=== PATIENT | female | born 1945 | race Caucasian/White ===

== ENCOUNTER 2017-07-09 22:51 | Inpatient (IN) | payer MEDICARE ==
[~2017-07-09] VITALS: Ht 160 cm; Wt 101.8 kg
[~2017-07-09 22:51] MED LIST: ALLO300 PO; ASPI81TA82 PO; BACL20TA PO; FERR65TA2 PO; FURO1TAB93 PO; GLUCTAB PO; HYDR10TA16 PO; LANSO15 PO; LIPI40TA PO; LORTA5 PO; METO50 PO; MOBI7.5T PO; PRED20 PO; SERT-132 PO; SYNT25TA PO
[2017-07-09 22:55] VITALS: BP 178/93; PULSE 90; RESP 16; TEMP 98.3; O2SAT 98
--- NOTE | 2017-07-09 23:38 | PD ---
HPI Chief Complaint: Chest Pain Time Seen by Provider: 23:32 Travel History International Travel<30 days: No Contact w/Intl Traveler<30days: No Traveled to known affect area: No History of Present Illness HPI The patient is a 72 year old female who presents to the [facility] emergency department with a history of chest pain and she reports began 2 days ago. The patient reports that the pain is located in the midepigastric area and underneath the left breast. The patient reports that the pain was coming and going until yesterday evening when it became persistent. She reports that the pain as an 8 out of 10 in severity currently. She reports that the pain has a dull character. She reports that at first she thought it may be angina or pleurisy as she has had both in the past, however the symptoms were worse this evening. She reports that she has associated nausea without vomiting. She reports that this evening the pain was radiating into the left arm. She denies having any shortness of breath. She denies having any diaphoresis. 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 She reports that she last had a stress test done approximately 2 years ago. She reports that she has had a history of cardiac catheterization with stent placement previously. On review of systems otherwise, the patient denies any recent fevers, cough, congestion, neck pain, abdominal pain, diarrhea, urinary symptoms, or neurologic symptoms. She last moved her bowels earlier today. She denies having any blood in her stool or black or tarry stools. She reports that she takes a low-dose aspirin daily. The patient denies any indigestion or worsening heartburn. [facility] Past Medical History Narrative Medical The patient's past medical history is significant for having coronary artery disease with a history of reactive At her rosace and was sent placement previously, history of hypertension, history of renal artery stenosis status post renal artery stent, history of hypothyroid disorder, asthma, osteoarthritis , hyperlipidemia, history of GI ulcers, acid reflux, gout, anemia, history of renal stones, carpal tunnel syndrome. Hx Anticoagulant Therapy: Yes (ASA) Arthritis: Yes Asthma: Yes Autoimmune Disease: No Blood Disorders: No Anxiety: No Depression: Yes Heart Rhythm Problems: Yes Cancer: No Cardiovascular Problems: Yes ([place]) High Cholesterol: Yes Chest Pain: Yes (HX OF ANGINA) Congestive Heart Failure: Yes COPD: No Cerebrovascular Accident: No Diabetes: Yes Patient Takes Glucophage: Yes (metformin ) Endocrine: No Gastrointestinal Disorders: Yes (ULCERS) GERD: Yes Gout: Yes Genitourinary: Yes (KIDNEY STONE HX) Hiatal Hernia: Yes Hypertension: Yes Immune Disorder: No Kidney Stones: Yes Musculoskeletal: No Neurologic: No Psychiatric: Yes Reproductive: No Respiratory: Yes (ASTHMA) Migraines: No Myocardial Infarction: Yes (2005) Renal Failure: No Seizures: No Sleep Apnea: Yes Ulcer: Yes Past Surgical History Narrative Surgical The patient's past surgical history is significant for a hysterectomy, bilateral knee replacements, , coronary artery catheterization with stent placement, renal artery stent. Abdominal Surgery: Yes (C SECTION,HYSTERECTOMY) AICD: No Arteriovenous Shunt: No Cardiac Surgery: Yes (STENT 2005) Section: Yes Coronary Stent: Yes (2005) Ear Surgery: No Endocrine Surgery: No Eye Surgery: Yes (CORNEA SX) Genitourinary Surgery: Yes (KIDNEY STONES-STENTS) Gynecologic Surgery: Yes (C SECTION,HYSTERECTOMY) Hysterectomy: Yes Insulin Pump: No Joint Replacement: Yes (BILATERAL KNEE ) Oral Surgery: No Pacemaker: No Thoracic Surgery: No Other Surgery: Yes Social History Alcohol Use: No Tobacco Use: No Substance Use: No Allergies-Medications (Allergen,Severity, Reaction): Uncoded Allergies: RED SNAPPER (Allergy, Severe, HIVES, 04/30/12) WOOL (Allergy, Severe, HIVES, 04/30/12) bees (Allergy, Severe, HIVES, 04/30/12) Reported Meds & Prescriptions Reported Meds & Active Scripts Active Reported Aspirin 81 Mg Chew 81 Mg CHEW DAILY Sertraline (Sertraline HCl) 50 Mg Tab 50 Mg PO DAILY Gabapentin 300 Mg Cap 300 Mg PO TID Atorvastatin (Atorvastatin Calcium) 40 Mg Tab 40 Mg PO HS Lansoprazole 30 Mg Capdr 30 Mg PO DAILY Metformin (Metformin HCl) 500 Mg Tab 500 Mg PO BIDPC Amlodipine (Amlodipine Besylate) 10 Mg Tab 10 Mg PO DAILY Metoprolol Tartrate 100 Mg Tab 150 Mg PO BID Allopurinol 300 Mg Tab 300 Mg PO DAILY Baclofen 20 Mg Tab 20 Mg PO TID Furosemide 40 Mg Tab 40 Mg PO BID Levothyroxine (Levothyroxine Sodium) 75 Mcg Tab 75 Mcg PO DAILY Potassium Chloride ER (Potassium Chloride) 10 Meq Cap 10 Meq PO DAILY Review of Systems Except as stated in HPI: all other systems reviewed are Neg General / Constitutional: No: Fever Eyes: No: Visual changes HENT: No: Headaches Cardiovascular: Positive: Chest Pain or Discomfort, No: Dyspnea on exertion Respiratory: Positive: Shortness of Breath, No: Cough Gastrointestinal: Positive: Nausea, No: Vomiting, Diarrhea, Abdominal Pain, Changes in Bowel Habits, Indigestion, Loss of Appetite Genitourinary: No: Dysuria Musculoskeletal: No: Pain Skin: No Rash Neurologic: No: Weakness Psychiatric: No: Depression Endocrine: No: Polydipsia Hematologic/Lymphatic: No: Easy Bruising Physical Exam Narrative General: The patient is a well-developed well-nourished female in no acute distress. Head and Neck exam: Head is normocephalic atraumatic. Eyes: EOMI, pupils are equal round and reactive to light. Nose: Midline septum with pink mucous membranes Mouth: Dentition unremarkable. Moist mucus membranes. Posterior oropharynx is not erythematous. No tonsillar hypertrophy. Uvula midline. Airway patent. Neck: No palpable lymphadenopathy. No nuchal rigidity. No thyromegaly. Cardiovascular: Regular rate and rhythm without murmurs, gallops, or rubs. Lungs: Clear to auscultation bilaterally. No wheezes, rhonchi, or rales. Abdomen: Soft, with reported tenderness on palpation along the midepigastric area and bilateral upper quadrants of the abdomen, no other tenderness on palpation of the lower quadrants of the abdomen. No tenderness on palpation of McBurney's point. No guarding, rebound, or rigidity. Negative Foster's sign. Normal bowel sounds are audible. Extremities: No clubbing, cyanosis, or edema. 2+ pulses in all 4 extremities. No calf tenderness on palpation. Back: No spinous process tenderness to palpation. Right-sided CVA tenderness on palpation. Neurologic Exam: Grossly nonfocal. Skin Exam: No rash noted. Intact skin that is warm and dry. Data Data Last Documented VS Vital Signs Date Time Temp Pulse Resp B/P (MAP) Pulse Ox O2 Delivery O2 Flow Rate FiO2 07/10/17 02:30 72 16 161/76 (104) 91 Room Air 07/10/17 01:00 2.00 07/09/17 22:55 98.3 Orders Orders Electrocardiogram (07/09/17 23:38) B-Type Natriuretic Peptide (07/09/17 23:38) Ckmb (Isoenzyme) Profile (07/09/17 23:38) Complete Blood Count With Diff (07/09/17 23:38) Comprehensive Metabolic Panel (07/09/17:38) Magnesium (Mg) (07/09/17 23:38) Prothrombin Time / Inr (Pt) (07/09/17:38) Act Partial Throm Time (Ptt) (07/09/17:38) Troponin I (07/09/17:38) Lipase (07/09/17 23:38) Chest, Single Ap (07/09/17:38) Ecg Monitoring (07/09/17:38) Bilateral Bp Monitoring (07/09/17:38) Iv Access Insert/Monitor (07/09/17:38) Oximetry (07/09/17:38) Oxygen Administration (07/09/17 23:38) Aspirin Chew (Aspirin Chew) (07/09/17 23:45) Nitroglycerin 2% Oint (Nitroglycerin 2% (07/09/17 23:45) Sodium Chloride 0.9% Flush (Ns Flush) (07/09/17 23:45) Nitroglycerin Sl (Nitrostat Sl) (07/09/17 23:45) CKMB (07/09/17 23:45) CKMB% (07/09/17 23:45) Potassium Chloride Eff (K-Lyte Cl Eff) (07/10/17 01:00) Urinalysis - C+S If Indicated (07/10/17 02:15) Admit Order (Ed Use Only) (07/10/17 02:42) Urine Culture (07/10/17 02:20) Labs Laboratory Tests Test 07/09/17 23:45 07/10/17 02:20 White Blood Count 15.6 TH/MM3 Red Blood Count 4.07 MIL/MM3 Hemoglobin 11.4 GM/DL Hematocrit 34.2 % Mean Corpuscular Volume 83.9 FL Mean Corpuscular Hemoglobin 27.9 PG Mean Corpuscular Hemoglobin Concent 33.3 % Red Cell Distribution Width 14.9 % Platelet Count 465 TH/MM3 Mean Platelet Volume 7.4 FL Neutrophils (%) (Auto) 73.8 % Lymphocytes (%) (Auto) 18.3 % Monocytes (%) (Auto) 6.0 % Eosinophils (%) (Auto) 1.2 % Basophils (%) (Auto) 0.7 % Neutrophils # (Auto) 11.5 TH/MM3 Lymphocytes # (Auto) 2.8 TH/MM3 Monocytes # (Auto) 0.9 TH/MM3 Eosinophils # (Auto) 0.2 TH/MM3 Basophils # (Auto) 0.1 TH/MM3 CBC Comment DIFF FINAL Differential Comment Prothrombin Time 12.0 SEC Prothromb Time International Ratio 1.1 RATIO Activated Partial Thromboplast Time 32.9 SEC Blood Urea Nitrogen 15 MG/DL Creatinine 0.97 MG/DL Random Glucose 138 MG/DL Total Protein 8.4 GM/DL Albumin 3.3 GM/DL Calcium Level 8.0 MG/DL Magnesium Level 0.9 MG/DL Alkaline Phosphatase 185 U/L Aspartate Amino Transf (AST/SGOT) 14 U/L Alanine Aminotransferase (ALT/SGPT) 10 U/L Total Bilirubin 0.3 MG/DL Sodium Level 137 MEQ/L Potassium Level 2.4 MEQ/L Chloride Level 94 MEQ/L Carbon Dioxide Level 31.3 MEQ/L Anion Gap 12 MEQ/L Estimat Glomerular Filtration Rate 56 ML/MIN Total Creatine Kinase 130 U/L Creatine Kinase MB 1.0 NG/ML Troponin I LESS THAN 0.02 NG/ML B-Type Natriuretic Peptide 42 PG/ML Lipase 173 U/L Urine Color YELLOW Urine Turbidity HAZY Urine pH 5.5 Urine Specific [place] 1.012 Urine Protein TRACE mg/dL Urine Glucose (UA) NEG mg/dL Urine Ketones NEG mg/dL Urine Occult Blood SMALL Urine Nitrite NEG Urine Bilirubin NEG Urine Urobilinogen LESS THAN 2.0 MG/DL Urine Leukocyte Esterase LARGE Urine RBC 2 /hpf Urine WBC 13 /hpf Urine Squamous Epithelial Cells 2 /hpf Urine Transitional Epithelial Cells 3 /hpf Microscopic Urinalysis Comment CULTURE INDICATED MDM Medical Decision Making Medical Screen Exam Complete: Yes Emergency Medical Condition: Yes Medical Record Reviewed: Yes Interpretation(s) Last Impressions Chest X-Ray 07/09/17 5692 Signed Impressions: Service Date/Time: Sunday, July 09, 2017 23:44 - CONCLUSION: 1. No acute cardiopulmonary disease. Lj Vasquez MD Differential Diagnosis Acute coronary syndrome, versus pancreatitis, versus acid reflux, versus peptic ulcer disease Narrative Course During the course of the patients emergency department visit, the patients history, examination, and differential diagnosis were reviewed with the patient. The patient had IV access obtained and blood work sent for analysis. The patient was placed on a classroom monitor with oximetry and blood pressure monitoring. An EKG was done on arrival. The patient's EKG showed no evidence of acute ST segment elevation. The patient was initially provided aspirin 324 mg by mouth 1, nitroglycerin sublingual 1, nitroglycerin 1 inch the chest wall. The patients laboratory studies were reviewed and remarkable for a white count of 15.6, hemoglobin 11.4, platelets 465 with 73.8 neutrophil. CMP is remarkable for potassium 2.4 which was supplemented orally with 50 mEq of potassium chloride. Glucose 138, calcium 8.0, magnesium 0.9, AST 14, alkaline phosphatase 185, CPK 1:30, troponin I less than 0.02, BNP 42, lipase 173. PT 12 , PTT 32.9, urinalysis shows small occult blood, large leukocyte esterase, 13 WBCs, culture indicated. Culture will be done. Radiology studies were reviewed and remarkable for a chest x-ray that shows no evidence of acute cardiopulmonary disease. Given the patient's history of coronary artery disease the patient will be admitted to the hospital for rule out serial cardiac enzyme protocol as well as further treatment of her hypokalemia. The patients results were discussed with the patient, including the plan of care. I explained that further testing and/ or monitoring is indicated based on the patients history, examination, and/ or laboratory findings. Therefore, I recommended admission for additional evaluation. The patient expressed understanding and was agreeable with this plan. The patient was admitted to the hospital in stable condition and sent to a bed under the care of [facility]. Physician Communication Physician Communication The patient's case was d/w Dr. Rivero for admission. She did agree to admit the patient for further evaluation and treatment at this time. Diagnosis Primary Impression: Chest pain, rule out acute myocardial infarction Additional Impression: Hypokalemia Admitting Information Admitting Physician Requests: Admit Iris Hernandes MD Jul 09, 2017 23:38
[2017-07-09 23:39] VITALS: BP 173/84; PULSE 73; RESP 18; O2SAT 91
[2017-07-09] MEDS ORDERED: ALLO300T2 PO (23:39)
[2017-07-09] MEDS ORDERED: LEVO75TA3 PO (23:39)
[2017-07-09] MEDS ORDERED: ATOR40TA16 PO (23:39)
[2017-07-09] MEDS ORDERED: AMLO10TA2 PO (23:39)
[2017-07-09] MEDS ORDERED: ASPI81CH CHEW (23:39)
[2017-07-09] MEDS ORDERED: BACL20TA PO (23:39)
[2017-07-09] MEDS ORDERED: METO100T PO (23:39)
[2017-07-09] MEDS ORDERED: FURO40TA PO (23:39)
[2017-07-09] MEDS ORDERED: METF500T PO (23:39)
[2017-07-09] MEDS ORDERED: GABA300C5 PO (23:39)
[2017-07-09] MEDS ORDERED: POTA10CA PO (23:39)
[2017-07-09] MEDS ORDERED: LANS30CA PO (23:39)
[2017-07-09] MEDS ORDERED: SERT-132 PO (23:39)
[2017-07-09] MEDS ORDERED: ASPIRIN 81 MG CHEW TAB PO ONE (23:45)
[2017-07-09] MEDS ORDERED: SODIUM CHLORIDE 0.9% FLUSH 10 ML FLUSH IVF PRN (23:45)
[2017-07-09] MEDS ORDERED: NITROGLYCERIN 0.4 MG SL 25 TABS/BTL SL ONE (23:45)
[2017-07-09] MEDS ORDERED: NITROGLYCERIN 2% OINT 1 GM PACKET TOP ONE (23:45)
[2017-07-09 23:55] VITALS: BP 161/79; PULSE 84; RESP 18; O2SAT 94
[2017-07-09 23:55] LABS: AUTOMATED NEUTROPHIL # 11.5 TH/MM3 (1.8-7.7); BASOPHIL # 0.1 TH/MM3 (0-0.2); BASOPHIL % 0.7 % (0.0-2.0); EOSINOPHIL # 0.2 TH/MM3 (0-0.4); EOSINOPHIL % 1.2 % (0.0-4.0); HEMATOCRIT 34.2 % (35.0-46.0); HEMO FLAGS DIFF FINAL; LYMPH % 18.3 % (9.0-44.0); LYMPHOCYTE # 2.8 TH/MM3 (1.0-4.8); MEAN CELL VOLUME 83.9 FL (80.0-100.0); MEAN CORPUSCULAR HEMOGLOBIN 27.9 PG (27.0-34.0); MEAN CORPUSCULAR HGB CONC 33.3 % (32.0-36.0); NEUT % 73.8 % (16.0-70.0); PLATELET COUNT 465 TH/MM3 (150-450); RED BLOOD COUNT 4.07 MIL/MM3 (4.00-5.30); RED CELL DISTRIBUTION WIDTH 14.9 % (11.6-17.2); WHITE BLOOD COUNT 15.6 TH/MM3 (4.0-11.0)
[2017-07-10] VITALS (18 sets, daily range): BP systolic 130–161; BP diastolic 60–87; PULSE 66–89; RESP 16–24; TEMP 98.5–99.3; O2SAT 91–97
--- NOTE | 2017-07-10 00:22 | RADRPT ---
EXAM DATE/TIME: 07/09/2017 23:44 [place] COMPARISON: No previous studies available for comparison. INDICATIONS : Chest pain. MEDICAL HISTORY : Hypertension. Diabetes mellitus type II. Asthma SURGICAL HISTORY : Coronary artery stent. Renal stent ENCOUNTER: Initial ACUITY: 1 day PAIN SCORE: 5/10 LOCATION: Bilateral chest FINDINGS: A single view of the chest demonstrates the lungs to be symmetrically aerated without evidence of mas s, infiltrate or effusion. The cardiomediastinal contours are unremarkable. Osseous structures are intact. CONCLUSION: 1. No acute cardiopulmonary disease. Lj Vasquez MD on July 10, 2017 at 0:21 Board Certified Radiologist. This report was verified electronically.
[2017-07-10 00:35] LABS: ALKALINE PHOSPHATASE 185 U/L (45-117); ALT (GPT) 10 U/L (10-53); ANION GAP 12 MEQ/L (5-15); AST (GOT) 14 U/L (15-37); BICARBONATE 31.3 MEQ/L (21.0-32.0); BLOOD UREA NITROGEN 15 MG/DL (7-18); CHLORIDE 94 MEQ/L (98-107); CREATINE KINASE 130 U/L (26-192); GLOMERULAR FILTRATION RATE 56 ML/MIN (>89); MAGNESIUM 0.9 MG/DL (1.5-2.5); SODIUM (NA) 137 MEQ/L (136-145); TOTAL BILIRUBIN ADULT 0.3 MG/DL (0.2-1.0)
[2017-07-10 00:50] LABS: POTASSIUM 2.4 MEQ/L (3.5-5.1)
[2017-07-10 00:52] LABS: APTT (PATIENT) 32.9 SEC (24.3-30.1); INTERNATIONAL NORMALIZED RATIO 1.1 RATIO
[2017-07-10] MEDS ORDERED: POTASSIUM CHLORIDE 25 MEQ EFFERVESCENT TAB PO ONE (01:00)
[2017-07-10 02:42] LABS: BLOOD, URINE SMALL (NEG); COMMENT (UR) CULTURE INDICATED; CULTURE IF INDICATED CULTURE INDICATED; GLUCOSE,URINE NEG (NEG); KETONE, URINE NEG (NEG); NITRITE,URINE NEG (NEG); PH, URINE 5.5 (5.0-8.5); SQUAMOUS EPITHELIAL CELL URINE 2 /hpf (0-5); TRANSITIONAL EPI CELLS, URINE 3 /hpf; URINE COLOR YELLOW (YELLW/STRAW)
[2017-07-10] MEDS ORDERED: ONDANSETRON HCL 4 MG/2 ML VIAL IVP PRN (02:45)
[2017-07-10] MEDS ORDERED: SODIUM CHLORIDE 0.9% FLUSH 10 ML FLUSH IV FLUSH PRN (02:45)
[2017-07-10] MEDS ORDERED: DEXTROSE 50% IN WATER 50 ML VIAL(D50) IV PUSH PRN (02:45)
[2017-07-10] MEDS ORDERED: MAGNESIUM HYDROXIDE SUSP 30 ML CUP PO PRN (02:45)
[2017-07-10] MEDS ORDERED: ACETAMINOPHEN 325 MG TAB PO PRN (02:45)
[2017-07-10] MEDS ORDERED: SENNOSIDES 8.6 MG TAB PO PRN (02:45)
[2017-07-10] MEDS ORDERED: BISACODYL 10 MG SUPP RECTAL PRN (02:45)
[2017-07-10] MEDS ORDERED: LACTULOSE SYRUP 20 GM/30 ML CUP PO PRN (02:45)
[2017-07-10] MEDS ORDERED: GLUCAGON 1 MG/ML VIAL OTHER PRN (02:45)
[2017-07-10] MEDS ORDERED: MAGNESIUM SULFATE 1 GM PREMIX 100 ML IV ONE ×2 (03:00→19:15)
[2017-07-10] MEDS ORDERED: NITROGLYCERIN 2% OINT 1 GM PACKET TOPICAL PRN (03:00)
[2017-07-10] MEDS ORDERED: PILL SPLITTER OTHER PRN (03:15)
--- NOTE | 2017-07-10 03:22 | HHI.HP ---
HPI Service [facility] Primary Care Physician Saul Taylor, DO Admission Diagnosis cp r/o mi, hypokalemia Diagnoses: (1) Chest pain Diagnosis: Principal (2) Hypokalemia Diagnosis: Principal (3) Hypomagnesemia Diagnosis: Principal (4) Dehydration Diagnosis: Principal (5) HTN (hypertension) Diagnosis: Principal (6) UTI (urinary tract infection) Diagnosis: Principal (7) DM (diabetes mellitus) Diagnosis: Principal Travel History International Travel<30 Days: No Contact w/Intl Traveler <30 Da: No Traveled to Known Affected Are: No History of Present Illness This is a 72-year-old female with a PMH of Depression, HTN, Hyperlipidemia, GERD , Gout, Asthma, DM and Hypothyroidism who presented to the ER with complaints of chest pain x2-3 days. States symptoms have been intermittent but have gotten progressively worse. Notes pain mostly underneath left breast and epigastric region. Denies nausea, vomiting or diarrhea. H/o CAD s/p Stent approx 4-5yrs ago. States she follows w/ Dr. Kirkpatrick but hasn't seen him in several years. No c/o SOB, cough or sick contacts. On arrival, BUN 38/93, HR 90, O2 sat 98% on RA, Afebrile. WBC 15.6. K+ 2.4. GFR 56. Trop negative. INR 1.1. U/a w/ UTI. CXR w/ no acute findings. Currently chest pain free. S/ p K+ replacement in ER. Review of Systems Except as stated in HPI: all other systems reviewed are Neg ROS: 14 point review of systems otherwise negative. Past Family Social History Past Medical History PMH: Depression, HTN, Hyperlipidemia, GERD, Gout, Asthma, DM and Hypothyroidism Past Surgical History PAST SURGICAL HISTORY: , Hysterectomy, Cardiac Stent, Bilateral Knee Replacements, Renal Artery Stent, Cornea Surgery Allergies: Uncoded Allergies: RED SNAPPER (Allergy, Severe, HIVES, 04/30/12) WOOL (Allergy, Severe, HIVES, 04/30/12) bees (Allergy, Severe, HIVES, 04/30/12) Family History PAST FAMILY HISTORY: Reviewed. No h/o DM or CAD Social History PAST SOCIAL HISTORY: Negative for alcohol, tobacco or drugs. Physical Exam Vital Signs Vital Signs Date Time Temp Pulse Resp B/P (MAP) Pulse Ox O2 Delivery O2 Flow Rate FiO2 07/10/17 02:30 72 16 161/76 (104) 91 Room Air 07/10/17 01:00 66 16 141/78 (99) 97 Nasal Cannula 2.00 07/09/17 23:55 84 18 161/79 (106) 94 Nasal Cannula 2.00 07/09/17 23:39 91 Nasal Cannula 2.00 07/09/17 23:39 73 18 173/84 (113) 91 Room Air 07/09/17 23:29 87 07/09/17 22:55 98.3 90 16 178/93 (121) 98 Room Air Physical Exam PE: GENERAL: Elderly white female in no acute distress. Son at bedside HEENT: PERRLA, EOMI. No scleral icterus or conjunctival pallor. No lid lag or facial droop. CARDIOVASCULAR: Regular rate and rhythm. No obvious murmurs to auscultation. No chest tenderness to palpation. RESPIRATORY: No obvious rhonchi or wheezing. Clear to auscultation. Breath sounds equal bilaterally. GASTROINTESTINAL: Abdomen soft, mild epigastric tenderness to palpation, nondistended. BS normal. MUSCULOSKELETAL: Extremities without clubbing, cyanosis, or edema. No obvious deformities. NEUROLOGICAL: Awake, alert and oriented x4. No focal neurologic deficits. Moving both upper and lower extremities spontaneously. Laboratory Laboratory Tests Test 07/09/17 23:45 07/10/17 02:20 White Blood Count 15.6 Red Blood Count 4.07 Hemoglobin 11.4 Hematocrit 34.2 Mean Corpuscular Volume 83.9 Mean Corpuscular Hemoglobin 27.9 Mean Corpuscular Hemoglobin Concent 33.3 Red Cell Distribution Width 14.9 Platelet Count 465 Mean Platelet Volume 7.4 Neutrophils (%) (Auto) 73.8 Lymphocytes (%) (Auto) 18.3 Monocytes (%) (Auto) 6.0 Eosinophils (%) (Auto) 1.2 Basophils (%) (Auto) 0.7 Neutrophils # (Auto) 11.5 Lymphocytes # (Auto) 2.8 Monocytes # (Auto) 0.9 Eosinophils # (Auto) 0.2 Basophils # (Auto) 0.1 CBC Comment DIFF FINAL Differential Comment Prothrombin Time 12.0 Prothromb Time International Ratio 1.1 Activated Partial Thromboplast Time 32.9 Blood Urea Nitrogen 15 Creatinine 0.97 Random Glucose 138 Total Protein 8.4 Albumin 3.3 Calcium Level 8.0 Magnesium Level 0.9 Alkaline Phosphatase 185 Aspartate Amino Transf (AST/SGOT) 14 Alanine Aminotransferase (ALT/SGPT) 10 Total Bilirubin 0.3 Sodium Level 137 Potassium Level 2.4 Chloride Level 94 Carbon Dioxide Level 31.3 Anion Gap 12 Estimat Glomerular Filtration Rate 56 Total Creatine Kinase 130 Creatine Kinase MB 1.0 Troponin I LESS THAN 0.02 B-Type Natriuretic Peptide 42 Lipase 173 Urine Color YELLOW Urine Turbidity HAZY Urine pH 5.5 Urine Specific [place] 1.012 Urine Protein TRACE Urine Glucose (UA) NEG Urine Ketones NEG Urine Occult Blood SMALL Urine Nitrite NEG Urine Bilirubin NEG Urine Urobilinogen LESS THAN 2.0 Urine Leukocyte Esterase LARGE Urine RBC 2 Urine WBC 13 Urine Squamous Epithelial Cells 2 Urine Transitional Epithelial Cells 3 Microscopic Urinalysis Comment CULTURE INDICATED Date/Time Source Procedure Growth Status 07/10/17 02:20 Urine Random Urine Urine Culture Pending Received Result Diagram: 07/09/17 2345 07/09/17 2345 Caprini VTE Risk Assessment Caprini VTE Risk Assessment: No/Low Risk (score <= 1) Caprini Risk Assessment Model Point Value = 1 Point Value = 2 Point Value = 3 Point Value = 5 Age 41-60 Minor surgery BMI > 25 kg/m2 Swollen legs Varicose veins or History of unexplained or recurrent spontaneous Oral contraceptives or hormone replacement Sepsis (< 1 month) Serious lung disease, including pneumonia (< 1 month) Abnormal pulmonary function Acute myocardial infarction Congestive heart failure (< 1 month) History of inflammatory bowel disease Medical patient at bed rest Age 61-74 Arthroscopic surgery Major open surgery (> 45 min) Laparoscopic surgery (> 45 min) Malignancy Confined to bed (> 72 hours) Immobilizing plaster cast Central venous access Age >= 75 History of VTE Family history of VTE Factor V Leiden Prothrombin [id number] Lupus anticoagulant Anticardiolipin antibodies Elevated serum homocysteine Heparin-induced thrombocytopenia Other congenital or acquired thrombophilia Stroke (< 1 month) Elective arthroplasty Hip, pelvis, or leg fracture Acute spinal cord injury (< 1 month) Prophylaxis Regimen Total Risk Factor Score Risk Level Prophylaxis Regimen 0-1 Low Early ambulation 2 Moderate Order ONE of the following: *Sequential Compression Device (SCD) *Heparin 5000 units SQ BID 3-4 Higher Order ONE of the following medications: *Heparin 5000 units SQ TID *Enoxaparin/Lovenox 40 mg SQ daily (WT < 150 kg, CrCl > 30 mL/min) *Enoxaparin/Lovenox 30 mg SQ daily (WT < 150 kg, CrCl > 10-29 mL/min) *Enoxaparin/Lovenox 30 mg SQ BID (WT < 150 kg, CrCl > 30 mL/min) AND/OR *Sequential Compression Device (SCD) 5 or more Highest Order ONE of the following medications: *Heparin 5000 units SQ TID (Preferred with Epidurals) *Enoxaparin/Lovenox 40 mg SQ daily (WT < 150 kg, CrCl > 30 mL/min) *Enoxaparin/Lovenox 30 mg SQ daily (WT < 150 kg, CrCl > 10-29 mL/min) *Enoxaparin/Lovenox 30 mg SQ BID (WT < 150 kg, CrCl > 30 mL/min) AND *Sequential Compression Device (SCD) Assessment and Plan Problem List: (1) Chest pain ICD Code: R07.9 - Chest pain, unspecified (2) Hypokalemia ICD Code: E87.6 - Hypokalemia (3) Hypomagnesemia ICD Code: E83.42 - Hypomagnesemia (4) Dehydration ICD Code: E86.0 - Dehydration (5) HTN (hypertension) ICD Code: I10 - Essential (primary) hypertension (6) UTI (urinary tract infection) ICD Code: N39.0 - Urinary tract infection, site not specified (7) DM (diabetes mellitus) ICD Code: E11.9 - Type 2 diabetes mellitus without complications Assessment and Plan A/P: 1. Chest Pain: h/o CAD s/p Cardiac Stent approx 4yrs ago, now w/ chest pain x2 -3 days, r/o ACS. Initial trop negative, EKG w/ no acute ischemia. Check serial cardiac enzymes, resume home ASA, Statin, Metoprolol. NTG/Morphine prn, currently chest pain free. 2. Hypokalemia: Severe. K+ 2.4. S/p replacement in ER, will recheck and replace as needed. 3. Hypomagnesemia: Mg 0.9, will replace and recheck. 4. Dehydration: GFR 56, previously 90 on 01/03/14. U/a positive for UTI, IVF for hydration, repeat labs in am. 5. UTI: U/a +, Start Rocephin IV. 6. DM: Sliding scale w/ Accu-Cheks, hold Metformin for possibility of cardiac intervention. 7. DVT Prophylaxis: SCD/Teds. 8. Social work for d/c planning as needed. 9. Case discussed w/ ER physician at length. Physician Certification 2 Midnight Certification Type: Admission for Inpatient Services Order for Inpatient Services The services are ordered in accordance with Medicare regulations or non- Medicare payer requirements, as applicable. In the case of services not specified as inpatient-only, they are appropriately provided as inpatient services in accordance with the 2-midnight benchmark. Estimated LOS (days): 2 days is the estimated time the patient will need to remain in the hospital, assuming treatment plan goals are met and no additional complications. Post-Hospital Plan: Not yet determined Zuly Rivero MD Jul 10, 2017 03:22
[2017-07-10] MEDS: ACETAMINOPHEN/HYDROcodone 325 MG/5 MG TAB PO PRN ×3 (03:51→15:12)
[2017-07-10] MEDS: cefTRIAXone INJ 1,000 MG in SODIUM CHLORIDE 0.9% INJ 100 ML IV SCH (04:37)
[2017-07-10] MEDS: INSULIN ASPART SUPPLEMENTAL SCALE SQ SCH ×4 (08:00→21:00)
[2017-07-10] MEDS: LEVOTHYROXINE SODIUM 75 MCG TAB PO SCH (08:01)
[2017-07-10] MEDS: FUROSEMIDE 40 MG TAB PO SCH ×2 (08:02→21:52)
[2017-07-10] MEDS: ASPIRIN 81 MG CHEW TAB CHEW SCH (08:02)
[2017-07-10] MEDS: SODIUM CHLORIDE 0.9% FLUSH 10 ML FLUSH IV FLUSH SCH ×2 (08:02→21:53)
[2017-07-10] MEDS: BACLOFEN 20 MG TAB PO SCH ×3 (08:02→17:19)
[2017-07-10] MEDS: GABAPENTIN 300 MG CAP PO SCH ×3 (08:02→17:19)
[2017-07-10] MEDS: ALLOPURINOL 300 MG TAB PO SCH (08:03)
[2017-07-10] MEDS: SERTRALINE HCL 50 MG TAB PO SCH (08:03)
[2017-07-10] MEDS: PANTOPRAZOLE SOD 40 MG DELAYED RELEASE TAB PO SCH (08:03)
[2017-07-10] MEDS: DOCUSATE SODIUM 50 MG/SENNA 8.6 MG TAB PO SCH ×2 (08:03→21:52)
[2017-07-10 08:19] LABS: ALKALINE PHOSPHATASE 146 U/L (45-117); ALT (GPT) 8 U/L (10-53); ANION GAP 9 MEQ/L (5-15); AST (GOT) 8 U/L (15-37); BICARBONATE 34.3 MEQ/L (21.0-32.0); BLOOD UREA NITROGEN 14 MG/DL (7-18); CHLORIDE 95 MEQ/L (98-107); GLOMERULAR FILTRATION RATE 58 ML/MIN (>89); MAGNESIUM 1.2 MG/DL (1.5-2.5); SODIUM (NA) 138 MEQ/L (136-145); TOTAL BILIRUBIN ADULT 0.2 MG/DL (0.2-1.0)
[2017-07-10 08:34] LABS: POTASSIUM 2.5 MEQ/L (3.5-5.1)
[2017-07-10] MEDS ORDERED: METOPROLOL TARTRATE 100 MG TAB PO SCH (09:00)
--- NOTE | 2017-07-10 11:54 | HHI.PR ---
Subjective Remarks in no acute distress. looks comfortable. BMP result noted. son at the bedside. d/w the RN. Objective Vitals Vital Signs Date Time Temp Pulse Resp B/P (MAP) Pulse Ox O2 Delivery O2 Flow Rate FiO2 07/10/17 11:41 80 20 157/76 (103) 93 Nasal Cannula 2.00 07/10/17 08:06 Nasal Cannula 2.00 07/10/17 08:06 76 17 157/87 (110) 97 Room Air 2.00 07/10/17 04:38 82 16 130/72 (91) 94 Nasal Cannula 2.00 07/10/17 02:30 72 16 161/76 (104) 91 Room Air 07/10/17 01:00 66 16 141/78 (99) 97 Nasal Cannula 2.00 07/09/17 23:55 84 18 161/79 (106) 94 Nasal Cannula 2.00 07/09/17 23:39 91 Nasal Cannula 2.00 07/09/17 23:39 73 18 173/84 (113) 91 Room Air 07/09/17 23:29 87 07/09/17 22:55 98.3 90 16 178/93 (121) 98 Room Air I/O 07/09/17 07/09/17 07/09/17 07/10/17 07/10/17 07/10/17 07:00 15:00 23:00 07:00 15:00 23:00 Intake Total 200 ml Balance 200 ml Intake IV Total 200 ml Result Diagram: 07/09/17 2345 07/10/17 0601 Imaging Last Impressions Chest X-Ray 07/09/17 2338 Signed Impressions: Service Date/Time: Sunday, July 09, 2017 23:44 - CONCLUSION: 1. No acute cardiopulmonary disease. Lj Vasquez MD Objective Remarks GENERAL: This is a well-nourished, well-developed patient, in no apparent distress. CARDIOVASCULAR: Regular rate and regular rhythm without murmurs, gallops, or rubs. RESPIRATORY: Clear to auscultation. Breath sounds equal bilaterally. No wheezes , rales, or rhonchi. chest is tender to touch. GASTROINTESTINAL: Abdomen soft, non-tender, nondistended. Normal, active bowel sounds MUSCULOSKELETAL: Extremities without clubbing, cyanosis, or edema. NEURO: Alert & Oriented x4 to person, place, time, situation. Moves all ext x4 Medications and IVs Current Medications Aspirin (Aspirin Chew) 324 mg ONCE ONCE PO Last administered on 07/09/17 23: 48; Start 07/09/17 at 23:45; Stop 07/09/17 at 23:46; Status DC Nitroglycerin (Nitroglycerin 2% Oint) 1 inch ONCE ONCE TOP Last administered on 07/09/17 23:48; Start 07/09/17 at 23:45; Stop 07/09/17 at 23:46; Status DC Sodium Chloride (NS Flush) 2 ml UNSCH PRN IVF FLUSH AFTER USING IV ACCESS; Start 07/09/17 at 23:45; Stop 07/10/17 at 03:04; Status DC Nitroglycerin (Nitrostat Sl) 0.4 mg ONCE ONCE SL Last administered on 23:48; Start 07/09/17 at 23:45; Stop 07/09/17 at 23:46; Status DC Potassium Bicarb/ Potassium Chloride (K-Lyte Cl Eff) 50 meq ONCE ONCE PO Last administered on 07/10/17 01:15; Start 07/10/17 at 01:00; Stop 07/10/17 at 01:01; Status DC Magnesium Sulfate/ Dextrose 100 ml @ 100 mls/hr ONCE ONCE IV Last administered on 07/10/17 03:05; Start 07/10/17 at 03:00; Stop 07/10/17 at 03 :59; Status DC Dextrose (D50w (Vial) Inj) 50 ml UNSCH PRN IV PUSH HYPOGLYCEMIA-SEE COMMENTS; Start 07/10/17 at 02:45 Glucagon (Glucagon Inj) 1 mg UNSCH PRN OTHER HYPOGLYCEMIA-SEE COMMENTS; Start 07/10/17 at 02:45 Insulin Aspart (NovoLOG SUPPLEMENTAL SCALE) 1 ACHS SLIDING SCALE SQ ; Start at 08:00 Sodium Chloride (NS Flush) 2 ml UNSCH PRN IV FLUSH FLUSH AFTER USING IV ACCESS ; Start 07/10/17 at 02:45 Sodium Chloride (NS Flush) 2 ml BID IV FLUSH Last administered on 07/10/17 08 :02; Start 07/10/17 at 09:00 Ondansetron HCl (Zofran Inj) 4 mg Q6H PRN IVP NAUSEA OR VOMITING; Start at 02:45 Acetaminophen (Tylenol) 650 mg Q6H PRN PO FEVER/PAIN SCALE 1 TO 2; Start 07/10 at 02:45 Acetaminophen/ Hydrocodone Bitart ([place] 5-325 Mg) 1 tab Q4H PRN PO PAIN SCALE 3 TO 5 Last administered on 07/10/17 09:41; Start 07/10/17 at 02:45 Morphine Sulfate (Morphine Inj) 2 mg Q3H PRN IV PUSH Pain 6-10; Start at 02:45 Senna/Docusate Sodium (Sarita-Colace) 1 tab BID PO Last administered on 08:03; Start 07/10/17 at 09:00 Magnesium Hydroxide (Milk Of Magnesia Liq) 30 ml Q12H PRN PO Mild constipation ; Start 07/10/17 at 02:45 Sennosides (Senokot) 17.2 mg Q12H PRN PO Moderate constipation; Start at 02:45 Bisacodyl (Dulcolax Supp) 10 mg DAILY PRN RECTAL SEVERE CONSITIPATION; Start 07/10/17 at 02:45 Lactulose (Lactulose Liq) 30 ml DAILY PRN PO SEVERE CONSITIPATION; Start 07/10 at 02:45 Allopurinol (Zyloprim) 300 mg DAILY PO Last administered on 07/10/17 08:03; Start 07/10/17 at 09:00 Amlodipine Besylate (Norvasc) 10 mg DAILY PO Last administered on 07/10/17 08 :03; Start 07/10/17 at 09:00 Aspirin (Aspirin Chew) 81 mg DAILY CHEW Last administered on 07/10/17 08:02; Start 07/10/17 at 09:00 Atorvastatin Calcium (Lipitor) 40 mg HS PO ; Start 07/10/17 at 21:00 Baclofen (Lioresal) 20 mg TID PO ; Start 07/10/17 at 09:00 Furosemide (Lasix) 40 mg BID PO Last administered on 07/10/17 08:02; Start 07/10/17 at 09:00 Gabapentin (Neurontin) 300 mg TID PO Last administered on 07/10/17 08:02; Start 07/10/17 at 09:00 Levothyroxine Sodium (Synthroid) 75 mcg DAILY@0700 PO Last administered on 08:01; Start 07/10/17 at 07:00 Metoprolol Tartrate (Lopressor) 150 mg BID PO Last administered on 07/10/17 08:02; Start 07/10/17 at 09:00 Sertraline HCl (Zoloft) 50 mg DAILY PO Last administered on 07/10/17 08:03; Start 07/10/17 at 09:00 Pantoprazole Sodium (Protonix) 40 mg DAILY PO Last administered on 07/10/17 08:03; Start 07/10/17 at 09:00 Nitroglycerin (Nitroglycerin 2% Oint) 0.5 inch Q6HR PRN TOPICAL CHEST PAIN; Start 07/10/17 at 03:00 Miscellaneous (Pill Splitter) 1 ea UNSCH PRN OTHER SEE LABEL COMMENTS; Start 07/10/17 at 03:15 Ceftriaxone Sodium 1000 mg/ Sodium Chloride 100 ml @ 200 mls/hr Q24H IV Last administered on 07/10/17 04:37; Start 07/10/17 at 04:00 Potassium Chloride (KCl) 40 meq ONCE ONCE PO Last administered on 07/10/17 11:43; Start 07/10/17 at 12:00; Stop 07/10/17 at 12:01 Potassium Chloride (KCl) 40 meq ONCE ONCE PO ; Start 07/10/17 at 15:00; Stop 07/10/17 at 15:01 Potassium Chloride 100 ml @ 50 mls/hr ONCE ONCE IV Last administered on 07/10 11:43; Start 07/10/17 at 12:00; Stop 07/10/17 at 13:59 A/P Problem List: (1) Chest pain ICD Code: R07.9 - Chest pain, unspecified (2) Hypokalemia ICD Code: E87.6 - Hypokalemia (3) Hypomagnesemia ICD Code: E83.42 - Hypomagnesemia (4) Dehydration ICD Code: E86.0 - Dehydration (5) HTN (hypertension) ICD Code: I10 - Essential (primary) hypertension (6) UTI (urinary tract infection) ICD Code: N39.0 - Urinary tract infection, site not specified (7) DM (diabetes mellitus) ICD Code: E11.9 - Type 2 diabetes mellitus without complications Assessment and Plan A/p 1. Chest Pain: h/o CAD s/p Cardiac Stent approx 4yrs ago, now w/ chest pain x2 -3 days, r/o ACS. Initial trops negative, EKG w/ no acute ischemia. resume home ASA, Statin, Metoprolol. NTG/Morphine prn, currently chest pain free. stress test tomorrow- 2. Hypokalemia: Severe. K+ 2.4. S/p replacement in ER, will recheck and replace as needed. 3. Hypomagnesemia: Mg 0.9, will replace and recheck. 4. Dehydration: IVF for hydration, repeat labs in am. 5. UTI: U/a +, continue Rocephin IV. 6. DM: Sliding scale w/ Accu-Cheks, hold Metformin for now. 7. DVT Prophylaxis: SCD/Teds. Leatha Tom MD Jul 10, 2017 11:54
[2017-07-10] MEDS ORDERED: POTASSIUM CHLORIDE 10 MEQ CONTROLLED RELEASE TAB PO ONE ×2 (12:00→15:00)
[2017-07-10] MEDS ORDERED: POTASSIUM CHLOR 20 MEQ PREMIX 100 ML IV ONE (12:00)
[2017-07-10 17:58] LABS: MAGNESIUM 1.2 MG/DL (1.5-2.5)
[2017-07-10 18:13] LABS: POTASSIUM 2.9 MEQ/L (3.5-5.1)
[2017-07-10] MEDS ORDERED: POTASSIUM CHLORIDE 20 MEQ CONTROLLED RELEASE TAB PO ONE (19:15)
[2017-07-10] MEDS: ATORVASTATIN 40 MG TAB PO SCH (21:52)
[2017-07-10] MEDS: MORPHINE SULFATE 4 MG/ML INJ IV PUSH PRN (21:54)
--- NOTE | 2017-07-10 22:09 | EKG ---
Date Performed: 07/09/2017 Time Performed: 23:14:03 PTAGE: 72 years EKG: Sinus rhythm WITH SINUS ARRHYTHMIA WITH FIRST DEGREE AV BLOCK MODERATE ST DEPRESSION ABNORMAL ECG PREVIOUS TRACING : 01/03/2014 19.31 Compared to the previous tracing ST changes more prominent DOCTOR: Luke Joaquin Interpretating Date/Time 07/10/2017 22:08:17
[2017-07-10] MEDS ORDERED: SODIUM CHLOR 0.9% 1000 ML INJ 1,000 ML IV SCH (23:00)
[2017-07-11] VITALS (25 sets, daily range): BP systolic 120–153; BP diastolic 67–90; PULSE 72–98; RESP 16–22; TEMP 98.1–98.8; O2SAT 90–94
[2017-07-11] MEDS: POTASSIUM CHLORIDE 20 MEQ CONTROLLED RELEASE TAB PO SCH ×2 (00:03→04:16)
[2017-07-11] MEDS: cefTRIAXone INJ 1,000 MG in SODIUM CHLORIDE 0.9% INJ 100 ML IV SCH (04:27)
[2017-07-11] MEDS: MORPHINE SULFATE 4 MG/ML INJ IV PUSH PRN ×4 (05:52→16:48)
[2017-07-11] MEDS: LEVOTHYROXINE SODIUM 75 MCG TAB PO SCH (06:06)
[2017-07-11 07:05] LABS: AUTOMATED NEUTROPHIL # 7.1 TH/MM3 (1.8-7.7); BASOPHIL # 0.1 TH/MM3 (0-0.2); BASOPHIL % 0.5 % (0.0-2.0); EOSINOPHIL # 0.1 TH/MM3 (0-0.4); EOSINOPHIL % 1.4 % (0.0-4.0); HEMO FLAGS DIFF FINAL; LYMPH % 20.2 % (9.0-44.0); MEAN CELL VOLUME 84.1 FL (80.0-100.0); MEAN CORPUSCULAR HEMOGLOBIN 28.5 PG (27.0-34.0); MEAN CORPUSCULAR HGB CONC 33.9 % (32.0-36.0); NEUT % 69.9 % (16.0-70.0); PLATELET COUNT 393 TH/MM3 (150-450); RED BLOOD COUNT 3.45 MIL/MM3 (4.00-5.30); RED CELL DISTRIBUTION WIDTH 15.1 % (11.6-17.2); WHITE BLOOD COUNT 10.2 TH/MM3 (4.0-11.0)
[2017-07-11 07:34] LABS: BICARBONATE 30.3 MEQ/L (21.0-32.0); MAGNESIUM 1.5 MG/DL (1.5-2.5)
[2017-07-11] MEDS: INSULIN ASPART SUPPLEMENTAL SCALE SQ SCH ×4 (07:35→21:00)
[2017-07-11 07:36] LABS: POTASSIUM 2.8 MEQ/L (3.5-5.1)
--- NOTE | 2017-07-11 08:05 | HHI.PR ---
Subjective Remarks f/u; chest pain has some chest pain today. no sob. still hypokalemia; denies any vomiting, diarrhea. no other complaints. d/w the RN . Objective Vitals Vital Signs Date Time Temp Pulse Resp B/P (MAP) Pulse Ox O2 Delivery O2 Flow Rate FiO2 07/11/17 06:56 16 07/11/17 06:00 98 07/11/17 05:00 96 07/11/17 04:00 88 07/11/17 03:00 79 07/11/17 02:00 76 07/11/17 01:00 88 07/11/17 00:00 92 07/11/17 00:00 98.5 93 22 153/90 (111) 92 07/10/17 23:00 89 07/10/17 22:00 86 07/10/17 21:00 70 07/10/17 20:00 78 07/10/17 19:02 89 07/10/17 19:00 99.3 78 24 144/80 (101) 91 07/10/17 18:00 80 07/10/17 17:00 74 07/10/17 16:15 20 07/10/17 16:00 74 07/10/17 16:00 74 07/10/17 15:16 98.5 72 20 138/60 (86) 95 07/10/17 15:00 66 07/10/17 14:16 98.8 71 20 154/78 (103) 95 07/10/17 14:10 07/10/17 13:39 70 18 160/82 (108) 97 Nasal Cannula 2.00 07/10/17 11:41 80 20 157/76 (103) 93 Nasal Cannula 2.00 07/10/17 08:06 Nasal Cannula 2.00 07/10/17 08:06 76 17 157/87 (110) 97 Room Air 2.00 I/O 07/10/17 07/10/17 07/10/17 07/11/17 07/11/17 07/11/17 07:00 15:00 23:00 07:00 15:00 23:00 Intake Total 200 ml 338 ml Balance 200 ml 338 ml Intake Oral 240 ml IV Total 200 ml 98 ml # Voids 1 Result Diagram: 07/11/1733 07/11/1733 Imaging Last Impressions Chest X-Ray 07/09/17 2729 Signed Impressions: Service Date/Time: Sunday, July 09, 2017 23:44 - CONCLUSION: 1. No acute cardiopulmonary disease. Lj Vasquez MD Objective Remarks GENERAL: This is a well-nourished, well-developed patient, in no apparent distress. CARDIOVASCULAR: Regular rate and regular rhythm without murmurs, gallops, or rubs. RESPIRATORY: Clear to auscultation. Breath sounds equal bilaterally. No wheezes , rales, or rhonchi. chest is tender to touch. GASTROINTESTINAL: Abdomen soft, non-tender, nondistended. Normal, active bowel sounds MUSCULOSKELETAL: Extremities without clubbing, cyanosis, or edema. NEURO: Alert & Oriented x4 to person, place, time, situation. Moves all ext x4 Medications and IVs Current Medications Aspirin (Aspirin Chew) 324 mg ONCE ONCE PO Last administered on 07/09/17 23: 48; Start 07/09/17 at 23:45; Stop 07/09/17 at 23:46; Status DC Nitroglycerin (Nitroglycerin 2% Oint) 1 inch ONCE ONCE TOP Last administered on 07/09/17 23:48; Start 07/09/17 at 23:45; Stop 07/09/17 at 23:46; Status DC Sodium Chloride (NS Flush) 2 ml UNSCH PRN IVF FLUSH AFTER USING IV ACCESS; Start 07/09/17 at 23:45; Stop 07/10/17 at 03:04; Status DC Nitroglycerin (Nitrostat Sl) 0.4 mg ONCE ONCE SL Last administered on 23:48; Start 07/09/17 at 23:45; Stop 07/09/17 at 23:46; Status DC Potassium Bicarb/ Potassium Chloride (K-Lyte Cl Eff) 50 meq ONCE ONCE PO Last administered on 07/10/17 01:15; Start 07/10/17 at 01:00; Stop 07/10/17 at 01:01; Status DC Magnesium Sulfate/ Dextrose 100 ml @ 100 mls/hr ONCE ONCE IV Last administered on 07/10/17 03:05; Start 07/10/17 at 03:00; Stop 07/10/17 at 03 :59; Status DC Dextrose (D50w (Vial) Inj) 50 ml UNSCH PRN IV PUSH HYPOGLYCEMIA-SEE COMMENTS; Start 07/10/17 at 02:45 Glucagon (Glucagon Inj) 1 mg UNSCH PRN OTHER HYPOGLYCEMIA-SEE COMMENTS; Start 07/10/17 at 02:45 Insulin Aspart (NovoLOG SUPPLEMENTAL SCALE) 1 ACHS SLIDING SCALE SQ Last administered on 07/10/17 21:00; Start 07/10/17 at 08:00 Sodium Chloride (NS Flush) 2 ml UNSCH PRN IV FLUSH FLUSH AFTER USING IV ACCESS ; Start 07/10/17 at 02:45 Sodium Chloride (NS Flush) 2 ml BID IV FLUSH Last administered on 07/10/17 21 :53; Start 07/10/17 at 09:00 Ondansetron HCl (Zofran Inj) 4 mg Q6H PRN IVP NAUSEA OR VOMITING; Start at 02:45 Acetaminophen (Tylenol) 650 mg Q6H PRN PO FEVER/PAIN SCALE 1 TO 2; Start 07/10 at 02:45 Acetaminophen/ Hydrocodone Bitart ([place] 5-325 Mg) 1 tab Q4H PRN PO PAIN SCALE 3 TO 5 Last administered on 07/10/17 15:12; Start 07/10/17 at 02:45 Morphine Sulfate (Morphine Inj) 2 mg Q3H PRN IV PUSH Pain 6-10 Last administered on 07/11/17 05:52; Start 07/10/17 at 02:45 Senna/Docusate Sodium (Sarita-Colace) 1 tab BID PO Last administered on 21:52; Start 07/10/17 at 09:00 Magnesium Hydroxide (Milk Of Magnesia Liq) 30 ml Q12H PRN PO Mild constipation ; Start 07/10/17 at 02:45 Sennosides (Senokot) 17.2 mg Q12H PRN PO Moderate constipation; Start at 02:45 Bisacodyl (Dulcolax Supp) 10 mg DAILY PRN RECTAL SEVERE CONSITIPATION; Start 07/10/17 at 02:45 Lactulose (Lactulose Liq) 30 ml DAILY PRN PO SEVERE CONSITIPATION; Start 07/10 at 02:45 Allopurinol (Zyloprim) 300 mg DAILY PO Last administered on 07/10/17 08:03; Start 07/10/17 at 09:00 Amlodipine Besylate (Norvasc) 10 mg DAILY PO Last administered on 07/10/17 08 :03; Start 07/10/17 at 09:00 Aspirin (Aspirin Chew) 81 mg DAILY CHEW Last administered on 07/10/17 08:02; Start 07/10/17 at 09:00 Atorvastatin Calcium (Lipitor) 40 mg HS PO Last administered on 07/10/17 21: 52; Start 07/10/17 at 21:00 Baclofen (Lioresal) 20 mg TID PO Last administered on 07/10/17 17:19; Start 07/10/17 at 09:00 Furosemide (Lasix) 40 mg BID PO Last administered on 07/10/17 21:52; Start 07/10/17 at 09:00 Gabapentin (Neurontin) 300 mg TID PO Last administered on 07/10/17 17:19; Start 07/10/17 at 09:00 Levothyroxine Sodium (Synthroid) 75 mcg DAILY@0700 PO Last administered on 06:06; Start 07/10/17 at 07:00 Metoprolol Tartrate (Lopressor) 150 mg BID PO Last administered on 07/10/17 08:02; Start 07/10/17 at 09:00; Status Future Hold Sertraline HCl (Zoloft) 50 mg DAILY PO Last administered on 07/10/17 08:03; Start 07/10/17 at 09:00 Pantoprazole Sodium (Protonix) 40 mg DAILY PO Last administered on 07/10/17 08:03; Start 07/10/17 at 09:00 Nitroglycerin (Nitroglycerin 2% Oint) 0.5 inch Q6HR PRN TOPICAL CHEST PAIN; Start 07/10/17 at 03:00 Miscellaneous (Pill Splitter) 1 ea UNSCH PRN OTHER SEE LABEL COMMENTS; Start 07/10/17 at 03:15 Ceftriaxone Sodium 1000 mg/ Sodium Chloride 100 ml @ 200 mls/hr Q24H IV Last administered on 07/11/17 04:27; Start 07/10/17 at 04:00 Potassium Chloride (KCl) 40 meq ONCE ONCE PO Last administered on 07/10/17 11:43; Start 07/10/17 at 12:00; Stop 07/10/17 at 12:01; Status DC Potassium Chloride (KCl) 40 meq ONCE ONCE PO Last administered on 07/10/17 15:12; Start 07/10/17 at 15:00; Stop 07/10/17 at 15:01; Status DC Potassium Chloride 100 ml @ 50 mls/hr ONCE ONCE IV Last administered on 07/10 11:43; Start 07/10/17 at 12:00; Stop 07/10/17 at 13:59; Status DC Sodium Chloride 1,000 ml @ 50 mls/hr Q20H IV Last administered on 07/10/17 23:00; Start 07/10/17 at 23:00 Magnesium Sulfate/ Dextrose 100 ml @ 200 mls/hr NOW ONCE IV Last administered on 07/10/17 21:50; Start 07/10/17 at 19:15; Stop 07/10/17 at 19 :44; Status DC Potassium Chloride (KCl) 40 meq NOW ONCE PO Last administered on 07/10/17 21 :51; Start 07/10/17 at 19:15; Stop 07/10/17 at 19:16; Status DC Potassium Chloride (KCl) 40 meq Q4H PO Last administered on 07/11/17 04:16; Start 07/10/17 at 23:00; Stop 07/11/17 at 03:01; Status DC A/P Problem List: (1) Chest pain ICD Code: R07.9 - Chest pain, unspecified (2) Hypokalemia ICD Code: E87.6 - Hypokalemia (3) Hypomagnesemia ICD Code: E83.42 - Hypomagnesemia (4) Dehydration ICD Code: E86.0 - Dehydration (5) HTN (hypertension) ICD Code: I10 - Essential (primary) hypertension (6) UTI (urinary tract infection) ICD Code: N39.0 - Urinary tract infection, site not specified (7) DM (diabetes mellitus) ICD Code: E11.9 - Type 2 diabetes mellitus without complications Assessment and Plan A/p 1. Chest Pain: h/o CAD s/p Cardiac Stent approx 4yrs ago, now w/ chest pain x2 -3 days. Initial trops negative. resumed home ASA, Statin. NTG/Morphine prn, has some pain today; will repeat EKG. previously d/w 's office; she was seen by in the past but didn't have any follow-up since few years ago. will consult cardiology. 2. Hypokalemia: persistent. hold lasix for now- will replace and monitor. repeat the level this afternoon. 3. Hypomagnesemia: better- will monitor. 4. Dehydration: received IVF. 5. UTI: U/a +, continue Rocephin IV. follow the UC. 6. DM: Sliding scale w/ Accu-Cheks, hold Metformin for now. 7. DVT Prophylaxis: lovenox. Discharge Planning still with electrolyte abnormalities. stress test tomorrow if electrolytes stable. Leatha Tom MD Jul 11, 2017 08:05
[2017-07-11] MEDS ORDERED: POTASSIUM CHLORIDE 10 MEQ CONTROLLED RELEASE TAB PO ONE ×2 (08:45→12:30)
[2017-07-11] MEDS ORDERED: METOPROLOL TARTRATE 100 MG TAB PO ONE (09:00)
[2017-07-11] MEDS ORDERED: POTASSIUM CHLOR 20 MEQ PREMIX 100 ML IV ONE (09:00)
[2017-07-11] MEDS ORDERED: MAGNESIUM SULFATE 1 GM PREMIX 100 ML IV ONE (09:00)
[2017-07-11] MEDS: ALLOPURINOL 300 MG TAB PO SCH (09:00)
[2017-07-11] MEDS: SERTRALINE HCL 50 MG TAB PO SCH (09:19)
[2017-07-11] MEDS: BACLOFEN 20 MG TAB PO SCH ×3 (09:19→16:48)
[2017-07-11] MEDS: GABAPENTIN 300 MG CAP PO SCH ×3 (09:20→16:48)
[2017-07-11] MEDS: ASPIRIN 81 MG CHEW TAB CHEW SCH (09:20)
[2017-07-11] MEDS: DOCUSATE SODIUM 50 MG/SENNA 8.6 MG TAB PO SCH ×2 (09:20→22:25)
[2017-07-11] MEDS: PANTOPRAZOLE SOD 40 MG DELAYED RELEASE TAB PO SCH (09:20)
[2017-07-11] MEDS: ACETAMINOPHEN/HYDROcodone 325 MG/5 MG TAB PO PRN ×2 (09:21→16:48)
[2017-07-11] MEDS: SODIUM CHLORIDE 0.9% FLUSH 10 ML FLUSH IV FLUSH SCH ×2 (09:21→22:25)
[2017-07-11] MEDS: ENOXAPARIN SODIUM 40 MG/0.4 ML SYRINGE SQ SCH (09:22)
--- NOTE | 2017-07-11 14:21 | MB ---
cc: MERYL POP M.D. DATE OF CONSULTATION: 07/11/2017 REASON FOR CONSULTATION Evaluation of chest pain. HISTORY OF PRESENT ILLNESS Lori Gomez is a 72-year-old female with known heart disease. She had a non-STEMI in November 2005 and had a 3.0 x 23 mm Cypher stent placed in her proximal LAD which jailed the diagonal branch. Her last cath was February 28, 2007 showing at most 25% in-stent restenosi. The circumflex artery had irregularities. The right coronary artery had 30-40% disease. She is a patient of Dr. Kirkpatrick and last saw him in 2012. Dr. Kirkpatrick has since retired. She came in with complaints of dull constant chest pain with some nausea. Her troponins have been normal. She had extremely low potassium and magnesium which I think is probably because she has been on 40 mg of Lasix but with no potassium replacement. Her primary is still in the process of trying to get this fixed. The chest pain has been unrelenting. Her troponins are normal. She says it is a constant left lower chest pain and it is reproducible when I press over the epigastrium and left upper quadrant of her abdomen. She has known peptic ulcer disease. She took meloxicam prior to this admission. She is now just on 81 mg aspirin. She is also on pantoprazole. She has had a drop in her hematocrit from 34.0 to 29 with a corresponding drop in hemoglobin from 11.4 to 9.8. I have already called Dr. Reynolds and requesting endoscopy to evaluate her to see if she has an upper GI bleed. She has had a nuclear stress test in the past which was normal but this has been some years ago. PAST MEDICAL HISTORY 1. Diabetes. 2. Obesity. 3. Degenerate joint disease. 4. Gout. 5. Chronic feet and back pain. 6. Hypothyroidism. 7. Previous ulcers. 8. Kidney stones. 9. History of renal artery stenosis. 10.Past iron-deficiency. 11.Asthma. 12.Dental abscesses/gum disease. 13.Hyperlipidemia. 14.Previous cardiac arrest. 15.Obesity. PAST SURGICAL HISTORY 1. Renal artery stent which is a 5.0 x 17 mm stent on December 23, 2005. 2. Coronary stent placed in 2005 as well. 3. C-sections. 4. Hysterectomy. 5. Bilateral knee replacements. ALLERGIES 1. BEES. 2. RED SNAPPER. 3. WOOL. FAMILY HISTORY Positive for CHF and stroke. SOCIAL HISTORY Has never smoked. Does not drink. She is . REVIEW OF SYSTEMS Otherwise noncontributory. PHYSICAL EXAMINATION GENERAL: A morbidly obese white female in no acute distress. VITAL SIGNS: Charted. She has had blood pressure readings as high as 178/93. The last recorded blood pressure is 128/74. HEENT: Unremarkable. NECK: No JVD. No bruits. CHEST: Diminished breath sounds. CARDIAC: S1, S2, regular rate and rhythm. No murmurs or gallops appreciated. ABDOMEN: Notable for some mild left upper quadrant tenderness and epigastric tenderness. EXTREMITIES: No clubbing, cyanosis or edema. EKG EKG showed no evidence for ischemia. LABORATORY Troponins are negative. Hematocrit has gone from 34 to 29. Potassium and magnesium are low and repletion has been ordered. IMAGING Chest x-ray showed no acute disease. IMPRESSION This is a 72-year-old female with constant chest pain. I am strongly suspicious of peptic ulcer disease. She has a drop in hematocrit and she has epigastric and left upper quadrant tenderness. She also has known coronary artery disease, however, there is currently no objective evidence for ischemia. She will need to have this evaluated further but first I think she needs to have an upper endoscopy to make sure she does not have active peptic ulcer disease. I have called Dr. Reynolds directly. Will have this done prior to any further cardiac work-up. I would be fearful doing a cath at this point with the drop in hematocrit. Further therapy to be determined. MD GABBY Oh/MING /1:38 PM /2:03 PM
[2017-07-11 17:35] LABS: MAGNESIUM 1.8 MG/DL (1.5-2.5)
[2017-07-11] MEDS: METOPROLOL TARTRATE 25 MG TAB PO SCH (22:25)
[2017-07-11] MEDS: ATORVASTATIN 40 MG TAB PO SCH (22:25)
[2017-07-11] MEDS ORDERED: SODIUM CHLORID 0.9% 500 ML INJ 500 ML IV ONE (23:00)
[2017-07-12] VITALS (19 sets, daily range): BP systolic 153–162; BP diastolic 72–90; PULSE 72–107; RESP 16–18; TEMP 98.4–99.5; O2SAT 91–94
--- NOTE | 2017-07-12 00:40 | PD.CONS ---
HPI History of Present Illness This is a 72 year old female who presents with complaints of chest pain with known history of coronary artery disease and peptic ulcer disease and the concern is that she may have recurrence of her peptic ulcer disease the patient denies any abdominal pain denies any nausea or vomiting denies any hematemesis coffee-ground emesis denies any melena or hematochezia she also denies any heartburn or reflux denies any change in appetite or weight loss PFSH Past Medical History PMH: Depression, HTN, Hyperlipidemia, GERD, Gout, Asthma, DM and Hypothyroidism Past Surgical History PAST SURGICAL HISTORY: , Hysterectomy, Cardiac Stent, Bilateral Knee Replacements, Renal Artery Stent, Cornea Surgery Uncoded Allergies: RED SNAPPER (Allergy, Severe, HIVES, 04/30/12) WOOL (Allergy, Severe, HIVES, 04/30/12) bees (Allergy, Severe, HIVES, 04/30/12) Medications Current Medications Aspirin (Aspirin Chew) 324 mg ONCE ONCE PO Last administered on 07/09/17 23: 48; Start 07/09/17 at 23:45; Stop 07/09/17 at 23:46; Status DC Nitroglycerin (Nitroglycerin 2% Oint) 1 inch ONCE ONCE TOP Last administered on 07/09/17 23:48; Start 07/09/17 at 23:45; Stop 07/09/17 at 23:46; Status DC Sodium Chloride (NS Flush) 2 ml UNSCH PRN IVF FLUSH AFTER USING IV ACCESS; Start 07/09/17 at 23:45; Stop 07/10/17 at 03:04; Status DC Nitroglycerin (Nitrostat Sl) 0.4 mg ONCE ONCE SL Last administered on 23:48; Start 07/09/17 at 23:45; Stop 07/09/17 at 23:46; Status DC Potassium Bicarb/ Potassium Chloride (K-Lyte Cl Eff) 50 meq ONCE ONCE PO Last administered on 07/10/17 01:15; Start 07/10/17 at 01:00; Stop 07/10/17 at 01:01; Status DC Magnesium Sulfate/ Dextrose 100 ml @ 100 mls/hr ONCE ONCE IV Last administered on 07/10/17 03:05; Start 07/10/17 at 03:00; Stop 07/10/17 at 03 :59; Status DC Dextrose (D50w (Vial) Inj) 50 ml UNSCH PRN IV PUSH HYPOGLYCEMIA-SEE COMMENTS; Start 07/10/17 at 02:45 Glucagon (Glucagon Inj) 1 mg UNSCH PRN OTHER HYPOGLYCEMIA-SEE COMMENTS; Start 07/10/17 at 02:45 Insulin Aspart (NovoLOG SUPPLEMENTAL SCALE) 1 ACHS SLIDING SCALE SQ Last administered on 07/11/17 16:48; Start 07/10/17 at 08:00 Sodium Chloride (NS Flush) 2 ml UNSCH PRN IV FLUSH FLUSH AFTER USING IV ACCESS ; Start 07/10/17 at 02:45 Sodium Chloride (NS Flush) 2 ml BID IV FLUSH Last administered on 07/11/17 22 :25; Start 07/10/17 at 09:00 Ondansetron HCl (Zofran Inj) 4 mg Q6H PRN IVP NAUSEA OR VOMITING; Start at 02:45 Acetaminophen (Tylenol) 650 mg Q6H PRN PO FEVER/PAIN SCALE 1 TO 2; Start 07/10 at 02:45 Acetaminophen/ Hydrocodone Bitart ([place] 5-325 Mg) 1 tab Q4H PRN PO PAIN SCALE 3 TO 5 Last administered on 07/11/17 16:48; Start 07/10/17 at 02:45 Morphine Sulfate (Morphine Inj) 2 mg Q3H PRN IV PUSH Pain 6-10 Last administered on 07/11/17 16:48; Start 07/10/17 at 02:45 Senna/Docusate Sodium (Sarita-Colace) 1 tab BID PO Last administered on 22:25; Start 07/10/17 at 09:00 Magnesium Hydroxide (Milk Of Magnesia Liq) 30 ml Q12H PRN PO Mild constipation ; Start 07/10/17 at 02:45 Sennosides (Senokot) 17.2 mg Q12H PRN PO Moderate constipation; Start at 02:45 Bisacodyl (Dulcolax Supp) 10 mg DAILY PRN RECTAL SEVERE CONSITIPATION; Start 07/10/17 at 02:45 Lactulose (Lactulose Liq) 30 ml DAILY PRN PO SEVERE CONSITIPATION; Start 07/10 at 02:45 Allopurinol (Zyloprim) 300 mg DAILY PO Last administered on 07/11/17 09:00; Start 07/10/17 at 09:00 Amlodipine Besylate (Norvasc) 10 mg DAILY PO Last administered on 07/11/17 09 :20; Start 07/10/17 at 09:00; Stop 07/11/17 at 14:46; Status DC Aspirin (Aspirin Chew) 81 mg DAILY CHEW Last administered on 07/11/17 09:20; Start 07/10/17 at 09:00 Atorvastatin Calcium (Lipitor) 40 mg HS PO Last administered on 07/11/17 22: 25; Start 07/10/17 at 21:00 Baclofen (Lioresal) 20 mg TID PO Last administered on 07/11/17 16:48; Start 07/10/17 at 09:00 Furosemide (Lasix) 40 mg BID PO Last administered on 07/10/17 21:52; Start 07/10/17 at 09:00; Status Future Hold Gabapentin (Neurontin) 300 mg TID PO Last administered on 07/11/17 16:48; Start 07/10/17 at 09:00 Levothyroxine Sodium (Synthroid) 75 mcg DAILY@0700 PO Last administered on 06:06; Start 07/10/17 at 07:00 Metoprolol Tartrate (Lopressor) 150 mg BID PO Last administered on 07/10/17 08:02; Start 07/10/17 at 09:00; Status Future Hold Sertraline HCl (Zoloft) 50 mg DAILY PO Last administered on 07/11/17 09:19; Start 07/10/17 at 09:00 Pantoprazole Sodium (Protonix) 40 mg DAILY PO Last administered on 07/11/17 09:20; Start 07/10/17 at 09:00 Nitroglycerin (Nitroglycerin 2% Oint) 0.5 inch Q6HR PRN TOPICAL CHEST PAIN; Start 07/10/17 at 03:00 Miscellaneous (Pill Splitter) 1 ea UNSCH PRN OTHER SEE LABEL COMMENTS; Start 07/10/17 at 03:15 Ceftriaxone Sodium 1000 mg/ Sodium Chloride 100 ml @ 200 mls/hr Q24H IV Last administered on 07/11/17 04:27; Start 07/10/17 at 04:00 Potassium Chloride (KCl) 40 meq ONCE ONCE PO Last administered on 07/10/17 11:43; Start 07/10/17 at 12:00; Stop 07/10/17 at 12:01; Status DC Potassium Chloride (KCl) 40 meq ONCE ONCE PO Last administered on 07/10/17 15:12; Start 07/10/17 at 15:00; Stop 07/10/17 at 15:01; Status DC Potassium Chloride 100 ml @ 50 mls/hr ONCE ONCE IV Last administered on 07/10 11:43; Start 07/10/17 at 12:00; Stop 07/10/17 at 13:59; Status DC Sodium Chloride 1,000 ml @ 50 mls/hr Q20H IV Last administered on 07/10/17 23:00; Start 07/10/17 at 23:00; Stop 07/11/17 at 08:00; Status DC Magnesium Sulfate/ Dextrose 100 ml @ 200 mls/hr NOW ONCE IV Last administered on 07/10/17 21:50; Start 07/10/17 at 19:15; Stop 07/10/17 at 19 :44; Status DC Potassium Chloride (KCl) 40 meq NOW ONCE PO Last administered on 07/10/17 21 :51; Start 07/10/17 at 19:15; Stop 07/10/17 at 19:16; Status DC Potassium Chloride (KCl) 40 meq Q4H PO Last administered on 07/11/17 04:16; Start 07/10/17 at 23:00; Stop 07/11/17 at 03:01; Status DC Potassium Chloride (KCl) 40 meq ONCE ONCE PO Last administered on 07/11/17 09:19; Start 07/11/17 at 08:45; Stop 07/11/17 at 08:46; Status DC Potassium Chloride (KCl) 40 meq ONCE ONCE PO Last administered on 07/11/17 12:00; Start 07/11/17 at 12:30; Stop 07/11/17 at 12:31; Status DC Potassium Chloride 100 ml @ 50 mls/hr BOLUS ONCE IV Last administered on 09:00; Start 07/11/17 at 09:00; Stop 07/11/17 at 10:59; Status DC Magnesium Sulfate/ Dextrose 100 ml @ 100 mls/hr ONCE ONCE IV Last administered on 07/11/17 09:18; Start 07/11/17 at 09:00; Stop 07/11/17 at 09 :59; Status DC Enoxaparin Sodium (Lovenox Inj) 40 mg Q24H SQ Last administered on 07/11/17 09:22; Start 07/11/17 at 09:00 Sodium Chloride 500 ml @ 40 mls/hr [id number] ONCE IV Last administered on 23:50; Start 07/11/17 at 23:00; Stop 07/12/17 at 11:29 Metoprolol Tartrate (Lopressor) 150 mg ONCE ONCE PO Last administered on 07/11 09:20; Start 07/11/17 at 09:00; Stop 07/11/17 at 09:01; Status DC Metoprolol Tartrate (Lopressor) 12.5 mg Q12HR PO Last administered on 22:25; Start 07/11/17 at 21:00 Amlodipine Besylate (Norvasc) 2.5 mg DAILY PO ; Start 07/12/17 at 09:00 Family History PAST FAMILY HISTORY: Reviewed. No h/o DM or CAD Social History PAST SOCIAL HISTORY: Negative for alcohol, tobacco or drugs. Review of Systems ROS Review of systems Patient denies any headache dizziness blurry vision, denies any chest pain shortness of breath cough fever chills, Denies any palpitations or fatigue denies any polyuria dysuria hematuria, denies any numbness tingling or weakness, denies any skin rash pruritus or jaundice, denies any easy bruising or bleeding tendency, denies any recent change in mood GI Exam Vitals I&O Vital Signs Date Time Temp Pulse Resp B/P (MAP) Pulse Ox O2 Delivery O2 Flow Rate FiO2 07/11/17 23:25 98.6 78 16 133/73 (93) 92 07/11/17 23:00 82 07/11/17 22:00 78 07/11/17 21:00 80 07/11/17 20:00 86 07/11/17 20:00 98.8 89 16 120/67 (84) 90 07/11/17 19:00 88 07/11/17 18:00 86 07/11/17 17:31 20 07/11/17 17:00 86 07/11/17 16:55 16 07/11/17 16:00 98.2 72 16 126/70 (88) 93 07/11/17 16:00 77 07/11/17 15:00 76 07/11/17 14:00 78 07/11/17 13:00 80 07/11/17 12:00 98.1 81 18 128/74 (92) 94 07/11/17 12:00 75 07/11/17 11:00 74 07/11/17 10:00 86 07/11/17 09:00 90 07/11/17 08:00 91 07/11/17 08:00 98.1 90 16 149/81 (103) 93 07/11/17 07:00 82 07/11/17 06:00 98 07/11/17 05:00 96 07/11/17 04:00 88 07/11/17 03:00 79 07/11/17 03:00 98.6 97 22 143/86 (105) 91 07/11/17 02:00 76 07/11/17 01:00 88 I/O 07/11/17 07/11/17 07/11/17 07/12/17 07/12/17 07/12/17 07:00 15:00 23:00 07:00 15:00 23:00 Intake Total 720 ml 1760 ml Output Total 240 ml Balance 480 ml 1760 ml Intake Oral 720 ml 620 ml IV Total 1140 ml Output Urine Total 240 ml # Voids 1 4 # Bowel Movements 0 Imaging Last Impressions Chest X-Ray 07/09/17 6721 Signed Impressions: Service Date/Time: Sunday, July 09, 2017 23:44 - CONCLUSION: 1. No acute cardiopulmonary disease. Lj Vasquez MD Laboratory Test 07/11/17 05:33 07/11/17 16:28 White Blood Count 10.2 TH/MM3 Red Blood Count 3.45 MIL/MM3 Hemoglobin 9.8 GM/DL Hematocrit 29.0 % Mean Corpuscular Volume 84.1 FL Mean Corpuscular Hemoglobin 28.5 PG Mean Corpuscular Hemoglobin Concent 33.9 % Red Cell Distribution Width 15.1 % Platelet Count 393 TH/MM3 Mean Platelet Volume 7.4 FL Neutrophils (%) (Auto) 69.9 % Lymphocytes (%) (Auto) 20.2 % Monocytes (%) (Auto) 8.0 % Eosinophils (%) (Auto) 1.4 % Basophils (%) (Auto) 0.5 % Neutrophils # (Auto) 7.1 TH/MM3 Lymphocytes # (Auto) 2.0 TH/MM3 Monocytes # (Auto) 0.8 TH/MM3 Eosinophils # (Auto) 0.1 TH/MM3 Basophils # (Auto) 0.1 TH/MM3 CBC Comment DIFF FINAL Differential Comment Blood Urea Nitrogen 10 MG/DL Creatinine 0.76 MG/DL Random Glucose 131 MG/DL Calcium Level 8.3 MG/DL Magnesium Level 1.5 MG/DL 1.8 MG/DL Sodium Level 137 MEQ/L Potassium Level 2.8 MEQ/L 4.0 MEQ/L Chloride Level 97 MEQ/L Carbon Dioxide Level 30.3 MEQ/L Anion Gap 10 MEQ/L Estimat Glomerular Filtration Rate 74 ML/MIN Date/Time Source Procedure Growth Status 07/10/17 02:20 Urine Random Urine Urine Culture - Final 50-100,000 CFU/ML MIXED GRAM POSITIVE... Complete Physical Examination HEENT: Pupils round and reactive to light; normocephalic; atraumatic; no jaundice. Throat is clear. NECK: Neck is supple, no JVD, no lymphadenopathy. CHEST: Chest is clear to auscultation and percussion. CARDIAC: Regular rate and rhythm with no murmur gallop or rubs. ABDOMEN: Soft, nondistended, nontender; no hepatosplenomegaly; bowel sounds are present in all four quadrants. Obese EXTREMITIES: No clubbing, cyanosis, or edema. SKIN: Normal; no rash; no jaundice. [employer]: No focal deficits; alert and oriented times three. Assessment and Plan Plan Patient presenting with chest pain with history of coronary artery disease and peptic ulcer disease she is also noted to be anemic Cardiology is requesting an EGD for clearance prior to interventions that may require anticoagulation Patient is agreeable to this procedure Further recommendations shall depend on the findings Continue with current supportive care Monitor labs and transfuse as needed Continue PPI Chico Reynolds MD Jul 12, 2017 00:40
[2017-07-12] MEDS: cefTRIAXone INJ 1,000 MG in SODIUM CHLORIDE 0.9% INJ 100 ML IV SCH (03:16)
[2017-07-12] MEDS: LEVOTHYROXINE SODIUM 75 MCG TAB PO SCH (05:44)
[2017-07-12 06:30] LABS: HEMATOCRIT 28.6 % (35.0-46.0); MEAN CELL VOLUME 85.2 FL (80.0-100.0); MEAN CORPUSCULAR HEMOGLOBIN 28.3 PG (27.0-34.0); MEAN CORPUSCULAR HGB CONC 33.2 % (32.0-36.0); PLATELET COUNT 359 TH/MM3 (150-450); RED BLOOD COUNT 3.36 MIL/MM3 (4.00-5.30); RED CELL DISTRIBUTION WIDTH 15.2 % (11.6-17.2); REVIEW FLAG FINAL
[2017-07-12 06:59] LABS: ANION GAP 9 MEQ/L (5-15); AST (GOT) 8 U/L (15-37); BICARBONATE 30.3 MEQ/L (21.0-32.0); BLOOD UREA NITROGEN 12 MG/DL (7-18); CHLORIDE 99 MEQ/L (98-107); GLOMERULAR FILTRATION RATE 88 ML/MIN (>89); POTASSIUM 3.8 MEQ/L (3.5-5.1); SODIUM (NA) 138 MEQ/L (136-145)
[2017-07-12 07:00] LABS: ALT (GPT) 6 U/L (10-53)
[2017-07-12 07:04] LABS: ALKALINE PHOSPHATASE 149 U/L (45-117); TOTAL BILIRUBIN ADULT 0.3 MG/DL (0.2-1.0)
[2017-07-12] MEDS: ENOXAPARIN SODIUM 40 MG/0.4 ML SYRINGE SQ SCH (07:53)
[2017-07-12] MEDS: INSULIN ASPART SUPPLEMENTAL SCALE SQ SCH ×4 (08:00→20:16)
--- NOTE | 2017-07-12 08:14 | HHI.PR ---
Subjective Remarks in no acute distress. still with some chest/epigastric pain. no nausea/ vomiting. Objective Vitals Vital Signs Date Time Temp Pulse Resp B/P (MAP) Pulse Ox O2 Delivery O2 Flow Rate FiO2 07/12/17 04:15 98.6 72 16 162/90 (114) 93 07/12/17 04:00 92 07/12/17 02:00 72 07/12/17 01:00 78 07/12/17 00:00 74 07/11/17 23:25 98.6 78 16 133/73 (93) 92 07/11/17 23:00 82 07/11/17 22:00 78 07/11/17 21:00 80 07/11/17 20:00 86 07/11/17 20:00 98.8 89 16 120/67 (84) 90 07/11/17 19:00 88 07/11/17 18:00 86 07/11/17 17:31 20 07/11/17 17:00 86 07/11/17 16:55 16 07/11/17 16:00 98.2 72 16 126/70 (88) 93 07/11/17 16:00 77 07/11/17 15:00 76 07/11/17 14:00 78 07/11/17 13:00 80 07/11/17 12:00 98.1 81 18 128/74 (92) 94 07/11/17 12:00 75 07/11/17 11:00 74 07/11/17 10:00 86 07/11/17 09:00 90 I/O 07/11/17 07/11/17 07/11/17 07/12/17 07/12/17 07/12/17 07:00 15:00 23:00 07:00 15:00 23:00 Intake Total 720 ml 1760 ml 1225 ml Output Total 240 ml 350 ml Balance 480 ml 1760 ml 875 ml Intake Oral 720 ml 620 ml 680 ml IV Total 1140 ml 545 ml Output Urine Total 240 ml 350 ml # Voids 1 4 # Bowel Movements 0 0 Result Diagram: 07/12/17 0540 07/12/17 0540 Imaging Last Impressions Chest X-Ray 07/09/17 3532 Signed Impressions: Service Date/Time: Sunday, July 09, 2017 23:44 - CONCLUSION: 1. No acute cardiopulmonary disease. Lj Vasquez MD Objective Remarks GENERAL: This is a well-nourished, well-developed patient, in no apparent distress. CARDIOVASCULAR: Regular rate and regular rhythm without murmurs, gallops, or rubs. RESPIRATORY: Clear to auscultation. Breath sounds equal bilaterally. No wheezes , rales, or rhonchi. chest is tender to touch. GASTROINTESTINAL: Abdomen soft, non-tender, nondistended. Normal, active bowel sounds MUSCULOSKELETAL: Extremities without clubbing, cyanosis, or edema. NEURO: Alert & Oriented x4 to person, place, time, situation. Moves all ext x4 Medications and IVs Current Medications Aspirin (Aspirin Chew) 324 mg ONCE ONCE PO Last administered on 07/09/17 23: 48; Start 07/09/17 at 23:45; Stop 07/09/17 at 23:46; Status DC Nitroglycerin (Nitroglycerin 2% Oint) 1 inch ONCE ONCE TOP Last administered on 07/09/17 23:48; Start 07/09/17 at 23:45; Stop 07/09/17 at 23:46; Status DC Sodium Chloride (NS Flush) 2 ml UNSCH PRN IVF FLUSH AFTER USING IV ACCESS; Start 07/09/17 at 23:45; Stop 07/10/17 at 03:04; Status DC Nitroglycerin (Nitrostat Sl) 0.4 mg ONCE ONCE SL Last administered on 23:48; Start 07/09/17 at 23:45; Stop 07/09/17 at 23:46; Status DC Potassium Bicarb/ Potassium Chloride (K-Lyte Cl Eff) 50 meq ONCE ONCE PO Last administered on 07/10/17 01:15; Start 07/10/17 at 01:00; Stop 07/10/17 at 01:01; Status DC Magnesium Sulfate/ Dextrose 100 ml @ 100 mls/hr ONCE ONCE IV Last administered on 07/10/17 03:05; Start 07/10/17 at 03:00; Stop 07/10/17 at 03 :59; Status DC Dextrose (D50w (Vial) Inj) 50 ml UNSCH PRN IV PUSH HYPOGLYCEMIA-SEE COMMENTS; Start 07/10/17 at 02:45 Glucagon (Glucagon Inj) 1 mg UNSCH PRN OTHER HYPOGLYCEMIA-SEE COMMENTS; Start 07/10/17 at 02:45 Insulin Aspart (NovoLOG SUPPLEMENTAL SCALE) 1 ACHS SLIDING SCALE SQ Last administered on 07/11/17 16:48; Start 07/10/17 at 08:00 Sodium Chloride (NS Flush) 2 ml UNSCH PRN IV FLUSH FLUSH AFTER USING IV ACCESS ; Start 07/10/17 at 02:45 Sodium Chloride (NS Flush) 2 ml BID IV FLUSH Last administered on 07/11/17 22 :25; Start 07/10/17 at 09:00 Ondansetron HCl (Zofran Inj) 4 mg Q6H PRN IVP NAUSEA OR VOMITING; Start at 02:45 Acetaminophen (Tylenol) 650 mg Q6H PRN PO FEVER/PAIN SCALE 1 TO 2; Start 07/10 at 02:45 Acetaminophen/ Hydrocodone Bitart ([place] 5-325 Mg) 1 tab Q4H PRN PO PAIN SCALE 3 TO 5 Last administered on 07/11/17 16:48; Start 07/10/17 at 02:45 Morphine Sulfate (Morphine Inj) 2 mg Q3H PRN IV PUSH Pain 6-10 Last administered on 07/11/17 16:48; Start 07/10/17 at 02:45 Senna/Docusate Sodium (Sarita-Colace) 1 tab BID PO Last administered on 22:25; Start 07/10/17 at 09:00 Magnesium Hydroxide (Milk Of Magnesia Liq) 30 ml Q12H PRN PO Mild constipation ; Start 07/10/17 at 02:45 Sennosides (Senokot) 17.2 mg Q12H PRN PO Moderate constipation; Start at 02:45 Bisacodyl (Dulcolax Supp) 10 mg DAILY PRN RECTAL SEVERE CONSITIPATION; Start 07/10/17 at 02:45 Lactulose (Lactulose Liq) 30 ml DAILY PRN PO SEVERE CONSITIPATION; Start 07/10 at 02:45 Allopurinol (Zyloprim) 300 mg DAILY PO Last administered on 07/11/17 09:00; Start 07/10/17 at 09:00 Amlodipine Besylate (Norvasc) 10 mg DAILY PO Last administered on 07/11/17 09 :20; Start 07/10/17 at 09:00; Stop 07/11/17 at 14:46; Status DC Aspirin (Aspirin Chew) 81 mg DAILY CHEW Last administered on 07/11/17 09:20; Start 07/10/17 at 09:00 Atorvastatin Calcium (Lipitor) 40 mg HS PO Last administered on 07/11/17 22: 25; Start 07/10/17 at 21:00 Baclofen (Lioresal) 20 mg TID PO Last administered on 07/11/17 16:48; Start 07/10/17 at 09:00 Furosemide (Lasix) 40 mg BID PO Last administered on 07/10/17 21:52; Start 07/10/17 at 09:00; Status Future Hold Gabapentin (Neurontin) 300 mg TID PO Last administered on 07/11/17 16:48; Start 07/10/17 at 09:00 Levothyroxine Sodium (Synthroid) 75 mcg DAILY@0700 PO Last administered on 05:44; Start 07/10/17 at 07:00 Metoprolol Tartrate (Lopressor) 150 mg BID PO Last administered on 07/10/17 08:02; Start 07/10/17 at 09:00; Status Future Hold Sertraline HCl (Zoloft) 50 mg DAILY PO Last administered on 07/11/17 09:19; Start 07/10/17 at 09:00 Pantoprazole Sodium (Protonix) 40 mg DAILY PO Last administered on 07/11/17 09:20; Start 07/10/17 at 09:00 Nitroglycerin (Nitroglycerin 2% Oint) 0.5 inch Q6HR PRN TOPICAL CHEST PAIN; Start 07/10/17 at 03:00 Miscellaneous (Pill Splitter) 1 ea UNSCH PRN OTHER SEE LABEL COMMENTS; Start 07/10/17 at 03:15 Ceftriaxone Sodium 1000 mg/ Sodium Chloride 100 ml @ 200 mls/hr Q24H IV Last administered on 07/12/17 03:16; Start 07/10/17 at 04:00 Potassium Chloride (KCl) 40 meq ONCE ONCE PO Last administered on 07/10/17 11:43; Start 07/10/17 at 12:00; Stop 07/10/17 at 12:01; Status DC Potassium Chloride (KCl) 40 meq ONCE ONCE PO Last administered on 07/10/17 15:12; Start 07/10/17 at 15:00; Stop 07/10/17 at 15:01; Status DC Potassium Chloride 100 ml @ 50 mls/hr ONCE ONCE IV Last administered on 07/10 11:43; Start 07/10/17 at 12:00; Stop 07/10/17 at 13:59; Status DC Sodium Chloride 1,000 ml @ 50 mls/hr Q20H IV Last administered on 07/10/17 23:00; Start 07/10/17 at 23:00; Stop 07/11/17 at 08:00; Status DC Magnesium Sulfate/ Dextrose 100 ml @ 200 mls/hr NOW ONCE IV Last administered on 07/10/17 21:50; Start 07/10/17 at 19:15; Stop 07/10/17 at 19 :44; Status DC Potassium Chloride (KCl) 40 meq NOW ONCE PO Last administered on 07/10/17 21 :51; Start 07/10/17 at 19:15; Stop 07/10/17 at 19:16; Status DC Potassium Chloride (KCl) 40 meq Q4H PO Last administered on 07/11/17 04:16; Start 07/10/17 at 23:00; Stop 07/11/17 at 03:01; Status DC Potassium Chloride (KCl) 40 meq ONCE ONCE PO Last administered on 07/11/17 09:19; Start 07/11/17 at 08:45; Stop 07/11/17 at 08:46; Status DC Potassium Chloride (KCl) 40 meq ONCE ONCE PO Last administered on 07/11/17 12:00; Start 07/11/17 at 12:30; Stop 07/11/17 at 12:31; Status DC Potassium Chloride 100 ml @ 50 mls/hr BOLUS ONCE IV Last administered on 09:00; Start 07/11/17 at 09:00; Stop 07/11/17 at 10:59; Status DC Magnesium Sulfate/ Dextrose 100 ml @ 100 mls/hr ONCE ONCE IV Last administered on 07/11/17 09:18; Start 07/11/17 at 09:00; Stop 07/11/17 at 09 :59; Status DC Enoxaparin Sodium (Lovenox Inj) 40 mg Q24H SQ Last administered on 07/11/17 09:22; Start 07/11/17 at 09:00 Sodium Chloride 500 ml @ 40 mls/hr [id number] ONCE IV Last administered on 23:50; Start 07/11/17 at 23:00; Stop 07/12/17 at 11:29 Metoprolol Tartrate (Lopressor) 150 mg ONCE ONCE PO Last administered on 07/11 09:20; Start 07/11/17 at 09:00; Stop 07/11/17 at 09:01; Status DC Metoprolol Tartrate (Lopressor) 12.5 mg Q12HR PO Last administered on 22:25; Start 07/11/17 at 21:00 Amlodipine Besylate (Norvasc) 2.5 mg DAILY PO ; Start 07/12/17 at 09:00 A/P Problem List: (1) Chest pain ICD Code: R07.9 - Chest pain, unspecified (2) Hypokalemia ICD Code: E87.6 - Hypokalemia (3) Hypomagnesemia ICD Code: E83.42 - Hypomagnesemia (4) Dehydration ICD Code: E86.0 - Dehydration (5) HTN (hypertension) ICD Code: I10 - Essential (primary) hypertension (6) UTI (urinary tract infection) ICD Code: N39.0 - Urinary tract infection, site not specified (7) DM (diabetes mellitus) ICD Code: E11.9 - Type 2 diabetes mellitus without complications Assessment and Plan A/p 1. Chest / epigastric Pain: h/o CAD s/p Cardiac Stent approx 4yrs ago, now w/ chest pain x2-3 days. Initial trops negative. resumed home ASA, Statin. NTG/Morphine prn, cardiology consult appreciated; GI consulted for endoscopy. 2. Hypokalemia:replaced. 3. Hypomagnesemia: replaced. 4. Dehydration: received IVF. 5. abnormal UA; UC with mixed bacteria- will stop antibiotic. 6. DM: Sliding scale w/ Accu-Cheks, hold Metformin for now. 7. DVT Prophylaxis: lovenox ( on hold for now). Discharge Planning pending GI w/u and cardiology/ GI recommendations. Leatha Tom MD Jul 12, 2017 08:14
[2017-07-12] MEDS ORDERED: amLODIPine BESYLATE 5 MG TAB PO SCH (09:00)
[2017-07-12] MEDS: SODIUM CHLORIDE 0.9% FLUSH 10 ML FLUSH IV FLUSH SCH ×2 (09:00→20:16)
[2017-07-12] MEDS: METOPROLOL TARTRATE 25 MG TAB PO SCH (09:02)
[2017-07-12] MEDS: DOCUSATE SODIUM 50 MG/SENNA 8.6 MG TAB PO SCH ×2 (09:02→20:16)
[2017-07-12] MEDS: SERTRALINE HCL 50 MG TAB PO SCH (09:02)
[2017-07-12] MEDS: PANTOPRAZOLE SOD 40 MG DELAYED RELEASE TAB PO SCH (09:02)
[2017-07-12] MEDS: BACLOFEN 20 MG TAB PO SCH ×3 (09:02→17:28)
[2017-07-12] MEDS: ALLOPURINOL 300 MG TAB PO SCH (09:02)
[2017-07-12] MEDS: GABAPENTIN 300 MG CAP PO SCH ×3 (09:02→17:27)
[2017-07-12] MEDS: ASPIRIN 81 MG CHEW TAB CHEW SCH (09:02)
--- NOTE | 2017-07-12 10:17 | PD.CARD.PN ---
Subjective Subjective Remarks still has same LUQ/epigastric pain, constant Objective Medications Current Medications Medications (Trade) Dose Ordered Sig/Andre Route Start Time Stop Time Status Last Admin (D50w (Vial) Inj) 50 ml UNSCH PRN IV PUSH 07/10/17 02:45 (Glucagon Inj) 1 mg UNSCH PRN OTHER 07/10/17 02:45 (NovoLOG SUPPLEMENTAL SCALE) 1 ACHS SLIDING SCALE SQ 07/10/17 08:00 07/11/17 16:48 (NS Flush) 2 ml UNSCH PRN IV FLUSH 07/10/17 02:45 (NS Flush) 2 ml BID IV FLUSH 07/10/17 09:00 07/12/17 09:00 (Zofran Inj) 4 mg Q6H PRN IVP 07/10/17 02:45 (Tylenol) 650 mg Q6H PRN PO 07/10/17 02:45 ([place] 5-325 Mg) 1 tab Q4H PRN PO 07/10/17 02:45 07/11/17 16:48 (Morphine Inj) 2 mg Q3H PRN IV PUSH 07/10/17 02:45 07/11/17 16:48 (Sarita-Colace) 1 tab BID PO 07/10/17 09:00 07/12/17 09:02 (Milk Of Magnesia Liq) 30 ml Q12H PRN PO 07/10/17 02:45 (Senokot) 17.2 mg Q12H PRN PO 07/10/17 02:45 (Dulcolax Supp) 10 mg DAILY PRN RECTAL 07/10/17 02:45 (Lactulose Liq) 30 ml DAILY PRN PO 07/10/17 02:45 (Zyloprim) 300 mg DAILY PO 07/10/17 09:00 07/12/17 09:02 (Aspirin Chew) 81 mg DAILY CHEW 07/10/17 09:00 07/12/17 09:02 (Lipitor) 40 mg HS PO 07/10/17 21:00 07/11/17 22:25 (Lioresal) 20 mg TID PO 07/10/17 09:00 07/12/17 09:02 (Lasix) 40 mg BID PO 07/10/17 09:00 Future Hold 07/10/17 21:52 (Neurontin) 300 mg TID PO 07/10/17 09:00 07/12/17 09:02 (Synthroid) 75 mcg DAILY@0700 PO 07/10/17 07:00 07/12/17 05:44 (Lopressor) 150 mg BID PO 07/10/17 09:00 Future Hold 07/10/17 08:02 (Zoloft) 50 mg DAILY PO 07/10/17 09:00 07/12/17 09:02 (Protonix) 40 mg DAILY PO 07/10/17 09:00 07/12/17 09:02 (Nitroglycerin 2% Oint) 0.5 inch Q6HR PRN TOPICAL 07/10/17 03:00 (Pill Splitter) 1 ea UNSCH PRN OTHER 07/10/17 03:15 Ceftriaxone Sodium 1000 mg/ Sodium Chloride 100 ml @ 200 mls/hr Q24H IV 07/10/17 04:00 07/12/17 03:16 (Lovenox Inj) 40 mg Q24H SQ 07/11/17 09:00 Future Hold 07/11/17 09:22 Sodium Chloride 500 ml @ 40 mls/hr [id number] ONCE IV 07/11/17 23:00 07/12/17 11:29 07/11/17 23:50 (Norvasc) 5 mg DAILY PO 07/13/17 09:00 UNV (Lopressor) 50 mg Q12HR PO 07/12/17 21:00 UNV (Norvasc) 2.5 mg ONCE ONCE PO 07/12/17 10:15 07/12/17 10:16 UNV Vital Signs / I&O Vital Signs Date Time Temp Pulse Resp B/P (MAP) Pulse Ox O2 Delivery O2 Flow Rate FiO2 07/12/17 10:00 88 07/12/17 09:00 92 07/12/17 08:00 98.4 92 16 155/82 (106) 91 07/12/17 08:00 85 07/12/17 04:15 98.6 72 16 162/90 (114) 93 07/12/17 04:00 92 07/12/17 02:00 72 07/12/17 01:00 78 07/12/17 00:00 74 07/11/17 23:25 98.6 78 16 133/73 (93) 92 07/11/17 23:00 82 07/11/17 22:00 78 07/11/17 21:00 80 07/11/17 20:00 86 07/11/17 20:00 98.8 89 16 120/67 (84) 90 07/11/17 19:00 88 07/11/17 18:00 86 07/11/17 17:31 20 07/11/17 17:00 86 07/11/17 16:55 16 07/11/17 16:00 98.2 72 16 126/70 (88) 93 07/11/17 16:00 77 07/11/17 15:00 76 07/11/17 14:00 78 07/11/17 13:00 80 07/11/17 12:00 98.1 81 18 128/74 (92) 94 07/11/17 12:00 75 07/11/17 11:00 74 I/O 07/11/17 07/11/17 07/11/17 07/12/17 07/12/17 07/12/17 07:00 15:00 23:00 07:00 15:00 23:00 Intake Total 720 ml 1760 ml 1225 ml Output Total 240 ml 350 ml Balance 480 ml 1760 ml 875 ml Intake Oral 720 ml 620 ml 680 ml IV Total 1140 ml 545 ml Output Urine Total 240 ml 350 ml # Voids 1 4 # Bowel Movements 0 0 Physical Exam Alert [place] Clear CV S1S2 RRR Abd - mild epigastric/LUQ tenderness No edema Laboratory Laboratory Tests Test 07/11/17 16:28 07/12/17 05:40 Potassium Level 4.0 MEQ/L 3.8 MEQ/L Magnesium Level 1.8 MG/DL White Blood Count 10.0 TH/MM3 Red Blood Count 3.36 MIL/MM3 Hemoglobin 9.5 GM/DL Hematocrit 28.6 % Mean Corpuscular Volume 85.2 FL Mean Corpuscular Hemoglobin 28.3 PG Mean Corpuscular Hemoglobin Concent 33.2 % Red Cell Distribution Width 15.2 % Platelet Count 359 TH/MM3 Mean Platelet Volume 7.3 FL Blood Urea Nitrogen 12 MG/DL Creatinine 0.66 MG/DL Random Glucose 128 MG/DL Total Protein 7.3 GM/DL Albumin 2.7 GM/DL Calcium Level 8.3 MG/DL Alkaline Phosphatase 149 U/L Aspartate Amino Transf (AST/SGOT) 8 U/L Alanine Aminotransferase (ALT/SGPT) 6 U/L Total Bilirubin 0.3 MG/DL Sodium Level 138 MEQ/L Chloride Level 99 MEQ/L Carbon Dioxide Level 30.3 MEQ/L Anion Gap 9 MEQ/L Estimat Glomerular Filtration Rate 88 ML/MIN Troponin I LESS THAN 0.02 NG/ML Assessment and Plan Problem List: (1) HTN (hypertension) ICD Codes: I10 - Essential (primary) hypertension (2) Chest pain ICD Codes: R07.9 - Chest pain, unspecified Assessment and Plan await Emiliano Callaway MD Jul 12, 2017 10:17
[2017-07-12] MEDS ORDERED: METOPROLOL TARTRATE 25 MG TAB PO ONE (11:00)
[2017-07-12] MEDS ORDERED: amLODIPine BESYLATE 5 MG TAB PO ONE (11:00)
[2017-07-12] MEDS ORDERED: ATROPINE SULFATE 1 MG/10 ML SYRINGE ONE (11:28)
[2017-07-12] MEDS ORDERED: LIDOCAINE HCL 2% 100 MG/5 ML SYRINGE ONE (11:29)
[2017-07-12] MEDS ORDERED: EPINEPHrine HCL (1:10,000) 1 MG/10 ML SYRINGE ONE (11:29)
[2017-07-12] MEDS ORDERED: ROCURONIUM INJ 50 MG/5 ML SYRINGE IV PUSH ONE (12:00)
[2017-07-12] MEDS ORDERED: PROPOFOL 200 MG/20 ML AMP IV ONE (12:00)
[2017-07-12] MEDS ORDERED: LIDOCAINE HCL 1% PF 5 ML AMPULE OTHER ONE (12:00)
--- NOTE | 2017-07-12 14:23 | EKG ---
Date Performed: 07/11/2017 Time Performed: 12:15:44 PTAGE: 72 years EKG: NORMAL Sinus rhythm Abnormal ECG PREVIOUS TRACING : 07/09/2017 23.14 DOCTOR: Brad Osullivan Interpretating Date/Time 07/12/2017 14:17:53
--- NOTE | 2017-07-12 15:58 | PD.PROCEDR ---
GI Procedure REFERRING PHYSICIAN Dr. Hernandes PROCEDURE PERFORMED EGD with biopsy INDICATION FOR PROCEDURE Anemia, chest pain PROCEDURE: The procedure, risks and benefits were discussed with Ms. Gomez and informed consent was obtained. Anesthesia sedated her with Diprivan. She was placed in the left lateral decubitus position. EGD: The Pentax videoscope was introduced through the oropharynx and advanced to the second portion of the duodenum under direct visualization. Retroflexion was performed in the stomach. FINDINGS: Esophagus this was unremarkable and within normal limits except for the Z line was slightly irregular possibly representing Cody's esophagus this was biopsied for confirmation Stomach this was unremarkable within normal limits Duodenum this too was unremarkable and within normal limits ESTIMATED BLOOD LOSS: None SPECIMENS REMOVED: Biopsy from the GE junction COMPLICATIONS: None IMPRESSION: Irregular Z line Otherwise normal EGD PLAN: Await biopsy Continue PPI No contraindication to antiplatelet or anticoagulation use at this point We will follow-up with the patient regarding the pathology but for now we will sign off Chico Reynolds MD Jul 12, 2017 15:58
[2017-07-12] MEDS: ACETAMINOPHEN/HYDROcodone 325 MG/5 MG TAB PO PRN ×2 (18:26→23:11)
[2017-07-12] MEDS: METOPROLOL TARTRATE 50 MG TAB PO SCH (20:15)
[2017-07-12] MEDS: ATORVASTATIN 40 MG TAB PO SCH (20:16)
[2017-07-13] VITALS (24 sets, daily range): BP systolic 131–169; BP diastolic 69–88; PULSE 68–92; RESP 16–18; TEMP 97.4–99.5; O2SAT 93–98
[2017-07-13] MEDS: cefTRIAXone INJ 1,000 MG in SODIUM CHLORIDE 0.9% INJ 100 ML IV SCH (04:32)
[2017-07-13] MEDS: ACETAMINOPHEN/HYDROcodone 325 MG/5 MG TAB PO PRN ×3 (04:32→20:53)
[2017-07-13] MEDS: LEVOTHYROXINE SODIUM 75 MCG TAB PO SCH (04:32)
[2017-07-13 07:00] LABS: HEMATOCRIT 28.3 % (35.0-46.0); MEAN CELL VOLUME 84.8 FL (80.0-100.0); MEAN CORPUSCULAR HEMOGLOBIN 28.1 PG (27.0-34.0); MEAN CORPUSCULAR HGB CONC 33.1 % (32.0-36.0); PLATELET COUNT 370 TH/MM3 (150-450); RED BLOOD COUNT 3.33 MIL/MM3 (4.00-5.30); RED CELL DISTRIBUTION WIDTH 15.1 % (11.6-17.2); REVIEW FLAG FINAL; WHITE BLOOD COUNT 12.8 TH/MM3 (4.0-11.0)
--- NOTE | 2017-07-13 07:48 | HHI.PR ---
Subjective Remarks in no acute distress. has minimal chest/epigastric pain. no other complaints. Objective Vitals Vital Signs Date Time Temp Pulse Resp B/P (MAP) Pulse Ox O2 Delivery O2 Flow Rate FiO2 07/13/17 07:00 88 07/13/17 07:00 97.4 89 18 163/88 (113) 95 07/13/17 06:00 74 07/13/17 05:00 76 07/13/17 04:00 84 07/13/17 04:00 99.5 82 16 169/81 (110) 93 07/13/17 03:00 68 07/13/17 02:00 72 07/13/17 01:00 74 07/13/17 00:00 98.1 85 18 137/69 (91) 94 07/13/17 00:00 82 07/12/17 23:00 84 07/12/17 22:00 90 07/12/17 21:00 96 07/12/17 20:00 106 07/12/17 20:00 99.5 102 18 155/72 (99) 94 07/12/17 18:05 101 07/12/17 17:38 107 07/12/17 16:04 97.3 94 18 131/89 (103) 94 Room Air 07/12/17 15:11 100 07/12/17 15:11 99.2 100 16 159/82 (107) 92 07/12/17 14:00 87 07/12/17 13:12 92 07/12/17 12:09 81 07/12/17 11:00 85 07/12/17 11:00 99.4 91 16 153/76 (101) 91 07/12/17 10:00 88 07/12/17 09:00 92 07/12/17 08:00 98.4 92 16 155/82 (106) 91 07/12/17 08:00 85 I/O 07/12/17 07/12/17 07/12/17 07/13/17 07/13/17 07/13/17 07:00 15:00 23:00 07:00 15:00 23:00 Intake Total 1225 ml 530 ml 960 ml Output Total 350 ml 650 ml 550 ml Balance 875 ml -120 ml 410 ml Intake Oral 680 ml 480 ml 960 ml IV Total 545 ml Other 50 ml Output Urine Total 350 ml 650 ml 550 ml # Voids 1 # Bowel Movements 0 0 1 Result Diagram: 07/13/17 0540 07/12/17 0540 Imaging Last Impressions Chest X-Ray 07/09/17 5358 Signed Impressions: Service Date/Time: Sunday, July 09, 2017 23:44 - CONCLUSION: 1. No acute cardiopulmonary disease. Lj Vasquez MD Objective Remarks GENERAL: This is a well-nourished, well-developed patient, in no apparent distress. CARDIOVASCULAR: Regular rate and regular rhythm without murmurs, gallops, or rubs. RESPIRATORY: Clear to auscultation. Breath sounds equal bilaterally. No wheezes , rales, or rhonchi. chest is tender to touch. GASTROINTESTINAL: Abdomen soft, non-tender, nondistended. Normal, active bowel sounds MUSCULOSKELETAL: Extremities without clubbing, cyanosis, or edema. NEURO: Alert & Oriented x4 to person, place, time, situation. Moves all ext x4 Procedures EGD Medications and IVs Current Medications Aspirin (Aspirin Chew) 324 mg ONCE ONCE PO Last administered on 07/09/17 23: 48; Start 07/09/17 at 23:45; Stop 07/09/17 at 23:46; Status DC Nitroglycerin (Nitroglycerin 2% Oint) 1 inch ONCE ONCE TOP Last administered on 07/09/17 23:48; Start 07/09/17 at 23:45; Stop 07/09/17 at 23:46; Status DC Sodium Chloride (NS Flush) 2 ml UNSCH PRN IVF FLUSH AFTER USING IV ACCESS; Start 07/09/17 at 23:45; Stop 07/10/17 at 03:04; Status DC Nitroglycerin (Nitrostat Sl) 0.4 mg ONCE ONCE SL Last administered on 23:48; Start 07/09/17 at 23:45; Stop 07/09/17 at 23:46; Status DC Potassium Bicarb/ Potassium Chloride (K-[place] Cl Eff) 50 meq ONCE ONCE PO Last administered on 07/10/17 01:15; Start 07/10/17 at 01:00; Stop 07/10/17 at 01:01; Status DC Magnesium Sulfate/ Dextrose 100 ml @ 100 mls/hr ONCE ONCE IV Last administered on 07/10/17 03:05; Start 07/10/17 at 03:00; Stop 07/10/17 at 03 :59; Status DC Dextrose (D50w (Vial) Inj) 50 ml UNSCH PRN IV PUSH HYPOGLYCEMIA-SEE COMMENTS; Start 07/10/17 at 02:45 Glucagon (Glucagon Inj) 1 mg UNSCH PRN OTHER HYPOGLYCEMIA-SEE COMMENTS; Start 07/10/17 at 02:45 Insulin Aspart (NovoLOG SUPPLEMENTAL SCALE) 1 ACHS SLIDING SCALE SQ Last administered on 07/12/17 20:16; Start 07/10/17 at 08:00 Sodium Chloride (NS Flush) 2 ml UNSCH PRN IV FLUSH FLUSH AFTER USING IV ACCESS ; Start 07/10/17 at 02:45 Sodium Chloride (NS Flush) 2 ml BID IV FLUSH Last administered on 07/12/17 20 :16; Start 07/10/17 at 09:00 Ondansetron HCl (Zofran Inj) 4 mg Q6H PRN IVP NAUSEA OR VOMITING; Start at 02:45 Acetaminophen (Tylenol) 650 mg Q6H PRN PO FEVER/PAIN SCALE 1 TO 2; Start 07/10 at 02:45 Acetaminophen/ Hydrocodone Bitart ([place] 5-325 Mg) 1 tab Q4H PRN PO PAIN SCALE 3 TO 5 Last administered on 07/13/17 04:32; Start 07/10/17 at 02:45 Morphine Sulfate (Morphine Inj) 2 mg Q3H PRN IV PUSH Pain 6-10 Last administered on 07/11/17 16:48; Start 07/10/17 at 02:45 Senna/Docusate Sodium (Sarita-Colace) 1 tab BID PO Last administered on 20:16; Start 07/10/17 at 09:00 Magnesium Hydroxide (Milk Of Magnesia Liq) 30 ml Q12H PRN PO Mild constipation ; Start 07/10/17 at 02:45 Sennosides (Senokot) 17.2 mg Q12H PRN PO Moderate constipation; Start at 02:45 Bisacodyl (Dulcolax Supp) 10 mg DAILY PRN RECTAL SEVERE CONSITIPATION Last administered on 07/12/17 21:53; Start 07/10/17 at 02:45 Lactulose (Lactulose Liq) 30 ml DAILY PRN PO SEVERE CONSITIPATION; Start 07/10 at 02:45 Allopurinol (Zyloprim) 300 mg DAILY PO Last administered on 07/12/17 09:02; Start 07/10/17 at 09:00 Amlodipine Besylate (Norvasc) 10 mg DAILY PO Last administered on 07/11/17 09 :20; Start 07/10/17 at 09:00; Stop 07/11/17 at 14:46; Status DC Aspirin (Aspirin Chew) 81 mg DAILY CHEW Last administered on 07/12/17 09:02; Start 07/10/17 at 09:00 Atorvastatin Calcium (Lipitor) 40 mg HS PO Last administered on 07/12/17 20: 16; Start 07/10/17 at 21:00 Baclofen (Lioresal) 20 mg TID PO Last administered on 07/12/17 17:28; Start 07/10/17 at 09:00 Furosemide (Lasix) 40 mg BID PO Last administered on 07/10/17 21:52; Start 07/10/17 at 09:00; Status Future Hold Gabapentin (Neurontin) 300 mg TID PO Last administered on 07/12/17 17:27; Start 07/10/17 at 09:00 Levothyroxine Sodium (Synthroid) 75 mcg DAILY@0700 PO Last administered on 04:32; Start 07/10/17 at 07:00 Metoprolol Tartrate (Lopressor) 150 mg BID PO Last administered on 07/10/17 08:02; Start 07/10/17 at 09:00; Stop 07/12/17 at 10:47; Status DC Sertraline HCl (Zoloft) 50 mg DAILY PO Last administered on 07/12/17 09:02; Start 07/10/17 at 09:00 Pantoprazole Sodium (Protonix) 40 mg DAILY PO Last administered on 07/12/17 09:02; Start 07/10/17 at 09:00 Nitroglycerin (Nitroglycerin 2% Oint) 0.5 inch Q6HR PRN TOPICAL CHEST PAIN; Start 07/10/17 at 03:00 Miscellaneous (Pill Splitter) 1 ea UNSCH PRN OTHER SEE LABEL COMMENTS; Start 07/10/17 at 03:15 Ceftriaxone Sodium 1000 mg/ Sodium Chloride 100 ml @ 200 mls/hr Q24H IV Last administered on 07/13/17 04:32; Start 07/10/17 at 04:00 Potassium Chloride (KCl) 40 meq ONCE ONCE PO Last administered on 07/10/17 11:43; Start 07/10/17 at 12:00; Stop 07/10/17 at 12:01; Status DC Potassium Chloride (KCl) 40 meq ONCE ONCE PO Last administered on 07/10/17 15:12; Start 07/10/17 at 15:00; Stop 07/10/17 at 15:01; Status DC Potassium Chloride 100 ml @ 50 mls/hr ONCE ONCE IV Last administered on 07/10 11:43; Start 07/10/17 at 12:00; Stop 07/10/17 at 13:59; Status DC Sodium Chloride 1,000 ml @ 50 mls/hr Q20H IV Last administered on 07/10/17 23:00; Start 07/10/17 at 23:00; Stop 07/11/17 at 08:00; Status DC Magnesium Sulfate/ Dextrose 100 ml @ 200 mls/hr NOW ONCE IV Last administered on 07/10/17 21:50; Start 07/10/17 at 19:15; Stop 07/10/17 at 19 :44; Status DC Potassium Chloride (KCl) 40 meq NOW ONCE PO Last administered on 07/10/17 21 :51; Start 07/10/17 at 19:15; Stop 07/10/17 at 19:16; Status DC Potassium Chloride (KCl) 40 meq Q4H PO Last administered on 07/11/17 04:16; Start 07/10/17 at 23:00; Stop 07/11/17 at 03:01; Status DC Potassium Chloride (KCl) 40 meq ONCE ONCE PO Last administered on 07/11/17 09:19; Start 07/11/17 at 08:45; Stop 07/11/17 at 08:46; Status DC Potassium Chloride (KCl) 40 meq ONCE ONCE PO Last administered on 07/11/17 12:00; Start 07/11/17 at 12:30; Stop 07/11/17 at 12:31; Status DC Potassium Chloride 100 ml @ 50 mls/hr BOLUS ONCE IV Last administered on 09:00; Start 07/11/17 at 09:00; Stop 07/11/17 at 10:59; Status DC Magnesium Sulfate/ Dextrose 100 ml @ 100 mls/hr ONCE ONCE IV Last administered on 07/11/17 09:18; Start 07/11/17 at 09:00; Stop 07/11/17 at 09 :59; Status DC Enoxaparin Sodium (Lovenox Inj) 40 mg Q24H SQ Last administered on 07/11/17 09:22; Start 07/11/17 at 09:00; Status Future Hold Sodium Chloride 500 ml @ 40 mls/hr [id number] ONCE IV Last administered on 23:50; Start 07/11/17 at 23:00; Stop 07/12/17 at 11:29; Status DC Metoprolol Tartrate (Lopressor) 150 mg ONCE ONCE PO Last administered on 07/11 09:20; Start 07/11/17 at 09:00; Stop 07/11/17 at 09:01; Status DC Metoprolol Tartrate (Lopressor) 12.5 mg Q12HR PO Last administered on 09:02; Start 07/11/17 at 21:00; Stop 07/12/17 at 10:15; Status DC Amlodipine Besylate (Norvasc) 2.5 mg DAILY PO Last administered on 07/12/17 09:02; Start 07/12/17 at 09:00; Stop 07/12/17 at 10:14; Status DC Amlodipine Besylate (Norvasc) 5 mg DAILY PO ; Start 07/13/17 at 09:00 Metoprolol Tartrate (Lopressor) 50 mg Q12HR PO Last administered on 07/12/17 20:15; Start 07/12/17 at 21:00 Amlodipine Besylate (Norvasc) 2.5 mg ONCE ONCE PO Last administered on 10:50; Start 07/12/17 at 11:00; Stop 07/12/17 at 11:01; Status DC Metoprolol Tartrate (Lopressor) 25 mg ONCE ONCE PO Last administered on 10:50; Start 07/12/17 at 11:00; Stop 07/12/17 at 11:01; Status DC Atropine Sulfate (Atropine Inj) 1 mg STK-MED ONCE .ROUTE ; Start 07/12/17 at 11 :28; Stop 07/12/17 at 11:29; Status DC Lidocaine HCl (Xylocaine 2% Inj) 100 mg STK-MED ONCE .ROUTE ; Start 07/12/17 at 11:29; Stop 07/12/17 at 11:30; Status DC Epinephrine HCl (EPINEPHrine (1:10,000) INJ) 1 mg STK-MED ONCE .ROUTE ; Start 07/12/17 at 11:29; Stop 07/12/17 at 11:30; Status DC A/P Problem List: (1) Chest pain ICD Code: R07.9 - Chest pain, unspecified (2) Hypokalemia ICD Code: E87.6 - Hypokalemia (3) Hypomagnesemia ICD Code: E83.42 - Hypomagnesemia (4) Dehydration ICD Code: E86.0 - Dehydration (5) HTN (hypertension) ICD Code: I10 - Essential (primary) hypertension (6) UTI (urinary tract infection) ICD Code: N39.0 - Urinary tract infection, site not specified (7) DM (diabetes mellitus) ICD Code: E11.9 - Type 2 diabetes mellitus without complications Assessment and Plan A/P 1. Chest / epigastric Pain: h/o CAD s/p Cardiac Stent approx 4yrs ago, now w/ chest pain x2-3 days. Initial trops negative. resumed home ASA, Statin. NTG/Morphine prn. s/p EGD with irregular Z line-otherwise normal- continue PPI- biopsy to be followed up- GI signed off. cardiology following. 2. Hypokalemia:replaced. 3. Hypomagnesemia: replaced. 4. Dehydration: received IVF. 5. abnormal UA; UC with mixed bacteria- stop antibiotic. 6. DM: Sliding scale w/ Accu-Cheks, hold Metformin for now. 7. DVT Prophylaxis: lovenox ( on hold for now). Discharge Planning pending cardiology recommendations. Leatha Tom MD Jul 13, 2017 07:48
[2017-07-13] MEDS ORDERED: FURO40TA PO (07:51)
[2017-07-13] MEDS ORDERED: POTA10CA PO (07:51)
[2017-07-13] MEDS ORDERED: METO-309 PO (07:52)
[2017-07-13] MEDS: DOCUSATE SODIUM 50 MG/SENNA 8.6 MG TAB PO SCH ×2 (08:45→20:52)
[2017-07-13] MEDS: amLODIPine BESYLATE 5 MG TAB PO SCH (08:45)
[2017-07-13] MEDS: ALLOPURINOL 300 MG TAB PO SCH (08:45)
[2017-07-13] MEDS: ASPIRIN 81 MG CHEW TAB CHEW SCH (08:45)
[2017-07-13] MEDS: PANTOPRAZOLE SOD 40 MG DELAYED RELEASE TAB PO SCH (08:46)
[2017-07-13] MEDS: BACLOFEN 20 MG TAB PO SCH ×3 (08:46→17:12)
[2017-07-13] MEDS: GABAPENTIN 300 MG CAP PO SCH ×3 (08:46→17:12)
[2017-07-13] MEDS: INSULIN ASPART SUPPLEMENTAL SCALE SQ SCH ×5 (08:46→20:56)
[2017-07-13] MEDS: METOPROLOL TARTRATE 50 MG TAB PO SCH ×2 (08:46→20:52)
[2017-07-13] MEDS: SODIUM CHLORIDE 0.9% FLUSH 10 ML FLUSH IV FLUSH SCH ×2 (08:48→20:51)
[2017-07-13] MEDS: SERTRALINE HCL 50 MG TAB PO SCH (08:50)
--- NOTE | 2017-07-13 09:10 | PD.CARD.PN ---
Subjective Subjective Remarks [place] continues, atypical Objective Medications Current Medications Medications (Trade) Dose Ordered Sig/Andre Route Start Time Stop Time Status Last Admin (D50w (Vial) Inj) 50 ml UNSCH PRN IV PUSH 07/10/17 02:45 (Glucagon Inj) 1 mg UNSCH PRN OTHER 07/10/17 02:45 (NovoLOG SUPPLEMENTAL SCALE) 1 ACHS SLIDING SCALE SQ 07/10/17 08:00 07/13/17 08:46 (NS Flush) 2 ml UNSCH PRN IV FLUSH 07/10/17 02:45 (NS Flush) 2 ml BID IV FLUSH 07/10/17 09:00 07/13/17 08:48 (Zofran Inj) 4 mg Q6H PRN IVP 07/10/17 02:45 (Tylenol) 650 mg Q6H PRN PO 07/10/17 02:45 ([place] 5-325 Mg) 1 tab Q4H PRN PO 07/10/17 02:45 07/13/17 04:32 (Morphine Inj) 2 mg Q3H PRN IV PUSH 07/10/17 02:45 07/11/17 16:48 (Sarita-Colace) 1 tab BID PO 07/10/17 09:00 07/13/17 08:45 (Milk Of Magnesia Liq) 30 ml Q12H PRN PO 07/10/17 02:45 (Senokot) 17.2 mg Q12H PRN PO 07/10/17 02:45 (Dulcolax Supp) 10 mg DAILY PRN RECTAL 07/10/17 02:45 07/12/17 21:53 (Lactulose Liq) 30 ml DAILY PRN PO 07/10/17 02:45 (Zyloprim) 300 mg DAILY PO 07/10/17 09:00 07/13/17 08:45 (Aspirin Chew) 81 mg DAILY CHEW 07/10/17 09:00 07/13/17 08:45 (Lipitor) 40 mg HS PO 07/10/17 21:00 07/12/17 20:16 (Lioresal) 20 mg TID PO 07/10/17 09:00 07/13/17 08:46 (Lasix) 40 mg BID PO 07/10/17 09:00 Future Hold 07/10/17 21:52 (Neurontin) 300 mg TID PO 07/10/17 09:00 07/13/17 08:46 (Synthroid) 75 mcg DAILY@0700 PO 07/10/17 07:00 07/13/17 04:32 (Zoloft) 50 mg DAILY PO 07/10/17 09:00 07/13/17 08:50 (Protonix) 40 mg DAILY PO 07/10/17 09:00 07/13/17 08:46 (Nitroglycerin 2% Oint) 0.5 inch Q6HR PRN TOPICAL 07/10/17 03:00 (Pill Splitter) 1 ea UNSCH PRN OTHER 07/10/17 03:15 (Lovenox Inj) 40 mg Q24H SQ 07/11/17 09:00 Future Hold 07/11/17 09:22 (Norvasc) 5 mg DAILY PO 07/13/17 09:00 07/13/17 08:45 (Lopressor) 50 mg Q12HR PO 07/12/17 21:00 07/13/17 08:46 Vital Signs / I&O Vital Signs Date Time Temp Pulse Resp B/P (MAP) Pulse Ox O2 Delivery O2 Flow Rate FiO2 07/13/17 08:00 88 07/13/17 07:00 88 07/13/17 07:00 97.4 89 18 163/88 (113) 95 07/13/17 06:00 74 07/13/17 05:00 76 07/13/17 04:00 84 07/13/17 04:00 99.5 82 16 169/81 (110) 93 07/13/17 03:00 68 07/13/17 02:00 72 07/13/17 01:00 74 07/13/17 00:00 98.1 85 18 137/69 (91) 94 07/13/17 00:00 82 07/12/17 23:00 84 07/12/17 22:00 90 07/12/17 21:00 96 07/12/17 20:00 106 07/12/17 20:00 99.5 102 18 155/72 (99) 94 07/12/17 18:05 101 07/12/17 17:38 107 07/12/17 16:04 97.3 94 18 131/89 (103) 94 Room Air 07/12/17 15:11 100 07/12/17 15:11 99.2 100 16 159/82 (107) 92 07/12/17 14:00 87 07/12/17 13:12 92 07/12/17 12:09 81 07/12/17 11:00 85 07/12/17 11:00 99.4 91 16 153/76 (101) 91 07/12/17 10:00 88 I/O 07/12/17 07/12/17 07/12/17 07/13/17 07/13/17 07/13/17 07:00 15:00 23:00 07:00 15:00 23:00 Intake Total 1225 ml 530 ml 960 ml Output Total 350 ml 650 ml 550 ml Balance 875 ml -120 ml 410 ml Intake Oral 680 ml 480 ml 960 ml IV Total 545 ml Other 50 ml Output Urine Total 350 ml 650 ml 550 ml # Voids 1 # Bowel Movements 0 0 1 Physical Exam Alert [place] Clear CV S1S2 RRR Abd - mild epigastric/LUQ tenderness No edema Laboratory Laboratory Tests Test 07/13/17 05:40 White Blood Count 12.8 TH/MM3 Red Blood Count 3.33 MIL/MM3 Hemoglobin 9.4 GM/DL Hematocrit 28.3 % Mean Corpuscular Volume 84.8 FL Mean Corpuscular Hemoglobin 28.1 PG Mean Corpuscular Hemoglobin Concent 33.1 % Red Cell Distribution Width 15.1 % Platelet Count 370 TH/MM3 Mean Platelet Volume 7.4 FL Assessment and Plan Problem List: (1) HTN (hypertension) ICD Codes: I10 - Essential (primary) hypertension (2) Chest pain ICD Codes: R07.9 - Chest pain, unspecified Plan: atypical. Check SPECT (3) Coronary artery disease ICD Codes: I25.10 - Atherosclerotic heart disease of [place] coronary artery without angina pectoris Emiliano Hernandes MD Jul 13, 2017 09:10
[2017-07-13] MEDS ORDERED: LIDOCAINE HCL 2% 100 MG/5 ML SYRINGE ONE (12:12)
[2017-07-13] MEDS ORDERED: ATROPINE SULFATE 1 MG/10 ML SYRINGE ONE (12:12)
[2017-07-13] MEDS ORDERED: EPINEPHrine HCL (1:10,000) 1 MG/10 ML SYRINGE ONE (12:13)
[2017-07-13] MEDS: ATORVASTATIN 40 MG TAB PO SCH (20:52)
[2017-07-14] VITALS (22 sets, daily range): BP systolic 134–161; BP diastolic 60–86; PULSE 68–95; RESP 18–20; TEMP 98–98.8; O2SAT 94–98
[2017-07-14] MEDS: ACETAMINOPHEN/HYDROcodone 325 MG/5 MG TAB PO PRN ×3 (04:09→18:18)
[2017-07-14] MEDS: LEVOTHYROXINE SODIUM 75 MCG TAB PO SCH (06:32)
--- NOTE | 2017-07-14 07:37 | HHI.PR ---
Subjective Remarks resting comfortably with no distress. has mild chest pain. awaiting stress test today. d/w the RN and no acute issues over night. Objective Vitals Vital Signs Date Time Temp Pulse Resp B/P (MAP) Pulse Ox O2 Delivery O2 Flow Rate FiO2 07/14/17 06:00 77 07/14/17 05:00 78 07/14/17 04:00 98.8 82 18 161/83 (109) 94 07/14/17 04:00 80 07/14/17 03:00 72 07/14/17 02:00 70 07/14/17 01:00 68 07/14/17 00:00 98.5 76 18 134/69 (90) 96 07/14/17 00:00 70 07/13/17 23:00 72 07/13/17 22:00 78 07/13/17 21:00 88 07/13/17 20:00 76 07/13/17 20:00 78 07/13/17 20:00 98.8 89 18 169/86 (113) 96 07/13/17 19:00 76 07/13/17 18:00 80 07/13/17 17:00 81 07/13/17 16:00 83 07/13/17 15:32 98.7 82 16 144/83 (103) 98 07/13/17 15:00 92 07/13/17 12:00 74 07/13/17 11:45 98.4 73 16 131/70 (90) 95 07/13/17 11:00 80 07/13/17 10:04 82 07/13/17 09:00 74 07/13/17 08:00 88 I/O 07/13/17 07/13/17 07/13/17 07/14/17 07/14/17 07/14/17 07:00 15:00 23:00 07:00 15:00 23:00 Intake Total 960 ml 720 ml 360 ml Output Total 550 ml 650 ml Balance 410 ml 720 ml -290 ml Intake Oral 960 ml 720 ml 360 ml Output Urine Total 550 ml 650 ml # Voids 3 # Bowel Movements 1 0 Result Diagram: 07/13/17 0540 07/12/17 0540 Imaging Last Impressions Chest X-Ray 07/09/17 0244 Signed Impressions: Service Date/Time: Sunday, July 09, 2017 23:44 - CONCLUSION: 1. No acute cardiopulmonary disease. Lj Vasquez MD Objective Remarks GENERAL: This is a well-nourished, well-developed patient, in no apparent distress. CARDIOVASCULAR: Regular rate and regular rhythm without murmurs, gallops, or rubs. RESPIRATORY: Clear to auscultation. Breath sounds equal bilaterally. No wheezes , rales, or rhonchi. chest is tender to touch. GASTROINTESTINAL: Abdomen soft, non-tender, nondistended. Normal, active bowel sounds MUSCULOSKELETAL: Extremities without clubbing, cyanosis, or edema. NEURO: Alert & Oriented x4 to person, place, time, situation. Moves all ext x4 Procedures EGD Medications and IVs Current Medications Aspirin (Aspirin Chew) 324 mg ONCE ONCE PO Last administered on 07/09/17 23: 48; Start 07/09/17 at 23:45; Stop 07/09/17 at 23:46; Status DC Nitroglycerin (Nitroglycerin 2% Oint) 1 inch ONCE ONCE TOP Last administered on 07/09/17 23:48; Start 07/09/17 at 23:45; Stop 07/09/17 at 23:46; Status DC Sodium Chloride (NS Flush) 2 ml UNSCH PRN IVF FLUSH AFTER USING IV ACCESS; Start 07/09/17 at 23:45; Stop 07/10/17 at 03:04; Status DC Nitroglycerin (Nitrostat Sl) 0.4 mg ONCE ONCE SL Last administered on 23:48; Start 07/09/17 at 23:45; Stop 07/09/17 at 23:46; Status DC Potassium Bicarb/ Potassium Chloride (K-Lyte Cl Eff) 50 meq ONCE ONCE PO Last administered on 07/10/17 01:15; Start 07/10/17 at 01:00; Stop 07/10/17 at 01:01; Status DC Magnesium Sulfate/ Dextrose 100 ml @ 100 mls/hr ONCE ONCE IV Last administered on 07/10/17 03:05; Start 07/10/17 at 03:00; Stop 07/10/17 at 03 :59; Status DC Dextrose (D50w (Vial) Inj) 50 ml UNSCH PRN IV PUSH HYPOGLYCEMIA-SEE COMMENTS; Start 07/10/17 at 02:45 Glucagon (Glucagon Inj) 1 mg UNSCH PRN OTHER HYPOGLYCEMIA-SEE COMMENTS; Start 07/10/17 at 02:45 Insulin Aspart (NovoLOG SUPPLEMENTAL SCALE) 1 ACHS SLIDING SCALE SQ Last administered on 07/13/17 17:00; Start 07/10/17 at 08:00 Sodium Chloride (NS Flush) 2 ml UNSCH PRN IV FLUSH FLUSH AFTER USING IV ACCESS ; Start 07/10/17 at 02:45 Sodium Chloride (NS Flush) 2 ml BID IV FLUSH Last administered on 07/13/17 20 :51; Start 07/10/17 at 09:00 Ondansetron HCl (Zofran Inj) 4 mg Q6H PRN IVP NAUSEA OR VOMITING; Start at 02:45 Acetaminophen (Tylenol) 650 mg Q6H PRN PO FEVER/PAIN SCALE 1 TO 2; Start 07/10 at 02:45 Acetaminophen/ Hydrocodone Bitart ([place] 5-325 Mg) 1 tab Q4H PRN PO PAIN SCALE 3 TO 5 Last administered on 07/14/17 04:09; Start 07/10/17 at 02:45 Morphine Sulfate (Morphine Inj) 2 mg Q3H PRN IV PUSH Pain 6-10 Last administered on 07/11/17 16:48; Start 07/10/17 at 02:45 Senna/Docusate Sodium (Sarita-Colace) 1 tab BID PO Last administered on 20:52; Start 07/10/17 at 09:00 Magnesium Hydroxide (Milk Of Magnesia Liq) 30 ml Q12H PRN PO Mild constipation ; Start 07/10/17 at 02:45 Sennosides (Senokot) 17.2 mg Q12H PRN PO Moderate constipation; Start at 02:45 Bisacodyl (Dulcolax Supp) 10 mg DAILY PRN RECTAL SEVERE CONSITIPATION Last administered on 07/12/17 21:53; Start 07/10/17 at 02:45 Lactulose (Lactulose Liq) 30 ml DAILY PRN PO SEVERE CONSITIPATION; Start 07/10 at 02:45 Allopurinol (Zyloprim) 300 mg DAILY PO Last administered on 07/13/17 08:45; Start 07/10/17 at 09:00 Amlodipine Besylate (Norvasc) 10 mg DAILY PO Last administered on 07/11/17 09 :20; Start 07/10/17 at 09:00; Stop 07/11/17 at 14:46; Status DC Aspirin (Aspirin Chew) 81 mg DAILY CHEW Last administered on 07/13/17 08:45; Start 07/10/17 at 09:00 Atorvastatin Calcium (Lipitor) 40 mg HS PO Last administered on 07/13/17 20: 52; Start 07/10/17 at 21:00 Baclofen (Lioresal) 20 mg TID PO Last administered on 07/13/17 17:12; Start 07/10/17 at 09:00 Furosemide (Lasix) 40 mg BID PO Last administered on 07/10/17 21:52; Start 07/10/17 at 09:00; Status Future Hold Gabapentin (Neurontin) 300 mg TID PO Last administered on 07/13/17 17:12; Start 07/10/17 at 09:00 Levothyroxine Sodium (Synthroid) 75 mcg DAILY@0700 PO Last administered on 06:32; Start 07/10/17 at 07:00 Metoprolol Tartrate (Lopressor) 150 mg BID PO Last administered on 07/10/17 08:02; Start 07/10/17 at 09:00; Stop 07/12/17 at 10:47; Status DC Sertraline HCl (Zoloft) 50 mg DAILY PO Last administered on 07/13/17 08:50; Start 07/10/17 at 09:00 Pantoprazole Sodium (Protonix) 40 mg DAILY PO Last administered on 07/13/17 08:46; Start 07/10/17 at 09:00 Nitroglycerin (Nitroglycerin 2% Oint) 0.5 inch Q6HR PRN TOPICAL CHEST PAIN; Start 07/10/17 at 03:00 Miscellaneous (Pill Splitter) 1 ea UNSCH PRN OTHER SEE LABEL COMMENTS; Start 07/10/17 at 03:15 Ceftriaxone Sodium 1000 mg/ Sodium Chloride 100 ml @ 200 mls/hr Q24H IV Last administered on 07/13/17 04:32; Start 07/10/17 at 04:00; Stop 07/13/17 at 07 :48; Status DC Potassium Chloride (KCl) 40 meq ONCE ONCE PO Last administered on 07/10/17 11:43; Start 07/10/17 at 12:00; Stop 07/10/17 at 12:01; Status DC Potassium Chloride (KCl) 40 meq ONCE ONCE PO Last administered on 07/10/17 15:12; Start 07/10/17 at 15:00; Stop 07/10/17 at 15:01; Status DC Potassium Chloride 100 ml @ 50 mls/hr ONCE ONCE IV Last administered on 07/10 11:43; Start 07/10/17 at 12:00; Stop 07/10/17 at 13:59; Status DC Sodium Chloride 1,000 ml @ 50 mls/hr Q20H IV Last administered on 07/10/17 23:00; Start 07/10/17 at 23:00; Stop 07/11/17 at 08:00; Status DC Magnesium Sulfate/ Dextrose 100 ml @ 200 mls/hr NOW ONCE IV Last administered on 07/10/17 21:50; Start 07/10/17 at 19:15; Stop 07/10/17 at 19 :44; Status DC Potassium Chloride (KCl) 40 meq NOW ONCE PO Last administered on 07/10/17 21 :51; Start 07/10/17 at 19:15; Stop 07/10/17 at 19:16; Status DC Potassium Chloride (KCl) 40 meq Q4H PO Last administered on 07/11/17 04:16; Start 07/10/17 at 23:00; Stop 07/11/17 at 03:01; Status DC Potassium Chloride (KCl) 40 meq ONCE ONCE PO Last administered on 07/11/17 09:19; Start 07/11/17 at 08:45; Stop 07/11/17 at 08:46; Status DC Potassium Chloride (KCl) 40 meq ONCE ONCE PO Last administered on 07/11/17 12:00; Start 07/11/17 at 12:30; Stop 07/11/17 at 12:31; Status DC Potassium Chloride 100 ml @ 50 mls/hr BOLUS ONCE IV Last administered on 09:00; Start 07/11/17 at 09:00; Stop 07/11/17 at 10:59; Status DC Magnesium Sulfate/ Dextrose 100 ml @ 100 mls/hr ONCE ONCE IV Last administered on 07/11/17 09:18; Start 07/11/17 at 09:00; Stop 07/11/17 at 09 :59; Status DC Enoxaparin Sodium (Lovenox Inj) 40 mg Q24H SQ Last administered on 07/11/17 09:22; Start 07/11/17 at 09:00; Status Future Hold Sodium Chloride 500 ml @ 40 mls/hr [id number] ONCE IV Last administered on 23:50; Start 07/11/17 at 23:00; Stop 07/12/17 at 11:29; Status DC Metoprolol Tartrate (Lopressor) 150 mg ONCE ONCE PO Last administered on 07/11 09:20; Start 07/11/17 at 09:00; Stop 07/11/17 at 09:01; Status DC Metoprolol Tartrate (Lopressor) 12.5 mg Q12HR PO Last administered on 09:02; Start 07/11/17 at 21:00; Stop 07/12/17 at 10:15; Status DC Amlodipine Besylate (Norvasc) 2.5 mg DAILY PO Last administered on 07/12/17 09:02; Start 07/12/17 at 09:00; Stop 07/12/17 at 10:14; Status DC Amlodipine Besylate (Norvasc) 5 mg DAILY PO Last administered on 07/13/17 08: 45; Start 07/13/17 at 09:00 Metoprolol Tartrate (Lopressor) 50 mg Q12HR PO Last administered on 07/13/17 20:52; Start 07/12/17 at 21:00 Amlodipine Besylate (Norvasc) 2.5 mg ONCE ONCE PO Last administered on 10:50; Start 07/12/17 at 11:00; Stop 07/12/17 at 11:01; Status DC Metoprolol Tartrate (Lopressor) 25 mg ONCE ONCE PO Last administered on 10:50; Start 07/12/17 at 11:00; Stop 07/12/17 at 11:01; Status DC Atropine Sulfate (Atropine Inj) 1 mg STK-MED ONCE .ROUTE ; Start 07/12/17 at 11 :28; Stop 07/12/17 at 11:29; Status DC Lidocaine HCl (Xylocaine 2% Inj) 100 mg STK-MED ONCE .ROUTE ; Start 07/12/17 at 11:29; Stop 07/12/17 at 11:30; Status DC Epinephrine HCl (EPINEPHrine (1:10,000) INJ) 1 mg STK-MED ONCE .ROUTE ; Start 07/12/17 at 11:29; Stop 07/12/17 at 11:30; Status DC Atropine Sulfate (Atropine Inj) 1 mg STK-MED ONCE .ROUTE ; Start 07/13/17 at 12 :12; Stop 07/13/17 at 12:13; Status DC Lidocaine HCl (Xylocaine 2% Inj) 100 mg STK-MED ONCE .ROUTE ; Start 07/13/17 at 12:12; Stop 07/13/17 at 12:13; Status DC Epinephrine HCl (EPINEPHrine (1:10,000) INJ) 1 mg STK-MED ONCE .ROUTE ; Start 07/13/17 at 12:13; Stop 07/13/17 at 12:14; Status DC A/P Problem List: (1) Chest pain ICD Code: R07.9 - Chest pain, unspecified (2) Hypokalemia ICD Code: E87.6 - Hypokalemia (3) Hypomagnesemia ICD Code: E83.42 - Hypomagnesemia (4) Dehydration ICD Code: E86.0 - Dehydration (5) HTN (hypertension) ICD Code: I10 - Essential (primary) hypertension (6) UTI (urinary tract infection) ICD Code: N39.0 - Urinary tract infection, site not specified (7) DM (diabetes mellitus) ICD Code: E11.9 - Type 2 diabetes mellitus without complications Assessment and Plan A/P 1. Chest / epigastric Pain: h/o CAD s/p Cardiac Stent approx 4yrs ago, now w/ chest pain x2-3 days. Initial trops negative. resumed home ASA, Statin. NTG/Morphine prn. s/p EGD with irregular Z line-otherwise normal- continue PPI- biopsy to be followed up- GI signed off. cardiology following- awaiting stress test today. 2. Hypokalemia:replaced. 3. Hypomagnesemia: replaced. 4. Dehydration: received IVF. 5. abnormal UA; UC with mixed bacteria- stopped antibiotic. 6. DM: Sliding scale w/ Accu-Cheks, hold Metformin for now. 7. DVT Prophylaxis: lovenox ( on hold for now). Discharge Planning pending stress test and cardiology recommendations. d/w the patient and RN. Leatha Tom MD Jul 14, 2017 07:37
[2017-07-14] MEDS ORDERED: AMLO5 PO (07:40)
[2017-07-14] MEDS: INSULIN ASPART SUPPLEMENTAL SCALE SQ SCH ×5 (08:00→20:04)
[2017-07-14] MEDS: ASPIRIN 81 MG CHEW TAB CHEW SCH (09:00)
[2017-07-14] MEDS: DOCUSATE SODIUM 50 MG/SENNA 8.6 MG TAB PO SCH ×2 (09:00→20:02)
[2017-07-14] MEDS: GABAPENTIN 300 MG CAP PO SCH ×3 (09:10→18:19)
[2017-07-14] MEDS: ALLOPURINOL 300 MG TAB PO SCH (09:11)
[2017-07-14] MEDS: SERTRALINE HCL 50 MG TAB PO SCH (09:11)
[2017-07-14] MEDS: BACLOFEN 20 MG TAB PO SCH ×3 (09:12→18:18)
[2017-07-14] MEDS: PANTOPRAZOLE SOD 40 MG DELAYED RELEASE TAB PO SCH (09:12)
[2017-07-14] MEDS: amLODIPine BESYLATE 5 MG TAB PO SCH (09:12)
[2017-07-14] MEDS: SODIUM CHLORIDE 0.9% FLUSH 10 ML FLUSH IV FLUSH SCH ×2 (09:13→20:03)
[2017-07-14] MEDS: METOPROLOL TARTRATE 50 MG TAB PO SCH ×2 (09:13→20:04)
--- NOTE | 2017-07-14 10:17 | PD.CARD.PN ---
Subjective Subjective Remarks Chest pain has not resolved Objective Medications Current Medications Medications (Trade) Dose Ordered Sig/Andre Route Start Time Stop Time Status Last Admin (D50w (Vial) Inj) 50 ml UNSCH PRN IV PUSH 07/10/17 02:45 (Glucagon Inj) 1 mg UNSCH PRN OTHER 07/10/17 02:45 (NovoLOG SUPPLEMENTAL SCALE) 1 ACHS SLIDING SCALE SQ 07/10/17 08:00 07/13/17 17:00 (NS Flush) 2 ml UNSCH PRN IV FLUSH 07/10/17 02:45 (NS Flush) 2 ml BID IV FLUSH 07/10/17 09:00 07/14/17 09:13 (Zofran Inj) 4 mg Q6H PRN IVP 07/10/17 02:45 (Tylenol) 650 mg Q6H PRN PO 07/10/17 02:45 ([place] 5-325 Mg) 1 tab Q4H PRN PO 07/10/17 02:45 07/14/17 09:10 (Morphine Inj) 2 mg Q3H PRN IV PUSH 07/10/17 02:45 07/11/17 16:48 (Sarita-Colace) 1 tab BID PO 07/10/17 09:00 07/14/17 09:00 (Milk Of Magnesia Liq) 30 ml Q12H PRN PO 07/10/17 02:45 (Senokot) 17.2 mg Q12H PRN PO 07/10/17 02:45 (Dulcolax Supp) 10 mg DAILY PRN RECTAL 07/10/17 02:45 07/12/17 21:53 (Lactulose Liq) 30 ml DAILY PRN PO 07/10/17 02:45 (Zyloprim) 300 mg DAILY PO 07/10/17 09:00 07/14/17 09:11 (Aspirin Chew) 81 mg DAILY CHEW 07/10/17 09:00 07/14/17 09:00 (Lipitor) 40 mg HS PO 07/10/17 21:00 07/13/17 20:52 (Lioresal) 20 mg TID PO 07/10/17 09:00 07/14/17 09:12 (Lasix) 40 mg BID PO 07/10/17 09:00 Future Hold 07/10/17 21:52 (Neurontin) 300 mg TID PO 07/10/17 09:00 07/14/17 09:10 (Synthroid) 75 mcg DAILY@0700 PO 07/10/17 07:00 07/14/17 06:32 (Zoloft) 50 mg DAILY PO 07/10/17 09:00 07/14/17 09:11 (Protonix) 40 mg DAILY PO 07/10/17 09:00 07/14/17 09:12 (Nitroglycerin 2% Oint) 0.5 inch Q6HR PRN TOPICAL 07/10/17 03:00 (Pill Splitter) 1 ea UNSCH PRN OTHER 07/10/17 03:15 (Lovenox Inj) 40 mg Q24H SQ 07/11/17 09:00 Future Hold 07/11/17 09:22 (Norvasc) 5 mg DAILY PO 07/13/17 09:00 07/14/17 09:12 (Lopressor) 50 mg Q12HR PO 07/12/17 21:00 07/14/17 09:13 Vital Signs / I&O Vital Signs Date Time Temp Pulse Resp B/P (MAP) Pulse Ox O2 Delivery O2 Flow Rate FiO2 07/14/17 07:00 98.3 83 20 156/73 (100) 96 07/14/17 06:00 77 07/14/17 05:00 78 07/14/17 04:00 98.8 82 18 161/83 (109) 94 07/14/17 04:00 80 07/14/17 03:00 72 07/14/17 02:00 70 07/14/17 01:00 68 07/14/17 00:00 98.5 76 18 134/69 (90) 96 07/14/17 00:00 70 07/13/17 23:00 72 07/13/17 22:00 78 07/13/17 21:00 88 07/13/17 20:00 76 07/13/17 20:00 78 07/13/17 20:00 98.8 89 18 169/86 (113) 96 07/13/17 19:00 76 07/13/17 18:00 80 07/13/17 17:00 81 07/13/17 16:00 83 07/13/17 15:32 98.7 82 16 144/83 (103) 98 07/13/17 15:00 92 07/13/17 12:00 74 07/13/17 11:45 98.4 73 16 131/70 (90) 95 07/13/17 11:00 80 I/O 07/13/17 07/13/17 07/13/17 07/14/17 07/14/17 07/14/17 07:00 15:00 23:00 07:00 15:00 23:00 Intake Total 960 ml 720 ml 360 ml Output Total 550 ml 650 ml Balance 410 ml 720 ml -290 ml Intake Oral 960 ml 720 ml 360 ml Output Urine Total 550 ml 650 ml # Voids 3 # Bowel Movements 1 0 Physical Exam Alert Chest Clear CV S1S2 RRR Abd - soft No edema Assessment and Plan Problem List: (1) HTN (hypertension) ICD Codes: I10 - Essential (primary) hypertension (2) Chest pain ICD Codes: R07.9 - Chest pain, unspecified (3) Coronary artery disease ICD Codes: I25.10 - Atherosclerotic heart disease of [place] coronary artery without angina pectoris Plan: Chest pain continues. After further thought, I think she needs definitive w/u by undergoing coronary angiography. She has known CAD and no other etiology has been found for her angina. Hct stabilized. I'vs asked my associate Dr. Marinelli to add her to cath schedule. Informed consent obtained. Emiliano Hernandes MD Jul 14, 2017 10:17
--- NOTE | 2017-07-14 10:36 | RADRPT ---
EXAM DATE/TIME: 07/13/2017 13:27 [place] COMPARISON: No previous studies available for comparison. INDICATIONS : Coronary artery disease. DOSE: 31.2 mCi Tc99m Myoview MEDICAL HISTORY : Myocardial infarction. Hypertension. SURGICAL HISTORY : Coronary artery stent. Hysterectomy. section. ENCOUNTER: Initial ACUITY: 1 day PAIN SCALE: 0/10 LOCATION: chest TECHNIQUE: Resting injection SPECT was performed. Examination was performed on a SPECT/CT scanner. Attenuation corrected and non-attenuation correction images were reviewed. Stress images were not performed since patient was taken immediately to the [facility]. FINDINGS: This is a limited examination. The rest images presented are grossly unremarkable. CONCLUSION: Unremarkable limited myocardial exam. RISK CATEGORY: na Otilio Ruiz MD on July 14, 2017 at 10:30 Board Certified Radiologist. This report was verified electronically.
[2017-07-14] MEDS ORDERED: HEPARIN-NS/PF INJ 1,000 ML ONE ×2 (10:47→11:37)
[2017-07-14] MEDS ORDERED: SODIUM CHLORID 0.9% 500 ML INJ 500 ML ONE ×2 (10:47→11:39)
[2017-07-14] MEDS ORDERED: HEPARIN SODIUM - IV 10,000 UNITS/10 ML VIAL ONE ×2 (10:48→11:47)
[2017-07-14] MEDS ORDERED: VERAPAMIL HCL 5 MG/2 ML VIAL ONE (10:48)
[2017-07-14] MEDS ORDERED: MIDAZOLAM HCL 2 MG/2 ML VIAL ONE (10:48)
[2017-07-14] MEDS ORDERED: CLOPIDOGREL 300 MG TAB ONE (11:55)
[2017-07-14] MEDS ORDERED: TICAGRELOR 90 MG TAB PO ONE (12:01)
[2017-07-14] MEDS ORDERED: IOHEXOL 350 MG/ML 100 ML BTL (for Cath Lab) OTHER ONE (13:17)
--- NOTE | 2017-07-14 14:25 | MA ---
cc: ERROL ARAMBULA DO DATE: 07/14/2017. PROCEDURE PERFORMED: Left heart catheterization, coronary angiogram, moderate sedation 45 minutes, Resolute drug-eluting stent (2.5 x 26) to the RCA. PREPROCEDURE DIAGNOSIS: Unstable angina on multiple antianginal medications, history of coronary artery disease. POSTPROCEDURE DIAGNOSIS: Coronary artery disease status post Resolute drug-eluting stent (2.5 x 26) to the RCA, residual moderate in-stent restenosis of LAD stent. MEDICATIONS: 1. Versed 0.5 milligrams. 2. Fentanyl 25 micrograms. 3. Verapamil 2.5 milligrams. 4. Nitro 200 micrograms. 5. Heparin 11,000 units. 6. Brilinta 180 milligrams. CONTRAST USED: 95 mL. FLUOROSCOPY: 7.4 minutes. SEDATION: Moderate sedation 45 minutes ESTIMATED BLOOD LOSS: 10 cc. PROCEDURAL SUMMARY: Lori Gomez is a pleasant 72-year-old female who presented to the [facility] Emergency Room on July 10, 2017 due to chest pain. She was seen by my partner Dr. Hernandes who was considering stress testing her but then she continued to have chest pain concerning for coronary insufficiency. Because of this, he asked if I would see her for possible coronary catheterization. Risks, benefits and alternatives were explained her and she consented as such. DESCRIPTION OF THE PROCEDURE IN DETAIL: She was brought to the lab and prepped in the usual sterile fashion. Right radial artery was accessed using a modified Seldinger technique and placement of a 5/6 [place] slender sheath. This was easily aspirated and flushed. A JR-4 was advanced over a J-wire to the ascending aorta and across the aortic valve for measurement of left ventricular pressure. This was pulled back across the aortic valve showing no significant gradient of aortic stenosis. JR-4 was then used for selective angiography of the right coronary artery. This was exchanged out for a JL-3.5 which was used for selective angiography of the left coronary artery. Please see interventional notes below for further details. At the end of the case, the guide was removed over a J-wire. Radial band was placed over the arteriotomy site for hemostasis. 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 FINDINGS: 1. Left main: Normal sized vessel with 10% disease. It bifurcates into a left anterior descending and circumflex. 2. Left anterior descending: The left anterior descending is a normal sized vessel. There is a stent in the midportion with a 70% to 70% in-stent focal restenosis. Otherwise, no significant disease. 3. Diagonal has 10% disease. 4. Left circumflex: Distal to the takeoff of the obtuse marginal there is a 40% to 50% lesion. No other significant disease throughout the left circumflex or obtuse marginals. 5. Right coronary artery. The right coronary artery is a normal sized vessel with a diffuse 70% with a focal 90% lesion in the midportion. Left ventricular end diastolic pressure 20. INTERVENTIONAL: Because of the significance of the right coronary artery lesion, as well as the patient's unstable angina on antianginals, it was felt that the right coronary artery should be intervened on as it was felt to be the culprit vessel. The patient was given heparin as an additional anticoagulant. A JR-4 guide was then engaged into the right coronary artery. A [place] wire was advanced into the distal portion of the right coronary artery. A Compliant balloon (2 x 20) was then used to pre-dilate the lesion. A Resolute drug-eluting stent (2.5 x 26) was then placed across the lesion and inflated. This was post-dilated with a noncompliant balloon (2.5 x 15). Post angiography shows a well-apposed stent with no residual disease, no dissections or perforations. The wire was removed. The guide was removed. The patient was given 180 milligrams of Brilinta. IMPRESSION: 1. Unstable angina on multiple antianginals. 2. Chest pain concerning for coronary insufficiency. 3. History of coronary artery disease. 4. Status post Resolute drug-eluting stent (2.5 x 26) to the RCA, residual moderate to severe LAD in-stent restenosis. RECOMMENDATIONS: 1. Ms. Gomez underwent stenting of her RCA and will be placed on aspirin and Brilinta therapy. She has been given a card for a free 30 days of Brilinta and instructions to follow up on how much refills will be, and if too expensive, will call my office for changing to Plavix. 2. She will be watched over the next 24 hours and if no chest pain and she is stable tomorrow, she may be discharged. 3. If she has chest pain overnight or tomorrow, then I will plan on fixing her LAD on Monday. 4. She will follow up in the office with me in the next few weeks. If she continues to have chest pain, then we will plan on fixing the LAD. 5. I have added JOSE inhibitor therapy to her current beta-matilda and statin therapy. Thank you for allowing me to see Lori Gomez. If there are any questions please do not hesitate to call. Errol Arambula DO PALMER/JCC /1:33 PM /1:49 PM
[2017-07-14] MEDS: ATORVASTATIN 40 MG TAB PO SCH (20:03)
[2017-07-14] MEDS: TICAGRELOR 90 MG TAB PO SCH (20:03)
[2017-07-15] VITALS (18 sets, daily range): BP systolic 134–164; BP diastolic 70–89; PULSE 60–104; RESP 17–18; TEMP 98–98.4; O2SAT 96–97
[2017-07-15] MEDS: LEVOTHYROXINE SODIUM 75 MCG TAB PO SCH (06:39)
[2017-07-15 07:11] LABS: AUTOMATED NEUTROPHIL # 6.8 TH/MM3 (1.8-7.7); BASOPHIL % 0.5 % (0.0-2.0); EOSINOPHIL # 0.2 TH/MM3 (0-0.4); EOSINOPHIL % 2.6 % (0.0-4.0); HEMATOCRIT 26.8 % (35.0-46.0); HEMO FLAGS DIFF FINAL; LYMPH % 14.6 % (9.0-44.0); LYMPHOCYTE # 1.3 TH/MM3 (1.0-4.8); MEAN CELL VOLUME 84.2 FL (80.0-100.0); MEAN CORPUSCULAR HGB CONC 33.2 % (32.0-36.0); NEUT % 75.3 % (16.0-70.0); PLATELET COUNT 380 TH/MM3 (150-450); RED BLOOD COUNT 3.18 MIL/MM3 (4.00-5.30); RED CELL DISTRIBUTION WIDTH 15.1 % (11.6-17.2); WHITE BLOOD COUNT 9.1 TH/MM3 (4.0-11.0)
[2017-07-15 07:57] LABS: BICARBONATE 32.6 MEQ/L (21.0-32.0)
[2017-07-15] MEDS: INSULIN ASPART SUPPLEMENTAL SCALE SQ SCH ×2 (08:00→11:48)
[2017-07-15] MEDS: SERTRALINE HCL 50 MG TAB PO SCH (08:28)
[2017-07-15] MEDS: ACETAMINOPHEN/HYDROcodone 325 MG/5 MG TAB PO PRN ×2 (08:29→15:04)
[2017-07-15] MEDS: GABAPENTIN 300 MG CAP PO SCH ×2 (08:30→12:29)
[2017-07-15] MEDS: ASPIRIN 81 MG CHEW TAB CHEW SCH (08:31)
[2017-07-15] MEDS: TICAGRELOR 90 MG TAB PO SCH (08:31)
[2017-07-15] MEDS: METOPROLOL TARTRATE 50 MG TAB PO SCH (08:31)
[2017-07-15] MEDS: PANTOPRAZOLE SOD 40 MG DELAYED RELEASE TAB PO SCH (08:31)
[2017-07-15] MEDS: ALLOPURINOL 300 MG TAB PO SCH (08:31)
[2017-07-15] MEDS: amLODIPine BESYLATE 5 MG TAB PO SCH (08:31)
[2017-07-15] MEDS: SODIUM CHLORIDE 0.9% FLUSH 10 ML FLUSH IV FLUSH SCH (08:32)
[2017-07-15] MEDS: BACLOFEN 20 MG TAB PO SCH ×2 (08:32→12:29)
[2017-07-15] MEDS: DOCUSATE SODIUM 50 MG/SENNA 8.6 MG TAB PO SCH (08:32)
[2017-07-15] MEDS ORDERED: LISINOPRIL 5 MG TAB PO SCH (09:00)
--- NOTE | 2017-07-15 09:03 | HHI.PR ---
Subjective Remarks in no acute distress and looks comfortable. no chest pain or sob over night. no other complaints. Objective Vitals Vital Signs Date Time Temp Pulse Resp B/P (MAP) Pulse Ox O2 Delivery O2 Flow Rate FiO2 07/15/17 08:21 96 18 164/89 (114) 96 07/15/17 08:00 104 07/15/17 07:00 71 07/15/17 06:00 72 07/15/17 05:00 71 07/15/17 04:00 Nasal Cannula 2.00 07/15/17 04:00 74 07/15/17 04:00 98.0 74 18 164/89 (114) 97 07/15/17 03:00 71 07/15/17 02:00 60 07/15/17 01:00 63 07/15/17 00:00 98.1 69 18 134/70 (91) 97 07/15/17 00:00 69 07/15/17 00:00 Nasal Cannula 2.00 07/14/17 23:00 75 07/14/17 22:00 95 07/14/17 21:00 88 07/14/17 20:00 89 07/14/17 20:00 98.4 89 20 150/79 (102) 98 07/14/17 18:00 88 07/14/17 17:00 80 07/14/17 16:00 86 07/14/17 15:00 82 07/14/17 15:00 98.0 86 18 159/86 (110) 98 07/14/17 14:00 72 07/14/17 13:00 72 07/14/17 12:30 98.1 74 18 146/60 (88) 96 07/14/17 10:30 20 07/14/17 10:00 74 07/14/17 09:00 78 I/O 07/14/17 07/14/17 07/14/17 07/15/17 07/15/17 07/15/17 07:00 15:00 23:00 07:00 15:00 23:00 Intake Total 360 ml 420 ml 240 ml Output Total 650 ml 800 ml 750 ml Balance -290 ml -380 ml -510 ml Intake Oral 360 ml 420 ml 240 ml Output Urine Total 650 ml 800 ml 750 ml # Bowel Movements 0 2 Result Diagram: 07/15/1745 07/15/1745 Imaging Last Impressions Myocardial Perfusion Scan Nuc Med 07/13/17 0000 Signed Impressions: Service Date/Time: June 13:27 - CONCLUSION: Unremarkable limited myocardial exam. RISK CATEGORY: na Otilio Ruiz MD Chest X-Ray 07/09/17 2338 Signed Impressions: Service Date/Time: Sunday, July 09, 2017 23:44 - CONCLUSION: 1. No acute cardiopulmonary disease. Lj Vasquez MD Objective Remarks GENERAL: This is a well-nourished, well-developed patient, in no apparent distress. CARDIOVASCULAR: Regular rate and regular rhythm without murmurs, gallops, or rubs. RESPIRATORY: Clear to auscultation. Breath sounds equal bilaterally. No wheezes , rales, or rhonchi. chest is tender to touch. GASTROINTESTINAL: Abdomen soft, non-tender, nondistended. Normal, active bowel sounds MUSCULOSKELETAL: Extremities without clubbing, cyanosis, or edema. NEURO: Alert & Oriented x4 to person, place, time, situation. Moves all ext x4 Procedures EGD cardiac cath Medications and IVs Current Medications Aspirin (Aspirin Chew) 324 mg ONCE ONCE PO Last administered on 07/09/17 23: 48; Start 07/09/17 at 23:45; Stop 07/09/17 at 23:46; Status DC Nitroglycerin (Nitroglycerin 2% Oint) 1 inch ONCE ONCE TOP Last administered on 07/09/17 23:48; Start 07/09/17 at 23:45; Stop 07/09/17 at 23:46; Status DC Sodium Chloride (NS Flush) 2 ml UNSCH PRN IVF FLUSH AFTER USING IV ACCESS; Start 07/09/17 at 23:45; Stop 07/10/17 at 03:04; Status DC Nitroglycerin (Nitrostat Sl) 0.4 mg ONCE ONCE SL Last administered on 23:48; Start 07/09/17 at 23:45; Stop 07/09/17 at 23:46; Status DC Potassium Bicarb/ Potassium Chloride (K-Lyte Cl Eff) 50 meq ONCE ONCE PO Last administered on 07/10/17 01:15; Start 07/10/17 at 01:00; Stop 07/10/17 at 01:01; Status DC Magnesium Sulfate/ Dextrose 100 ml @ 100 mls/hr ONCE ONCE IV Last administered on 07/10/17 03:05; Start 07/10/17 at 03:00; Stop 07/10/17 at 03 :59; Status DC Dextrose (D50w (Vial) Inj) 50 ml UNSCH PRN IV PUSH HYPOGLYCEMIA-SEE COMMENTS; Start 07/10/17 at 02:45 Glucagon (Glucagon Inj) 1 mg UNSCH PRN OTHER HYPOGLYCEMIA-SEE COMMENTS; Start 07/10/17 at 02:45 Insulin Aspart (NovoLOG SUPPLEMENTAL SCALE) 1 ACHS SLIDING SCALE SQ Last administered on 07/14/17 17:00; Start 07/10/17 at 08:00 Sodium Chloride (NS Flush) 2 ml UNSCH PRN IV FLUSH FLUSH AFTER USING IV ACCESS ; Start 07/10/17 at 02:45 Sodium Chloride (NS Flush) 2 ml BID IV FLUSH Last administered on 07/15/17 08 :32; Start 07/10/17 at 09:00 Ondansetron HCl (Zofran Inj) 4 mg Q6H PRN IVP NAUSEA OR VOMITING; Start at 02:45 Acetaminophen (Tylenol) 650 mg Q6H PRN PO FEVER/PAIN SCALE 1 TO 2; Start 07/10 at 02:45 Acetaminophen/ Hydrocodone Bitart ([place] 5-325 Mg) 1 tab Q4H PRN PO PAIN SCALE 3 TO 5 Last administered on 07/15/17 08:29; Start 07/10/17 at 02:45 Morphine Sulfate (Morphine Inj) 2 mg Q3H PRN IV PUSH Pain 6-10 Last administered on 07/11/17 16:48; Start 07/10/17 at 02:45 Senna/Docusate Sodium (Sarita-Colace) 1 tab BID PO Last administered on 08:32; Start 07/10/17 at 09:00 Magnesium Hydroxide (Milk Of Magnesia Liq) 30 ml Q12H PRN PO Mild constipation ; Start 07/10/17 at 02:45 Sennosides (Senokot) 17.2 mg Q12H PRN PO Moderate constipation; Start at 02:45 Bisacodyl (Dulcolax Supp) 10 mg DAILY PRN RECTAL SEVERE CONSITIPATION Last administered on 07/12/17 21:53; Start 07/10/17 at 02:45 Lactulose (Lactulose Liq) 30 ml DAILY PRN PO SEVERE CONSITIPATION; Start 07/10 at 02:45 Allopurinol (Zyloprim) 300 mg DAILY PO Last administered on 07/15/17 08:31; Start 07/10/17 at 09:00 Amlodipine Besylate (Norvasc) 10 mg DAILY PO Last administered on 07/11/17 09 :20; Start 07/10/17 at 09:00; Stop 07/11/17 at 14:46; Status DC Aspirin (Aspirin Chew) 81 mg DAILY CHEW Last administered on 07/15/17 08:31; Start 07/10/17 at 09:00 Atorvastatin Calcium (Lipitor) 40 mg HS PO Last administered on 07/14/17 20: 03; Start 07/10/17 at 21:00 Baclofen (Lioresal) 20 mg TID PO Last administered on 07/15/17 08:32; Start 07/10/17 at 09:00 Furosemide (Lasix) 40 mg BID PO Last administered on 07/10/17 21:52; Start 07/10/17 at 09:00; Status Future Hold Gabapentin (Neurontin) 300 mg TID PO Last administered on 07/15/17 08:30; Start 07/10/17 at 09:00 Levothyroxine Sodium (Synthroid) 75 mcg DAILY@0700 PO Last administered on 06:39; Start 07/10/17 at 07:00 Metoprolol Tartrate (Lopressor) 150 mg BID PO Last administered on 07/10/17 08:02; Start 07/10/17 at 09:00; Stop 07/12/17 at 10:47; Status DC Sertraline HCl (Zoloft) 50 mg DAILY PO Last administered on 07/15/17 08:28; Start 07/10/17 at 09:00 Pantoprazole Sodium (Protonix) 40 mg DAILY PO Last administered on 07/15/17 08:31; Start 07/10/17 at 09:00 Nitroglycerin (Nitroglycerin 2% Oint) 0.5 inch Q6HR PRN TOPICAL CHEST PAIN; Start 07/10/17 at 03:00 Miscellaneous (Pill Splitter) 1 ea UNSCH PRN OTHER SEE LABEL COMMENTS; Start 07/10/17 at 03:15 Ceftriaxone Sodium 1000 mg/ Sodium Chloride 100 ml @ 200 mls/hr Q24H IV Last administered on 07/13/17 04:32; Start 07/10/17 at 04:00; Stop 07/13/17 at 07 :48; Status DC Potassium Chloride (KCl) 40 meq ONCE ONCE PO Last administered on 07/10/17 11:43; Start 07/10/17 at 12:00; Stop 07/10/17 at 12:01; Status DC Potassium Chloride (KCl) 40 meq ONCE ONCE PO Last administered on 07/10/17 15:12; Start 07/10/17 at 15:00; Stop 07/10/17 at 15:01; Status DC Potassium Chloride 100 ml @ 50 mls/hr ONCE ONCE IV Last administered on 07/10 11:43; Start 07/10/17 at 12:00; Stop 07/10/17 at 13:59; Status DC Sodium Chloride 1,000 ml @ 50 mls/hr Q20H IV Last administered on 07/10/17 23:00; Start 07/10/17 at 23:00; Stop 07/11/17 at 08:00; Status DC Magnesium Sulfate/ Dextrose 100 ml @ 200 mls/hr NOW ONCE IV Last administered on 07/10/17 21:50; Start 07/10/17 at 19:15; Stop 07/10/17 at 19 :44; Status DC Potassium Chloride (KCl) 40 meq NOW ONCE PO Last administered on 07/10/17 21 :51; Start 07/10/17 at 19:15; Stop 07/10/17 at 19:16; Status DC Potassium Chloride (KCl) 40 meq Q4H PO Last administered on 07/11/17 04:16; Start 07/10/17 at 23:00; Stop 07/11/17 at 03:01; Status DC Potassium Chloride (KCl) 40 meq ONCE ONCE PO Last administered on 07/11/17 09:19; Start 07/11/17 at 08:45; Stop 07/11/17 at 08:46; Status DC Potassium Chloride (KCl) 40 meq ONCE ONCE PO Last administered on 07/11/17 12:00; Start 07/11/17 at 12:30; Stop 07/11/17 at 12:31; Status DC Potassium Chloride 100 ml @ 50 mls/hr BOLUS ONCE IV Last administered on 09:00; Start 07/11/17 at 09:00; Stop 07/11/17 at 10:59; Status DC Magnesium Sulfate/ Dextrose 100 ml @ 100 mls/hr ONCE ONCE IV Last administered on 07/11/17 09:18; Start 07/11/17 at 09:00; Stop 07/11/17 at 09 :59; Status DC Enoxaparin Sodium (Lovenox Inj) 40 mg Q24H SQ Last administered on 07/11/17 09:22; Start 07/11/17 at 09:00; Status Future Hold Sodium Chloride 500 ml @ 40 mls/hr [id number] ONCE IV Last administered on 23:50; Start 07/11/17 at 23:00; Stop 07/12/17 at 11:29; Status DC Metoprolol Tartrate (Lopressor) 150 mg ONCE ONCE PO Last administered on 07/11 09:20; Start 07/11/17 at 09:00; Stop 07/11/17 at 09:01; Status DC Metoprolol Tartrate (Lopressor) 12.5 mg Q12HR PO Last administered on 09:02; Start 07/11/17 at 21:00; Stop 07/12/17 at 10:15; Status DC Amlodipine Besylate (Norvasc) 2.5 mg DAILY PO Last administered on 07/12/17 09:02; Start 07/12/17 at 09:00; Stop 07/12/17 at 10:14; Status DC Amlodipine Besylate (Norvasc) 5 mg DAILY PO Last administered on 07/15/17 08: 31; Start 07/13/17 at 09:00 Metoprolol Tartrate (Lopressor) 50 mg Q12HR PO Last administered on 07/15/17 08:31; Start 07/12/17 at 21:00 Amlodipine Besylate (Norvasc) 2.5 mg ONCE ONCE PO Last administered on 10:50; Start 07/12/17 at 11:00; Stop 07/12/17 at 11:01; Status DC Metoprolol Tartrate (Lopressor) 25 mg ONCE ONCE PO Last administered on 10:50; Start 07/12/17 at 11:00; Stop 07/12/17 at 11:01; Status DC Atropine Sulfate (Atropine Inj) 1 mg STK-MED ONCE .ROUTE ; Start 07/12/17 at 11 :28; Stop 07/12/17 at 11:29; Status DC Lidocaine HCl (Xylocaine 2% Inj) 100 mg STK-MED ONCE .ROUTE ; Start 07/12/17 at 11:29; Stop 07/12/17 at 11:30; Status DC Epinephrine HCl (EPINEPHrine (1:10,000) INJ) 1 mg STK-MED ONCE .ROUTE ; Start 07/12/17 at 11:29; Stop 07/12/17 at 11:30; Status DC Atropine Sulfate (Atropine Inj) 1 mg STK-MED ONCE .ROUTE ; Start 07/13/17 at 12 :12; Stop 07/13/17 at 12:13; Status DC Lidocaine HCl (Xylocaine 2% Inj) 100 mg STK-MED ONCE .ROUTE ; Start 07/13/17 at 12:12; Stop 07/13/17 at 12:13; Status DC Epinephrine HCl (EPINEPHrine (1:10,000) INJ) 1 mg STK-MED ONCE .ROUTE ; Start 07/13/17 at 12:13; Stop 07/13/17 at 12:14; Status DC Heparin Sodium/ Sodium Chloride 1,000 ml @ As Directed STK-MED ONCE .ROUTE ; Start 07/14/17 at 10:47; Stop 07/14/17 at 10:48; Status DC Sodium Chloride 500 ml @ As Directed STK-MED ONCE .ROUTE ; Start 07/14/17 at 10:47; Stop 07/14/17 at 10:48; Status DC Midazolam HCl (Versed Inj) 2 mg STK-MED ONCE .ROUTE Last administered on 11:18; Start 07/14/17 at 10:48; Stop 07/14/17 at 10:49; Status DC Fentanyl Citrate (fentaNYL INJ) 100 mcg STK-MED ONCE .ROUTE Last administered on 07/14/17 11:19; Start 07/14/17 at 10:48; Stop 07/14/17 at 10:49; Status DC Verapamil HCl (Isoptin Inj) 5 mg STK-MED ONCE .ROUTE Last administered on 07/14 10:48; Start 07/14/17 at 10:48; Stop 07/14/17 at 10:49; Status DC Heparin Sodium (Porcine) (Heparin Inj) 10,000 units STK-MED ONCE .ROUTE Last administered on 07/14/17 11:32; Start 07/14/17 at 10:48; Stop 07/14/17 at 10 :49; Status DC Heparin Sodium/ Sodium Chloride 1,000 ml @ As Directed STK-MED ONCE .ROUTE ; Start 07/14/17 at 11:37; Stop 07/14/17 at 11:38; Status DC Sodium Chloride 500 ml @ As Directed STK-MED ONCE .ROUTE ; Start 07/14/17 at 11:39; Stop 07/14/17 at 11:40; Status DC Heparin Sodium (Porcine) (Heparin Inj) 10,000 units STK-MED ONCE .ROUTE Last administered on 07/14/17 11:47; Start 07/14/17 at 11:47; Stop 07/14/17 at 11 :48; Status DC Clopidogrel Bisulfate (Plavix) 600 mg STK-MED ONCE .ROUTE ; Start 07/14/17 at 11:55; Stop 07/14/17 at 11:56; Status DC Ticagrelor (Brilinta) 180 mg STK-MED ONCE PO Last administered on 07/14/17 12 :02; Start 07/14/17 at 12:01; Stop 07/14/17 at 12:02; Status DC Ticagrelor (Brilinta) 90 mg BID PO Last administered on 07/15/17 08:31; Start 07/14/17 at 21:00 Lisinopril (Prinivil) 5 mg DAILY PO Last administered on 07/15/17 08:31; Start 07/15/17 at 09:00 Iohexol (OMNIPAQUE 350 INJ (Vacuum Extractor Operator)) 100 ml STK-MED ONCE OTHER ; Start at 13:17; Stop 07/14/17 at 13:18; Status DC Lidocaine HCl (Xylocaine-Mpf 1% Inj) 5 ml STK-MED ONCE OTHER ; Start 10/18/17 at 12:00; Stop 07/14/17 at 14:31; Status DC Rocuronium [place] (Zemuron Inj) 50 mg STK-MED ONCE IV PUSH ; Start 07/12/17 at 12:00; Stop 07/14/17 at 14:31; Status DC Propofol (Diprivan 200 Mg/20 ml Inj) 200 mg STK-MED ONCE IV ; Start 07/12/17 at 12:00; Stop 07/14/17 at 14:31; Status DC A/P Problem List: (1) Chest pain ICD Code: R07.9 - Chest pain, unspecified (2) Hypokalemia ICD Code: E87.6 - Hypokalemia (3) Hypomagnesemia ICD Code: E83.42 - Hypomagnesemia (4) Dehydration ICD Code: E86.0 - Dehydration (5) HTN (hypertension) ICD Code: I10 - Essential (primary) hypertension (6) UTI (urinary tract infection) ICD Code: N39.0 - Urinary tract infection, site not specified (7) DM (diabetes mellitus) ICD Code: E11.9 - Type 2 diabetes mellitus without complications Assessment and Plan A/P 1. Chest / epigastric Pain: h/o CAD s/p Cardiac Stent approx 4yrs ago. s/p cardiac cath; Status post Resolute drug-eluting stent (2.5 x 26) to the RCA, residual moderate to severe LAD in-stent restenosis. continue aspirin,Brilinta,statin, lisinopril and BB. s/p EGD with irregular Z line-otherwise normal- continue PPI- biopsy to be followed up- GI signed off. previously d/w ; cleared for discharge with outpatient f/u. 2. Hypokalemia:will replace and monitor. 3. Hypomagnesemia: replaced. 4. Dehydration: received IVF. 5. abnormal UA; UC with mixed bacteria- stopped antibiotic. 6. DM: Sliding scale w/ Accu-Cheks- resume metformin upon discharge. Discharge Planning likely dc home later this afternoon after potassium has been replaced. f/u; pcp and cardiology upon discharge. see med list. d/w the patient and previously with . time spent 35 min. Leatha Tom MD Jul 15, 2017 09:03
[2017-07-15] MEDS ORDERED: LISI-519 PO (09:05)
[2017-07-15] MEDS ORDERED: BRIL90TA PO (09:05)
--- NOTE | 2017-07-15 09:06 | HHI.DS ---
Discharge Summary Admission Date Jul 10, 2017 at 02:43 Discharge Date: Jul 15, 2017 Admitting Diagnosis cp r/o mi, hypokalemia (1) Chest pain ICD Code: R07.9 - Chest pain, unspecified Diagnosis: Principal (2) Hypokalemia ICD Code: E87.6 - Hypokalemia Diagnosis: Secondary (3) Hypomagnesemia ICD Code: E83.42 - Hypomagnesemia Diagnosis: Secondary (4) Dehydration ICD Code: E86.0 - Dehydration Diagnosis: Secondary (5) HTN (hypertension) ICD Code: I10 - Essential (primary) hypertension Diagnosis: Secondary (6) DM (diabetes mellitus) ICD Code: E11.9 - Type 2 diabetes mellitus without complications Diagnosis: Secondary Procedures EGD cardiac cath Brief History - From Admission This is a 72-year-old female with a PMH of Depression, HTN, Hyperlipidemia, GERD , Gout, Asthma, DM and Hypothyroidism who presented to the ER with complaints of chest pain x2-3 days. States symptoms have been intermittent but have gotten progressively worse. Notes pain mostly underneath left breast and epigastric region. Denies nausea, vomiting or diarrhea. H/o CAD s/p Stent approx 4-5yrs ago. States she follows w/ Dr. Kirkpatrick but hasn't seen him in several years. No c/o SOB, cough or sick contacts. On arrival, BUN 38/93, HR 90, O2 sat 98% on RA, Afebrile. WBC 15.6. K+ 2.4. GFR 56. Trop negative. INR 1.1. U/a w/ UTI. CXR w/ no acute findings. Currently chest pain free. S/ p K+ replacement in ER. CBC/BMP: 07/15/17 0545 07/15/1745 Significant Findings Laboratory Tests Test 07/13/17 05:40 07/15/17 05:45 White Blood Count 12.8 TH/MM3 (4.0-11.0) Red Blood Count 3.33 MIL/MM3 (4.00-5.30) 3.18 MIL/MM3 (4.00-5.30) Hemoglobin 9.4 GM/DL (11.6-15.3) 8.9 GM/DL (11.6-15.3) Hematocrit 28.3 % (35.0-46.0) 26.8 % (35.0-46.0) Neutrophils (%) (Auto) 75.3 % (16.0-70.0) Random Glucose 135 MG/DL (74-106) Potassium Level 3.0 MEQ/L (3.5-5.1) Chloride Level 97 MEQ/L (98-107) Carbon Dioxide Level 32.6 MEQ/L (21.0-32.0) PE at Discharge GENERAL: This is a well-nourished, well-developed patient, in no apparent distress. CARDIOVASCULAR: Regular rate and regular rhythm without murmurs, gallops, or rubs. RESPIRATORY: Clear to auscultation. Breath sounds equal bilaterally. No wheezes , rales, or rhonchi. chest is tender to touch. GASTROINTESTINAL: Abdomen soft, non-tender, nondistended. Normal, active bowel sounds MUSCULOSKELETAL: Extremities without clubbing, cyanosis, or edema. NEURO: Alert & Oriented x4 to person, place, time, situation. Moves all ext x4 Hospital Course 1. Chest / epigastric Pain: h/o CAD s/p Cardiac Stent approx 4yrs ago. s/p cardiac cath; Status post Resolute drug-eluting stent (2.5 x 26) to the RCA, residual moderate to severe LAD in-stent restenosis. continue aspirin,Brilinta,statin, lisinopril and BB. s/p EGD with irregular Z line-otherwise normal- continue PPI- biopsy to be followed up- GI signed off. previously d/w ; cleared for discharge with outpatient f/u. 2. Hypokalemia:will replace and monitor. 3. Hypomagnesemia: replaced. 4. Dehydration: received IVF. 5. abnormal UA; UC with mixed bacteria- stopped antibiotic. 6. DM: Sliding scale w/ Accu-Cheks- resume metformin upon discharge. Pt Condition on Discharge: Good Discharge Disposition: Discharge Home Discharge Time: > 30 minutes Discharge Instructions DIET: Follow Instructions for: Heart Healthy Diet, Diabetic Diet Activities you can perform: Regular-No Restrictions Follow up Referrals: Gastroenterology PCP Follow-up New Medications: Amlodipine (Norvasc) 5 Mg Tab 5 MG PO DAILY for hypertension for 30 Days, #30 TAB 0 Refills Lisinopril (Lisinopril) 5 Mg Tab 5 MG PO DAILY for cad for 30 Days, #30 TAB 0 Refills Metoprolol Tartrate (Lopressor) 50 Mg Tab 50 MG PO Q12HR for hypertension for 30 Days, TAB 0 Refills Ticagrelor (Brilinta) 90 Mg Tab 90 MG PO BID for cad for 30 Days, #60 TAB 0 Refills Changed Medications: Furosemide (Furosemide) 40 Mg Tab 40 MG PO DAILY for diuretic for 30 Days, #30 TAB 0 Refills (Changed from: BID; 60) Potassium Chloride ER (Potassium Chloride ER) 10 Meq Cap 20 MEQ PO DAILY for Electrolyte Replacement, #30 CAP 0 Refills (Changed from: 10 MEQ) Continued Medications: Allopurinol (Allopurinol) 300 Mg Tab 300 MG PO DAILY for Gout, #30 TAB 0 Refills Aspirin (Aspirin) 81 Mg Chew 81 MG CHEW DAILY, TAB 0 Refills Atorvastatin (Atorvastatin) 40 Mg Tab 40 MG PO HS for Cholesterol Management, #30 TAB 0 Refills Baclofen (Baclofen) 20 Mg Tab 20 MG PO TID for Muscle Spasm, TAB 0 Refills Gabapentin (Gabapentin) 300 Mg Cap 300 MG PO TID, #90 CAP 0 Refills Lansoprazole (Lansoprazole) 30 Mg Capdr 30 MG PO DAILY, CAP 0 Refills Levothyroxine (Levothyroxine) 75 Mcg Tab 75 MCG PO DAILY for Thyroid, #30 TAB 0 Refills Metformin (Metformin) 500 Mg Tab 500 MG PO BIDPC for Blood Sugar Management, #60 TAB 0 Refills Sertraline (Sertraline) 50 Mg Tab 50 MG PO DAILY, #30 TAB 0 Refills Discontinued Medications: Amlodipine (Amlodipine) 10 Mg Tab 10 MG PO DAILY for Blood Pressure Management, #30 TAB 0 Refills Metoprolol Tartrate (Metoprolol Tartrate) 100 Mg Tab 150 MG PO BID, #60 TAB 0 Refills Leatha Tom MD Jul 15, 2017 09:06
[2017-07-15] MEDS ORDERED: POTASSIUM CHLORIDE 20 MEQ CONTROLLED RELEASE TAB PO ONE (09:15)
[2017-07-15] MEDS ORDERED: POTASSIUM CHLORIDE 10 MEQ CONTROLLED RELEASE TAB PO ONE (11:00)
--- NOTE | 2017-07-17 09:09 | CATHPROC ---
[employer] HIS Report Study Information Study Number Admission Scheduled Start Study Start [id number] Jul 10 2017 2:43AM 07/14/2017 Jul 14 2017 10:49AM [place] [facility] Cardiac Catheterization Admit Source Facility Department Other [facility] - [facility]ter Physician and Clinical Staff Initial Errol Thurston Diamond Powder Technician Lj Nowak Other cathlab, cathlab Recorder Loree Kaiser,RT(R) TECH2 Scrub Kristie Beck,MAPPING TECHNICIAN TECH2 Procedures Performed Procedure Location (Site) Vessel Name Coronary Angiograms LCA Left Coronary Coronary Angiograms RCA Right Coronary Drug Eluting Inflatio RCA Mid Right Coronary PTCA RCA Mid Right Coronary PTCA ADD ON'S Wire insertion Radial (right) Radial Art. Equipment Time Order Manager Description Size Mfg Part Number Used/Scraped [id number] 11:32 OmPrompt CRITICAL CARE WIRE, ASASunFunder PROWATER 180CM 180CM Used *[id number] TRANSDUCER, TRUWAVE [id number] 10:51 DISLA ORTIZ * Used W/STOCKCOCK *[id number] 11:34 CORDIS/ FAIZA JR 4.0 GUIDE CATHETER 55CM FR 6 Used *[id number] [id number] *[id number] 534-521T *[id number] 10:51 Etubics PACK, CCL CUSTOM * Used *[id number] 10:51 Etubics SUPPORT, ARTERIAL ADULT 59001 *[id number] Used [id number] 11:40 MEDTRONIC BALLOON, 2.0 X 20MM EUPHORA 20MM Used *[id number] BALLOON, 2.5 X 15MM NC [id number] 11:53 MEDTRONIC 15MM Used EUPHORA *[id number] STENT, 2.5 26 RESOLUTE [id number] 11:50 MEDTRONIC 2.5 26 Used INTEGRITY RX *[id number] 11:32 High Density Networks 30 MELVINA INDEFLATOR Used *[id number] BAND, RADIAL COMPRESSION TR [id number] 12:05 [employer] MEDICAL 29CM Used LARGE 29 *[id number] 10:51 [employer] Networks WIRE, EXCHANGE 260CM 3MMJ 260CM Used *[id number] 10:51 NAMIC MANIFOLD, 4 PORT * Used *[id number] 10:51 NYCOMED OMNIPAQUE, 350 MG, 150ML 150ML [id number] Used 11:32 NYCOMED OMNIPAQUE, 350 MG, 150ML 150ML [id number] Used [id number] 10:51 [facility] [place] BLANKET,WARM AIR CCL * Used *[id number] SHEATH, FR6 TRANSRADIAL RM*[id number] 10:51 Base79 FR 6 Used SLENDER 10CM *[id number] Equipment Model, Serial, Lot Number and Expiration Data Description Model Number Serial Number Lot Number Expiration Date STENT, 2.5 26 RESOLUTE [id number] 10-15-2018 INTEGRITY RX History: Current Medications Medication Dosage/Unit Route Frequency Last Date/Time Taken ASA Statins (any) Glucophage LOPRESSOR LASIX History: Allergies Allergy Reaction RED SNAPPER HIVES WOOL HIVES bees HIVES History: Risk Factors Family History of Hypertension Dyslipidemia Previous RI Previous Heart Failure Premature CAD Yes No No Yes No Prior Valve Prior PCI Prior PCIDate Prior CABG Surgery No Yes 09/25/2005 No Cerebrovascular Peripheral Artery Chronic Lung On Dialysis Diabetes Diabetes Therapy Disease Disease Disease Yes No No Yes Yes Oral History: Symptoms/Diagnosis Selection Items Chest pain History: Stress Tests Stress or Imaging Studies Performed No History: Other Disease Selection Items CAD HTN History: Other Current Smoker No Labs Hgb (g/dl) Hct (%) RBC (MIL/MM3) WBC (l/cumm) Platelets (thousands) 11.60-17.00 35.00-51.00 4.00-5.90 4.00-11.00 150.00-450.00 9.4 28.3 4 12.8 370 Glucose (mg/dl) BUN (mg/dl) Creatinine (mg/dl) BUN:Creatinine (1:x) 74.00-106.00 7.00-18.00 0.50-1.30 10.00-20.00 128 12 0.6 20 Na (meq/l) K (meq/l) Cl (meq/l) CO2 (mmol/L) Ca (mg/dl) 136.00-145.00 3.50-5.10 98.00-107.00 21.00-32.00 8.50-10.10 138 3.7 94 31.3 8 PT (sec) PTT (sec) INR (PTT:PT) 9.80-11.60 24.30-30.10 0.90-1.10 12 32.9 1.1 Troponin I (ng/ml) CPK-MB (ng/ML) 0.02-0.05 0.50-3.60 0.02 Not Drawn Medication Medication Total Dose (Bolus/Oral) Medication Total Dosage/Unit 1% XYLOCAINE 20 mL BRILLINTA 180 mg FENTANYL 25 mcg HEPARIN 7000 units RADIAL COCKTAIL 5 mL (Bolus) VERSED 0.5 mg Medications (Bolus/Oral) Medication Time Given Dosage/Unit Administered By Reason 07/14/2017 11:16:45 VERSED 0.5 mg Lj Nowak AM 0.5 mg VERSED given in lab by Lj Nowak in Right Hand via Peripheral IV. 07/14/2017 11:16:56 1% XYLOCAINE 20 mL Errol Marinelli AM 20 mL 1% XYLOCAINE given in lab by Errol Marinelli in Right Radial via Subcutaneous. 07/14/2017 11:19:00 FENTANYL 25 mcg Lj Nowak AM 25 mcg FENTANYL given in lab by Lj Nowak via Peripheral IV. Ordered by Errol Marinelli 07/14/2017 11:20:59 Ntg 200mcg Verapamil 2.5mg Heparin RADIAL COCKTAIL 5 mL (Bolus) Errol Marinelli AM 2000U 5 mL (Bolus) RADIAL COCKTAIL given in lab by Errol Marinelli via Radial. Using [Solution Name]. R keara: Ntg 200mcg Verapamil 2.5mg Heparin 2000U. 07/14/2017 11:32:00 HEPARIN 6000 units Lj Nowak AM 6000 units HEPARIN given in lab by Lj Nowak via Peripheral IV. Ordered by Errol Marinelli 07/14/2017 11:50:00 HEPARIN 1000 units Lj Nowak AM 1000 units HEPARIN given in lab by Lj Nowak via Peripheral IV. Ordered by Errol Marinelli 07/14/2017 12:02:02 BRILLINTA 180 mg Lj Nowak PM 180 mg BRILLINTA given in lab by Lj Nowak in Per mouth via Oral. Initial Case Assessment Cardiovascular HR Rhythm NIBP Chest Pain 72 sr 145/61 0 Edema Present Skin color Skin None Normal Warm Dry Circulatory - Right Pulses Dorsalis Pedis Femoral Radial 2 2 2 Scale (0,1,2,3,4,d) Scale (0,1,2,3,4,d) Neurological State Oriented to time-place- Alert Moves all extremities person Respiration - General Respiration Rate SpO2 (%) (B/min) 19 94 Final Case Assessment Cardiovascular HR Rhythm NIBP Chest Pain 71 sr 164/72 0 Edema Present Skin color Skin None Normal Warm Dry Circulatory - Right Pulses Dorsalis Pedis Femoral Radial 2 2 2 Scale (0,1,2,3,4,d) Scale (0,1,2,3,4,d) Neurological State Oriented to time-place- Alert Moves all extremities person Respiration - General Respiration Rate SpO2 (%) (B/min) 18 97 Chronological Log Time Study Chronological Log 10:49:23 Patient arrived via Bed. 10:49:23 Patient Name, D.O.B, / Armband Verified By R.N. 10:49:24 Consent signed by the physician and the patient and verified by the [facility] staff. 10:49:25 Pre-op and post- op instructions given; patient acknowledges understanding of instructions. 10:49:30 Verbal Stimulation=2 Physical Stimulation=2 Airway=2 Respiration=2 TOTAL=8. (0=absent, 1=li mited, 2=present) 10:49:34 Allens test performed on the right radial and ulnar artery. 10:49:45 Patient has been NPO for More than 6Hrs. 10:49:46 Skin Breakdown- 10:49:47 Patient Warmer Placed on the Table. Vitals capture started with the following parameters, Patient=Adult, Interval=5 min, Initial Pr xdbnub=716 mmHg, 10:51:21 Deflation Rate=5 mmHg, Cuff placed on Left Arm 10:51:39 Vitals capture stopped. 10:51:47 MD arrived. Assessment: Initial Case, HR=72 BPM, Rhythm=sr, DMYM=374/61 mmhg, Chest Pain=0, Edema=None, Col or=Normal, Skin = Warm, Dry 10:52:00 Right Pulses: Justo Ped=2, Femoral=2, Radial=2 Neurological: State=Alert, Ox3, WISE Respiration: Resp=19 B/min, SpO2=94 % Vitals capture started with the following parameters, Patient=Adult, Interval=5 min, Initial Pr skzdjz=277 mmHg, 10:52:37 Deflation Rate=5 mmHg, Cuff placed on Left Arm 10:53:38 HR=73 bpm, PLZJ=178/61 mmhg, SpO2=93 %, Resp=18 B/min, Pain=0, Carmel=10, Nagel=2 10:53:51 Reference ECG taken 10:58:14 HR=72 bpm, BUWW=988/79 mmhg, SpO2=91 %, Resp=16 B/min, Pain=0, Carmel=10, Angel=2 Vitals capture started with the following parameters, Patient=Adult, Interval=5 min, Initial Pr avljha=366 mmHg, 11:03:35 Deflation Rate=5 mmHg, Cuff placed on Left Arm 11:10:08 Right radial, right brachial, and groin(s) prepped with 2% chlorhexidine, and draped after a 3 min. waiting time. Vitals capture started with the following parameters, Patient=Adult, Interval=5 min, Initial Pr ulfhpm=687 mmHg, 11:11:50 Deflation Rate=5 mmHg, Cuff placed on Left Arm 11:12:30 HR=70 bpm, PYGW=465/87 mmhg, SpO2=96.0 %, Resp=14 B/min, Pain=2, Carmel=10, Angel=2 11:16:45 0.5 mg VERSED given in lab by Lj Nowak in Right Hand via Peripheral IV. Time Out. Correct patient, correct procedure, correct physician, power injector not loaded with contrast with surgical 11:16:48 team present. Time Out Concurred by MD and individual staff in procedure. 11:16:55 Case Start 11:16:56 20 mL 1% XYLOCAINE given in lab by Errol Marinelli in Right Radial via Subcutaneous. 11:17:29 HR=68 bpm, UBWC=966/78 mmhg, SpO2=95.0 %, Resp=14 B/min, Pain=2, Carmel=10, Angel=2 11:17:29 Pressure channel 1 zeroed. 11:17:48 Access site was Radial Artery. A SHEATH, FR6 TRANSRADIAL SLENDER 10CM FR 6 was advanced into the Radial (right) using the Perc utaneous 11:17:54 technique. 11:19:00 25 mcg FENTANYL given in lab by Lj Nowak via Peripheral IV. Ordered by Tanesha Marinelli 5 mL (Bolus) RADIAL COCKTAIL given in lab by Errol Marinelli via Radial. Using [Solution Na me]. Reason: Ntg 11:20:59 200mcg Verapamil 2.5mg Heparin 2000U. A JR 4.0 INFINITI CATHETER FR 5 was advanced over a wire. OMNIPAQUE, 350 MG, 150ML 150ML was us ed for 11:21:13 injections. 11:22:26 HR=91 bpm, ZEZW=520/70 mmhg, SpO2=93.0 %, Resp=14 B/min, Pain=2, Carmel=10, Angel=2 Recorded Pressure: LV, HR=84, Condition=Condition 1 11:23:08 (Left Ventricle) LV 110/15/18 Recorded Pressure: LV, Ao, HR=85, Condition=Condition 1 11:23:31 (Left Ventricle) LV 121/16/20, (Aorta) Ao 111/67/85 Recorded Pressure: Ao, HR=83, Condition=Condition 1 11:23:42 (Aorta) Ao 111/66/85 11:24:21 The RCA was injected and visualized at various angles. OMNIPAQUE, 350 MG, 150ML 150ML used . 11:25:59 Catheter was removed A JL 3.5 INFINITI CATHETER FR 5 was advanced over a wire. OMNIPAQUE, 350 MG, 150ML 150ML was us ed for 11:26:15 injections. 11:27:23 HR=82 bpm, LARX=889/80 mmhg, SpO2=94.0 %, Resp=13 B/min, Pain=2, Carmel=10, Angel=2 Recorded Pressure: Ao, HR=85, Condition=Condition 1 11:27:45 (Aorta) Ao 109/67/86 11:27:59 The LCA was injected and visualized at various angles. OMNIPAQUE, 350 MG, 150ML 150ML used . 11:31:03 Catheter was removed 11:32:00 6000 units HEPARIN given in lab by Lj Nowak via Peripheral IV. Ordered by Errol Marinelli 11:32:20 OMNIPAQUE, 350 MG, 150ML 150ML and 30 MELVINA INDEFLATOR added. 11:32:22 HR=84 bpm, XOVQ=042/88 mmhg, SpO2=95 %, Resp=14 B/min, Pain=2, Carmel=10, Angel=2 A JR 4.0 GUIDE CATHETER 55CM FR 6 was advanced over a wire. OMNIPAQUE, 350 MG, 150ML 150ML was used for 11:33:42 injections. 11:35:56 A WIRE, ASAHI PROWATER 180CM 180CM was inserted via Radial (right). 11:37:25 HR=82 bpm, WUFT=251/83 mmhg, SpO2=95.0 %, Resp=12 B/min, Pain=2, Carmel=10, Angel=2 11:38:00 Interventional wire has crossed the lesion A BALLOON, 2.0 X 20MM EUPHORA 20MM was inserted over WIRE, ASAHI PROWATER 180CM 180CM via the R adial 11:42:05 (right). A BALLOON, 2.0 X 20MM EUPHORA 20MM over a WIRE, ASAHI PROWATER 180CM 180CM in the RCA Mid was i nflated 11:42:23 using a 30 MELVINA INDEFLATOR at 14 melvina for 30 sec. 11:42:31 HR=69 bpm, VVWG=716/76 mmhg, SpO2=97 %, Resp=13 B/min, Pain=2, Carmel=10, Angel=2 A BALLOON, 2.0 X 20MM EUPHORA 20MM over a WIRE, ASAHI PROWATER 180CM 180CM in the RCA Mid was i nflated 11:43:38 using a 30 MELVINA INDEFLATOR at 14 melvina for 14 sec. 11:43:52 Balloon Removed. 11:46:24 ACT (Normal Range 90-180) = 270 11:47:28 HR=70 bpm, DSCC=442/76 mmhg, SpO2=95.0 %, Resp=16 B/min, Pain=2, Carmel=10, Angel=2 A STENT, 2.5 26 RESOLUTE INTEGRITY RX 2.5 26 was advanced through a JR 4.0 GUIDE CATHETER 55CM FR 6 over 11:49:46 a WIRE, ASAHI PROWATER 180CM 180CM. 11:50:00 1000 units HEPARIN given in lab by Lj Nowak via Peripheral IV. Ordered by Errol Marinelli A STENT, 2.5 26 RESOLUTE INTEGRITY RX 2.5 26 was deployed using a 30 MELVINA INDEFLATOR at 9 atmosp heres for 30 11:50:52 seconds in the RCA Mid. 11:51:42 Delivery device removed 11:52:25 HR=70 bpm, KWNB=969/86 mmhg, SpO2=95.0 %, Resp=11 B/min, Pain=2, Carmel=10, Angel=2 A BALLOON, 2.5 X 15MM NC EUPHORA 15MM was inserted over WIRE, ASAHI PROWATER 180CM 180CM via th e Radial 11:52:59 (right). A BALLOON, 2.5 X 15MM NC EUPHORA 15MM over a WIRE, ASAHI PROWATER 180CM 180CM in the RCA Mid wa s 11:53:35 inflated using a 30 MELVINA INDEFLATOR at 16 melvina for 32 sec. A BALLOON, 2.5 X 15MM NC EUPHORA 15MM over a WIRE, ASAHI PROWATER 180CM 180CM in the RCA Mid wa s 11:55:05 inflated using a 30 MELVINA INDEFLATOR at 16 melvina for 20 sec. 11:57:30 HR=70 bpm, WVCX=344/84 mmhg, SpO2=94.0 %, Resp=16 B/min, Pain=2, Carmel=10, Angel=2 11:58:20 Balloon Removed. 11:58:27 Catheter was removed 12:02:02 180 mg BRILLINTA given in lab by Lj Nowak in Per mouth via Oral. 12:03:08 HR=71 bpm, ZLJB=621/72 mmhg, SpO2=94.0 %, Resp=13 B/min, Pain=2, Carmel=10, Angel=2 Assessment: Final Case, HR=71 BPM, Rhythm=sr, GKAA=482/72 mmhg, Chest Pain=0, Edema=None, Color =Normal, Skin = Warm, Dry 12:03:25 Right Pulses: Justo Ped=2, Femoral=2, Radial=2 Neurological: State=Alert, Ox3, WISE Respiration: Resp=18 B/min, SpO2=97 % 12:03:28 cicu called. Spoke to community development manager 12:04:28 Contrast Scanned 12:04:42 Implantable Device card placed in patient's chart. 12:05:07 No case complications noted. Radial Compression Device Used. 9 mLs of air placed in BAND, RADIAL COMPRESSION TR LARGE 29 29 CM. Affected 12:05:16 hand 97 % O2 saturation. 12:05:34 Case End 12:05:38 Cine recording checked. 12:05:42 Sterile dressing applied to site 12:07:20 Patient moved to stretcher 12:07:34 HR=70 bpm, TNJZ=710/72 mmhg, SpO2=97.0 %, Resp=21 B/min 12:12:33 Vitals capture stopped. End Study - Contrast Media Used In Study Contrast Total Opened (mL) Total Used (mL) Total Wasted (mL) Omnipaque 95 95 0 End Study - Maximum Contrast Load Max Contrast Load (mL) 841.7 End Study - Radiation Exposure Fluoro Time (minutes) 7.4 End Study - Patient Disposition Complications Transferred To Interventional Outcome No Telemetry Bed successful
== END 2017-07-15 16:38 | disposition home or self-care (01) | DRG 247 ==
LOC: NEPE 22:51 → NEDA 07-10 02:43 → NEDH 07-10 03:59 → HCIN 07-10 14:02
PROVIDERS: ADMIT Internal Medicine; ATTEND Internal Medicine
PROC: 0DB58ZX Excision of Esophagus, Via Natural or Artificial Opening Endoscopic, Diagnostic (ICD-10-PCS; 2017-07-12)
PROC: 4A023N7 Measurement of Cardiac Sampling and Pressure, Left Heart, Percutaneous Approach (ICD-10-PCS; 2017-07-14)
PROC: B2111ZZ Fluoroscopy of Multiple Coronary Arteries using Low Osmolar Contrast (ICD-10-PCS; 2017-07-14)
PROC: 027034Z Dilation of Coronary Artery, One Artery with Drug-eluting Intraluminal Device, Percutaneous Approach (ICD-10-PCS; principal; 2017-07-14 11:15)
DX: I25.110 Atherosclerotic heart disease of native coronary artery with unstable angina pectoris (principal); N39.0 Urinary tract infection, site not specified; R71.0 Precipitous drop in hematocrit; I50.9 Heart failure, unspecified; I11.0 Hypertensive heart disease with heart failure; Z86.74 Personal history of sudden cardiac arrest; E83.42 Hypomagnesemia; T82.855A Stenosis of coronary artery stent, initial encounter; I25.2 Old myocardial infarction; E11.9 Type 2 diabetes mellitus without complications; K27.9 Peptic ulcer, site unspecified, unspecified as acute or chronic, without hemorrhage or perforation; E87.6 Hypokalemia; E86.0 Dehydration; E03.9 Hypothyroidism, unspecified; M19.90 Unspecified osteoarthritis, unspecified site; F32.9 Major depressive disorder, single episode, unspecified; K21.9 Gastro-esophageal reflux disease without esophagitis; M10.9 Gout, unspecified; G47.30 Sleep apnea, unspecified; E66.01 Morbid (severe) obesity due to excess calories; E78.5 Hyperlipidemia, unspecified; Y83.1 Surgical operation with implant of artificial internal device as the cause of abnormal reaction of the patient, or of later complication, without mention of misadventure at the time of the procedure; Z68.39 Body mass index [BMI] 39.0-39.9, adult; Z79.84 Long term (current) use of oral hypoglycemic drugs; Z82.3 Family history of stroke; Z82.49 Family history of ischemic heart disease and other diseases of the circulatory system; Z91.030 Bee allergy status; Z95.5 Presence of coronary angioplasty implant and graft; Z96.653 Presence of artificial knee joint, bilateral
CPT/HCPCS: 71010; 78451; 80048; 80053; 81001; 82550; 82552; 82948; 83690; 83735; 83880; 84132; 84484; 85002; 85025; 85027; 85610; 85730; 87086; 88305; 92928; 93005; 93458; 99152; 99153; A9502; C1725; C1769; C1874; C1887; C1893; J0171; J0461; J0696; J1644; J1650; J1815; J2250; J2270; J3010; J3475; J3480; J7030; J7040; Q9967